=== PATIENT | female | born 1935 | race Caucasian/White ===

== ENCOUNTER → 2023-12-17 10:22 | Outpatient (REF) | payer OTHER, SELFPAY ==
[2023-12-17 13:41] LABS: Vitamin D, 25-OH*** 40.2 ng/mL (30-80)
== END ==
LOC: OLABSOL 10:22
PROVIDERS: ATTENDING PHYSICIAN Hospitalist
DX: D51.9 Vitamin B12 deficiency anemia, unspecified (principal)
CPT/HCPCS: 36415; 82306

== ENCOUNTER → 2023-12-31 13:03 | Outpatient (REF) | payer OTHER, SELFPAY | LOC: RAD 13:03 | PROVIDERS: ATTENDING PHYSICIAN Surgery Vascular Surgery; FAMILY PHYSICIAN Hospitalist; REFERRING PHYSICIAN Internal Medicine Cardiovascular Disease | DX: I73.9 Peripheral vascular disease, unspecified (principal); I47.0 Re-entry ventricular arrhythmia | CPT/HCPCS: 71046; 93922; 93925 ==

== ENCOUNTER 2024-01-30 08:21 | Emergency (ER) | payer OTHER, SELFPAY ==
[2024-01-30 08:27] VITALS: BP 183/65
--- NOTE | 2024-01-30 09:47 | ED.GENMED ---
History of Present Illness
General
Chief Complaint: Extremity Pain (non-traumatic)
Source: patient and family
Exam Limitations: none
Time Seen by Provider: 01/30/24 08:28
Travel History
Have you had any contact with someone who has COVID-19?: No
Do you have any symptoms of coronavirus? Fever > 100 degrees, chills, cough, shortness of breath, sore throat, loss of taste or smell, muscle aches, or headache?: No
History of Present Illness
History of Present Illness:
89-year-old female who presents with right hip pain. Patient is nonambulatory. The patient does transfer but has not walked in some time. The patient reports pain on the lateral aspect of the hip at the greater trochanter on the right. There has
been no fall. Patient states she has had bursitis in the past in her shoulder and it feels somewhat similar but is in her hip. She did try some Tylenol this morning. The patient admits that she does not really have any pain when she lays still.
Past History
Past History
ED Past Medical History: Cancer (Skin CA), HTN, Hypercholesterolemia, NIDDM and Psychiatric (Depression)
ED Past Surgical History: Cholecystectomy, Gynecological (, D&E), Orthopedic (Right hip surgery), Tonsilectomy and Urological (Bladder tumors remoced)
Social History
Tobacco: Non-smoker
Alcohol: Occasional
Personal:
Living: with family
Employment: Retired
Family History
Family History: Hypertension
Phy Exam
Physical Exam
Physical Exam:
CONSTITUTIONAL Vital signs reviewed, Patient alert and oriented to person, place and time. Well-appearing
HEAD atraumatic, normocephalic.
EYES eyelids normal to inspection, Extraocular muscles intact, Conjunctiva normal, Sclera normal.
NECK normal range of motion, Trachea midline, no jugular venous distention.
RESP no respiratory distress
BACK No obvious deformities
UPPER EXTREMITY Gross Range of motion normal, gross motor strength normal
LOWER EXTREMITY Gross motor strength normal. Is able to flex at but there is some pain. No pain with internal/external rotation. Normal distal perfusion
NEURO Speech normal, No focal motor deficits include, Grant coma scale 15, Memory normal, Cranial Nerves intact to screening exam.
SKIN Skin warm, dry, and normal in color.
Course
Orders/Labs/Results
Orders:
Orders
01/30/24 08:54
Hip, Right 2-3 Views [CR Hip - RT w/wo Pel 2-3 Vw*] Urgent
Comment:
Reason For Exam: nontraumatic pain
Include a pelvis x-ray?: Yes
Vital Signs
Initial and Last Documented VS:
Initial Vital Signs
Temp Pulse Resp BP Pulse Ox
97.5 F 55 20 183/65 97
01/30/24 08:27 01/30/24 08:27 01/30/24 08:27 01/30/24 08:27 01/30/24 08:27
Last Documented Vital Signs
Temp Pulse Resp BP Pulse Ox
97.5 F 55 20 183/65 97
01/30/24 08:27 01/30/24 08:27 01/30/24 08:27 01/30/24 08:27 01/30/24 08:27
MDM/Problems Addressed
MDM/Problems Addressed:
Trochanteric bursitis
*Radiology
Radiology exam reviewed: all reviewed NAD by ED Provider
*Pulse Oximetry
Patient hypoxic: no
*Critical Care Note
Total Time (30-74mins, 75-104mins- exclusive of procedures): Not Applicable
Data Reviewed
Source: patient
Prescriptions/Medications Considered But Not Given:
Considered narcotic pain medication but patient appears comfortable.
Patient Management
Escalation/DeEscalation of care consider admission/obs:
Patient appears well. Suspect trochanteric bursitis. I do feel that she is okay for very small doses of anti-inflammatories and will refer to orthopedics for possible injection if symptoms persist. Continue Tylenol. Patient is already
nonambulatory. No evidence for infection.
ED Attending Note
-
Portions of this chart may have been created with voice recognition software.� Occasional wrong word or��sound alike� substitutions may have occurred due to the inherent limitations of voice recognition software.
Discharge Plan
Departure
Patient Disposition: Home (Routine Discharge)
Date of Disposition: 01/30/24
Time of Disposition: 09:53
Patient with high blood pressure during this ER visit?: Yes
Discharge Problem:
Bursitis, trochanteric
Instructions: Bursitis (DC), BLOOD PRESSURE
Prescriptions:
No Action
cholecalciferol (vitamin D3) [Vitamin D3] 1,000 UNIT tablet
1,000 unit PO DAILY
ascorbic acid (vitamin C) [Vitamin C] 500 mg Tablet
500 mg PO DAILY PRN (Reason: supplement)
atorvastatin 10 mg Tablet
10 mg PO QPM 30 Days Qty: 0 0RF
Arthritis Hot Pain Relief 15-10 % Cream
1 applic topical QID Qty: 85 0RF
miconazole nitrate [Miconazorb AF] 2 % Powder
1 applic topical BIDPRN PRN (Reason: SKIN IRRITATION) Qty: 85 0RF
Eliquis 5 mg Tablet
5 mg PO BID Qty: 60 0RF
lidocaine 4 % Adhesive Patch,Medicated
1 patch topical DAILY Qty: 10 0RF
escitalopram oxalate 10 mg Tablet
10 mg PO DAILY Qty: 0 0RF
acetaminophen [Pain Relief ES (acetaminophen)] 500 mg Tablet
1,000 mg PO Q6HPRN PRN (Reason: pain or fever) Qty: 30 0RF
amiodarone 200 mg tablet
See Rx Instructions .ROUTE .COMPLEX Qty: 120 0RF
Rx Instructions:
2 tabs bid x 14 days, then 2 tabs daily x 14 days, then 1 tab daily
Referrals:
Christina,Marleny, [Family Provider] -
Activity Restrictions/Additional Instructions:
Please use Tylenol [id number] for pain. Please ice your injured part. Please see orthopedics in follow-up in the next 3 to 5 days. if Pain persists, injection may be necessary. Return immediately for fevers, worsening pain or any other
concerns.
Interventions
Interventions:
*Risk Screen - Suicide Last Done: 01/30/24 08:27
*General Assessment Last Done: 01/30/24 08:27
*Neglect/Abuse Screening Last Done: 01/30/24 08:27
[2024-01-30 10:35] VITALS: BP 142/70
[2024-01-30] MEDS: ULTRAM 50 MG PO (10:36)
== END 2024-01-30 11:24 | disposition home or self-care (01) ==
LOC: EMR 08:21
PROVIDERS: EMERGENCY PHYSICIAN Emergency Medicine; FAMILY PHYSICIAN Hospitalist
DX: M70.61 Trochanteric bursitis, right hip (principal); E11.9 Type 2 diabetes mellitus without complications; E78.00 Pure hypercholesterolemia, unspecified; I10 Essential (primary) hypertension; F32.A Depression, unspecified; Z82.49 Family history of ischemic heart disease and other diseases of the circulatory system; Z85.828 Personal history of other malignant neoplasm of skin; Z90.49 Acquired absence of other specified parts of digestive tract; Z96.641 Presence of right artificial hip joint
CPT/HCPCS: 99283; 73502

== ENCOUNTER 2024-02-03 18:25 | Observation (INO) | payer OTHER, SELFPAY ==
[2024-02-03] VITALS (12 sets, daily range): BP systolic 95–169; BP diastolic 49–76; PULSE 63; O2SAT 95; BMI 30.5
--- NOTE | 2024-02-03 10:22 | ED.GENMED ---
History of Present Illness
General
Chief Complaint: Musculo-Skeletal Complaint
Source: patient
Exam Limitations: none
Time Seen by Provider: 02/03/24 10:05
Nursing documentation reviewed up to this point in time: agreed with
Travel History
Have you had any contact with someone who has COVID-19?: No
Do you have any symptoms of coronavirus? Fever > 100 degrees, chills, cough, shortness of breath, sore throat, loss of taste or smell, muscle aches, or headache?: No
History of Present Illness
History of Present Illness:
81-year-old female with past medical history of A-fib currently on Eliquis hypertension hyperlipidemia, diabetes presenting to the emergency department today with concerns of right-sided hip discomfort. Was here 4 days ago for similar symptoms had
an x-ray showing significant arthritis but otherwise no fracture or emergent injuries. Was given steroids for possible bursitis. Was otherwise feeling somewhat better than Wednesday when she was transitioning from her wheelchair to her commode she
got tripped up and irritated her right hip she did not hit her head did not lose consciousness otherwise felt well but had worsening right-sided hip discomfort denies numbness weakness currently cannot stand up to her normal level she took tramadol
earlier today.
Past History
Past History
ED Past Medical History: Cancer (Skin CA), HTN, Hypercholesterolemia, NIDDM and Psychiatric (Depression)
ED Past Surgical History: Cholecystectomy, Gynecological (, D&E), Orthopedic (Right hip surgery), Tonsilectomy and Urological (Bladder tumors remoced)
Social History
Tobacco: Non-smoker
Alcohol: Occasional
Personal:
Living: with family
Employment: Retired
Family History
Family History: Hypertension
Review of Systems
Review of Systems
Allergies reviewed?: Yes
All Other Systems: ROS reviewed and negative except as documented in HPI and ROS
Phy Exam
Physical Exam
Physical Exam:
GENERAL: Alert , in no apparent distress
EYE: pupils equal and reactive
NECK: Supple, no significant adenopathy.
ENT: o/p clr, mmm.
CARDIAC: Regular rate and rhythm .
LUNGS: Clear breath sounds bilaterally, no acute respiratory distress, no wheezes/rales/rhonchi
ABDOMEN: Soft, without focal tenderness, no r/g, no cvat
NEUROLOGICAL: Alert and oriented, no focal neuro deficits
SKIN: Warm and dry, skin intact.
MUSCULOSKELETAL: No edema, well perfused. Significant increased pain to the right hip with hip flexion
PSYCH: Normal and appropriate interaction.
Course
Orders/Labs/Results
Orders:
Orders
02/03/24 10:21
CT Pelvis W/o Iv Contrast Urgent
Comment:
Reason For Exam: right hip pelvic pain, recent xray without fx
Acetaminophen [Tylenol] 1,000 mg PO NOW STA
02/03/24 11:59
Case Management Consult ONCE
Case Management Consult: Discharge Planning
Pt Eval And Treat Urgent
Activity Level: Ambulate
02/03/24 13:35
CBC/With Diff [Complete Blood Count/With Diff] Urgent
02/03/24 13:39
Oxycodone [Roxicodone] 5 mg PO NOW STA
02/03/24 13:56
Comprehensive Metabolic Panel Urgent
Comment: REDRAW -PREVIOUS SPECIMEN HEMOLYZED
Abnormal Lab Results
02/03/24
13:35
RBC 4.14 L 10^6/uL
(4.20-5.40)
Hct 36.9 L %
(37.0-47.0)
RDW 14.9 H %
(11.5-14.5)
Absolute Monos (auto) 0.7 H 10^3/uL
(0.1-0.6)
Monocytes % 11.7 H %
(1.7-9.3)
02/03/24 13:35
Vital Signs
Initial and Last Documented VS:
Initial Vital Signs
Temp Pulse Resp BP Pulse Ox
97.6 F 65 16 159/62 100
02/03/24 10:04 02/03/24 10:04 02/03/24 10:04 02/03/24 10:04 02/03/24 10:04
Last Documented Vital Signs
Temp Pulse Resp BP Pulse Ox
97.6 F 62 18 139/69 97
02/03/24 10:04 02/03/24 17:00 02/03/24 17:00 02/03/24 17:00 02/03/24 17:08
MDM/Problems Addressed
MDM/Problems Addressed:
89-year-old female presenting to the emergency department today with concerns of right-sided hip discomfort make it difficult to ambulate at this point. Typically at baseline will transfer does not walk on her own. Unable to transfer at this point
at her nursing facility. Currently in assisted care denies additional injuries. Here she has increased discomfort with hip flexion no overlying redness or swelling or warmth. Plan for CT scan for further assessment concerning recent x-ray did not
show any specific findings other than arthritis. CT scan without emergent findings patient unable to ambulate with PT case management unable to upgrade her care today plan to admit for further management.
*Critical Care Note
Total Time (30-74mins, 75-104mins- exclusive of procedures): Not Applicable
ED Attending Note
-
Portions of this chart may have been created with voice recognition software.� Occasional wrong word or��sound alike� substitutions may have occurred due to the inherent limitations of voice recognition software.
Discharge Plan
Departure
Patient Disposition: Admit
Date of Disposition: 02/03/24
Time of Disposition: 17:11
Admit to: Med/Surg
Admit to doctor: Wesly
Presentation/result/management discussed w/ accepting MD/DO: Hospitalist
Patient with high blood pressure during this ER visit?: No
Condition: Good
Covid-19: Not Applicable
Discharge Problem:
Hip pain, right, Ambulatory dysfunction
Prescriptions:
No Action
ascorbic acid (vitamin C) [Vitamin C] 500 mg Tablet
500 mg PO DAILY
atorvastatin 10 mg Tablet
10 mg PO QPM 30 Days Qty: 0 0RF
Eliquis 5 mg Tablet
5 mg PO BID Qty: 60 0RF
prednisone 10 mg Tablet
See Rx Instructions .ROUTE .COMPLEX Qty: 30 0RF
Patient Comments:
02/03/2024, per daughter, pt. started taking this med. on Wednesday (01/30/2024) and she takes it after dinner; pt. is on her second dose of 30 mg today but hasn't taken it yet.
Rx Instructions:
02/03/2024,
Take By Mouth:
40 mg daily x3 days, 30 mg daily x3 days,
20 mg daily x3 days, 10 mg daily x3 days.
sennosides [senna] 8.6 mg Tablet
17.2 mg PO DAILYPRN PRN (Reason: constipation)
lidocaine [Aspercreme (lidocaine)] 4 % Adhesive Patch,Medicated
1 patch TOPICAL DAILY PRN (Reason: apply to right hip)
amiodarone 200 mg Tablet
200 mg PO DAILY
acetaminophen [Tylenol Extra Strength] 500 mg Tablet
1,000 mg PO Q6H PRN (Reason: mild pain)
lisinopril 5 mg Tablet
5 mg PO DAILY
furosemide 20 mg Tablet
20 mg PO MOTH@0800
calcium citrate-vitamin D3 250 mg-5 mcg (200 unit) Tablet
2 tab PO BID
Muscle Rub 15-10 % Cream
1 applic TOPICAL QIDPRN PRN (Reason: apply to right hip)
Medi-Honey
1 applic topical TUTHSA
tramadol 50 mg tablet
50 mg PO TID
Patient Comments:
02/03/2024, prescribed TIDPRN but pt. has been taking TID.
Referrals:
Marleny Vasquez, [Family Provider] -
Interventions
Interventions:
*Risk Screen - Suicide Last Done: 02/03/24 10:09
*General Assessment Last Done: 02/03/24 10:09
*Neglect/Abuse Screening Last Done: 02/03/24 10:09
*ED COVID-19 Vaccine History Last Done: 02/03/24 10:09
ED-Musculoskeletal Assessment Last Done: 02/03/24 10:10
[2024-02-03] MEDS: TYLENOL 1000 MG PO (10:58)
[2024-02-03 13:45] LABS: % Immature Granulocytes 0.2 % (0-0.5); % Lymphocytes 21.1 % (20.5-51.1); % Monocytes 11.7 % (1.7-9.3); Absolute Lymphocytes 1.3 10^3/uL (1.2-3.4); Absolute Monocytes 0.7 10^3/uL (0.1-0.6); Absolute Neutrophils 4.1 10^3/uL (1.4-6.5); Hematocrit 36.9 % (37.0-47.0); Hemoglobin 12.6 g/dL (12.0-16.0); Mean Corp Hgb Conc. 34.1 g/dL (33.0-37.0); Mean Corpuscular Hgb 30.4 pg (27.0-31.0); Mean Corpuscular Volume 89.1 fL (81.0-99.0); Nucleated Red Blood Cells % 0 %; Platelet Count 226 10^3/uL (130-400); Red Blood Cell Count 4.14 10^6/uL (4.20-5.40); Red Cell Dist. Width 14.9 % (11.5-14.5); White Blood Cell Count 6.1 10^3/uL (4.8-10.8)
[2024-02-03] MEDS: ROXICODONE 5 MG PO (13:52)
--- NOTE | 2024-02-03 14:58 | CM ---
Patient seen in ED with daughter Martha.
Patient from [facility]..
TC to Jaspreet from [place] to see if patient would be accepted back with services.
Per Jaspreet, she discussed with the WIRE FRAME DIPPER and recommendation is for skilled prior to return.
PT recommending skilled rehab.
At baseline patient lives with spouse in a 1 story apartment at [place].
Patient is WC bound, independent with transfers and self care.
Now with hip pain.
Patient recently in [facility].
Discussed with patient and daughter, patient would prefer home, but agrees to rehab.
Referrals to [facility], [facility], [facility], [facility], and [facility].
Await bed availability and [employer] insurance auth.
Plan: skilled rehab when bed available and authorization received will also require ambulance authorization.
--- NOTE | 2024-02-03 17:10 | HPS.HSE ---
Addendum entered and electronically signed by Rob Cross MD 02/03/24 17:56:
I saw and examined the patient.
The METROLOGY ENGINEER or PA's note was reviewed and I agree with the note.
Comment: History as noted and discussed with patient's family at bedside (daughter on) patient has exquisite pain with any movement of the right leg although she was treated for a right greater trochanteric bursitis for point of tenderness seems to
be in the midshaft laterally of her right femur x-ray and CT results noted and reviewed and no signs of fracture as per the request of the patient's daughter regarding an injection I do not see where a steroid injection would be of help in this
setting as pain seems to be mostly referred to the area of the midshaft right femur and a more of the vastus lateralis area over her right thigh rating down to her leg with any movement apparently the patient is wheelchair-bound but point of
contention seems to be mainly pain management at this point and will try and optimize that by placing her on a combination of oxycodone and acetaminophen such as Percocet should that be unsuccessful may be a trial of hydrocodone such as Vicodin may
also offer some benefit doubt the steroid management she has had the last several days has done much to alleviate her pain will need to see if we can get her into a rehab facility in the next 24 hours and will treat his chronic ambulatory
dysfunction with and the need for higher level of care than when she came from for further management as her contralateral hip has severe degenerative joint disease and probably also needs to be replaced
Original Note:
Family Physician
-
Family Physician: Marleny Vasquez,
Chief Complaint
-
Weakness unable to stand
History of Present Illness
89-year-old female from [facility] assisted living who reportedly was pivoting 4 days ago and was seen in the ER for pain in her right hip and discharged with right hip bursitis. They are was no evidence of fracture. He started taking prednisone on
01/30/2024 she is on her second dose of 30 mg 1 day left then 20 x 3 then 10 x 3. Her daughter states she did fall 2 days ago at home. SHe normally stands and pivots to a wheelchair at her assisted living but has been unable to do so for the past 2
days and facility states she needs higher level of care. In the ER she had a CT of the pelvis showing history of right hip replacement no acute fractures.
She has past medical history of A-fib, NSTEMI, aortic stenosis ,HTN, HLD, chronic ambulatory dysfunction stands to pivot to wheelchair, arthritis, diet-controlled DM2, bladder and skin cancer, depression, chronic peripheral edema.
Medical History
Past Medical History
Past Medical History: Reports Other
Additional Past Medical History:
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
Cancer (various Skin Carmen, diffent types in different places)
Status post Mohs surgery�
basal cell carcinoma��
History of melanoma
SCC (squamous cell carcinoma) of skin
essential HTN,
Hypercholesterolemia,
NIDDM
Controlled type 2 diabetes mellitus with diabetic polyneuropathy, without long-term current use of insulin
Depression
Anxiety
Overactive bladder
Hx bladder cancerGeneralized osteoarthritis
Dependence on wheelchair
Past Surgical History: Reports Other
Additional Past Surgical History:
Cholecystectomy
, D&E
Status post right hip replacement
Tonsilectomy
History of bladder cancer
-Bladder tumors removed
Social History
Tobacco: Non-smoker
Alcohol: Occasional
Drug: None
Personal:
Living: With Family
Employment: Retired
Family History
Family History: Not pertinent
Allergies / Home Medications
Allergies reflects when Allergies were last updated in [employer].
Home Medications with original date entered in [facility]
Allergy/Medication List:
Allergies
Allergy/AdvReac Type Severity Reaction Status Date / Time
codeine [Codeine] Allergy Unknown Verified 01/30/24 08:30
Sulfa (Sulfonamide Allergy Unknown Verified 01/30/24 08:30
Antibiotics)
Home Medications
ascorbic acid (vitamin C) 500 mg tablet (Vitamin C) 500 mg PO DAILY supplement 07/24/23
apixaban 5 mg tablet (Eliquis) 5 mg PO BID #60 tabs 07/30/23
atorvastatin 10 mg tablet 10 mg PO QPM 30 days #0 tabs 07/30/23
prednisone 10 mg tablet See Rx Instructions .Route .COMPLEX #30 tabs 01/30/24
Medi-Honey 1 applic topical TUTHSA apply to inside foot/big toe 02/03/24
acetaminophen 500 mg tablet (Tylenol Extra Strength) 1,000 mg PO Q6H PRN mild pain 02/03/24
amiodarone 200 mg tablet 200 mg PO DAILY 02/03/24
calcium citrate 250 mg calcium-vitamin D3 5 mcg (200 unit) tablet 2 tab PO BID 02/03/24
furosemide 20 mg tablet 20 mg PO MOTH@0800 02/03/24
lidocaine 4 % topical patch (Aspercreme (lidocaine)) 1 patch topical DAILY PRN apply to right hip 02/03/24
lisinopril 5 mg tablet 5 mg PO DAILY 02/03/24
methyl salicylate 15 %-menthol 10 % topical cream (Muscle Rub) 1 applic topical QIDPRN PRN apply to right hip 02/03/24
sennosides 8.6 mg tablet (senna) 17.2 mg PO DAILYPRN PRN constipation 02/03/24
tramadol 50 mg tablet 50 mg PO TID Pain 02/03/24
Review of Systems
-
History Source: Patient and Family (Daughter at bedside)
A 12 point ROS was completed and negative except as noted: Yes
EENT: Denies Sore Throat or Runny Nose
Respiratory: Denies Cough or Trouble Breathing
Cardiac: Denies Chest Pain, Diaphoresis, Palpitations or Syncope
Abdomen/GI: Denies Abdominal Pain, Nausea, Vomiting, Diarrhea, Constipated or Bloody Stools
: Denies Dysuria, Frequency, Flank Pain, Incontinence or Difficulty Voiding
Musculoskeletal: Reports Joint Pain (Right hip) and Edema (Chronic bilateral +2); Denies Joint Swelling, Muscle Pain or Muscle Stiffness
Skin: Reports Other (Healed right great toe prior ulcer); Denies Itching or Rash
Neurological: Denies Dizzy, Headache or Weakness
Endocrine: Reports No Symptoms
Hematologic/Lymphatic: Reports No Symptoms
Psych: Reports Calm
Physical Exam
Vital Signs
Vital Signs
Temp Pulse Resp BP Pulse Ox
97.6 F 62 18 139/69 97
02/03/24 10:04 02/03/24 17:00 02/03/24 17:00 02/03/24 17:00 02/03/24 17:08
Physical Exam
General: Comfortable, Conversant and Pain; No Fever or Chills
HEENT: NormoCephalic, Anicteric, PERRLA, [place] Conjunctivae and No Ptosis
Respiratory: Clear; No Wheezes, Rales or Rhonchi
Cardiac: S1/S2 and Peripheral Edema (+2 bilateral lower extremity edema); No Murmur, Rub or Gallop
Breast: Deferred by me
GI: Soft, Non Tender, Non Distended, Normal Bowel Sounds and No Hepatosplenomegaly
Genito-urinary: Deferred by me
Musculoskeletal: Edema, Left Lower Extremity (+2 bilateral lower extremity edema) and Edema, Right Lower Extremity (+2 bilateral lower extremity edema); No Edema, Left Upper Extremity or Edema, Right Upper Extremity
Skin: Warm, Dry and Ulcers (Healed right great toe prior ulcer)
Neuro: AO x 3 (Gets confused over dates times and places daughter states has short-term memory impairment), Nonfocal/grossly intact and Cranial Nerves Intact; No Slurred Speech, Facial Droop or Tremors
Psych: Calm
Laboratory Results
-
02/03/24 13:35
Laboratory Results
Total Bilirubin Cancelled 02/03/24 13:35
AST Cancelled 02/03/24 13:35
ALT Cancelled 02/03/24 13:35
Alkaline Phosphatase Cancelled 02/03/24 13:35
Impression/Plan
-
Impression/plan:
Observation MedSurg
#Acute on chronic ambulatory dysfunction status post pivoting with acute right hip pain
-Typically stands to pivot to wheelchair unable to do so
-Patient with no relief on several days of tramadol
-Percocet 03/17/2025 every 6 hours scheduled
-PT/OT/case management consult family requesting for [facility] for SNF
CT pelvis: No acute abnormalities, right hip replacement, severe arthritic changes of the left hip, multilevel lumbar DDD
#Paroxysmal A-fib
#History of cardioversions 07/27/2023, 07/29/2023
-Continue Eliquis 5 mg twice daily, amiodarone 200 mg daily
#Chronic peripheral edema
Lasix 20 mg Wednesday
Add Tubigrip's
#HTN- benign
-Continue Lisinopril 5 mg daily
#HLD
-continue atorvastatin 10 mg every afternoon
#Hx NSTEMI
-Continue statin, BP control
#Aortic stenosis
#Diet-controlled DM2
1800 ADA diet
Other PMH
Bladder cancer with tumor removal
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
DVT prophylaxis
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
DNR per patient with daughter present at bedside
[2024-02-03 20:48] LABS: ALT (SGPT) 15 U/L (0-35); AST (SGOT) 23 U/L (14-36); Albumin 3.2 g/dl (3.5-5.0); Alkaline Phosphatase 68 U/L (38-126); Blood Urea Nitrogen 32 mg/dl (7-17); Calcium 8.9 mg/dl (8.4-10.2); Carbon Dioxide 30 mmol/L (22-30); Chloride 102 mmol/L (98-107); Estimated Creatinine Clearance 43 ml/min; Glucose 103 mg/dl (70-99); Potassium 3.5 mmol/L (3.5-5.1); Sodium 137 mmol/L (135-145); Total Bilirubin 1.1 mg/dl (0.2-1.3); Total Protein 5.7 g/dl (6.3-8.2); eGFR > 60.00
[2024-02-03 21:17] LABS: Glucose - Point of Care 98 mg/dl (70-99)
[2024-02-03] MEDS: ELIQUIS 5 MG PO (22:03)
[2024-02-03] MEDS: SENOKOT 17.1999999999999993 MG PO (22:04)
[2024-02-03] MEDS: OSCAL 500 + D 500 MG PO (22:04)
[2024-02-03] MEDS: LIPITOR 10 MG PO (22:04)
[2024-02-04] MEDS: PERCOCET 5/325 1 TABLET PO ×2 (00:39→06:09)
--- NOTE | 2024-02-04 03:36 | PTCARENOTE ---
Pt received from ED [email or web address] able to make her needs known. 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
[2024-02-04 07:30] VITALS: BP 140/67
[2024-02-04 08:11] LABS: Glucose - Point of Care 77 mg/dl (70-99)
[2024-02-04 09:00] LABS: % Basophils 0.2 % (0-2); % Eosinophils 1.1 % (0-6); % Immature Granulocytes 0.2 % (0-0.5); % Lymphocytes 31.1 % (20.5-51.1); % Monocytes 11.3 % (1.7-9.3); % Neutrophils 56.1 % (42.2-75.2); Absolute Eosinophils 0.1 10^3/uL (0-0.7); Absolute Lymphocytes 1.7 10^3/uL (1.2-3.4); Absolute Monocytes 0.6 10^3/uL (0.1-0.6); Hematocrit 37.4 % (37.0-47.0); Mean Corp Hgb Conc. 32.1 g/dL (33.0-37.0); Mean Corpuscular Hgb 29.7 pg (27.0-31.0); Mean Corpuscular Volume 92.6 fL (81.0-99.0); Mean Platelet Volume 10.9 fL (7.4-10.4); Nucleated Red Blood Cells % 0 %; Platelet Count 216 10^3/uL (130-400); Red Blood Cell Count 4.04 10^6/uL (4.20-5.40); Red Cell Dist. Width 15.5 % (11.5-14.5); White Blood Cell Count 5.3 10^3/uL (4.8-10.8)
--- NOTE | 2024-02-04 09:13 | W.PN.HOSP.TC ---
Today's Communication/Plan
-
Change Percocet to [place] to see if that helps her pain anymore
Apply Lidoderm patch to the mid thigh laterally where most of her pain is
I do not think an intertrochanteric joint and injection would be of help given location of pain
In need of rehab to improve transfers to wheelchair
Assessment / Plan
Assessment / Plan
89-year-old female from [facility] assisted living who reportedly was pivoting 4 days ago and was seen in the ER for pain in her right hip and discharged with right hip bursitis.� They are was no evidence of fracture.� He started taking prednisone on
01/30/2024 she is on her second dose of 30 mg 1 day left then 20 x 3 then 10 x 3.� Her daughter states she did fall 2 days ago at home.� SHe normally stands and pivots to a wheelchair at her assisted living but has been unable to do so for the past 2
days and facility states she needs higher level of care.� In the ER she had a CT of the pelvis showing history of right hip replacement no acute fractures.
She has past medical history of A-fib, NSTEMI, aortic stenosis ,HTN, HLD, chronic ambulatory dysfunction stands to pivot to wheelchair, arthritis, diet-controlled DM2, bladder and skin cancer, depression, chronic peripheral edema.
Musculoskeletal: Edema, Left Lower Extremity (+2 bilateral lower extremity edema) and Edema, Right Lower Extremity (+2 bilateral lower extremity edema); No Edema, Left Upper Extremity or Edema, Right Upper Extremity
Skin: Warm, Dry and Ulcers (Healed right great toe prior ulcer)
Neuro: AO x 3 (Gets confused over dates times and places daughter states has short-term memory impairment), Nonfocal/grossly intact and Cranial Nerves Intact; No Slurred Speech, Facial Droop or Tremors
Psych: Calm
Observation MedSurg
#Acute on chronic ambulatory dysfunction status post pivoting with acute right hip pain
-Typically stands to pivot to wheelchair unable to do so
-Patient with no relief on several days of tramadol
-Percocet 03/17/2025 every 6 hours scheduled not very successful hold transition to hydrocodone in form of Adams today
-Either way note further criteria for him patient hospital stay and needs rehab
-PT/OT/case management consult family requesting for [facility] for SNF
� � ���CT pelvis: No acute abnormalities, right hip replacement, severe arthritic changes of the left hip, multilevel lumbar DDD
#Paroxysmal A-fib
#History of cardioversions 07/27/2023, 07/29/2023
-Continue Eliquis 5 mg twice daily, amiodarone 200 mg daily
#Chronic peripheral edema
Lasix 20 mg Wednesday
Add Tubigrip's
#HTN- benign
-Continue Lisinopril� 5 mg daily
#HLD
-continue atorvastatin 10 mg every afternoon
#Hx NSTEMI
-Continue statin, BP control
#Aortic stenosis
#Diet-controlled DM2
1800 ADA diet
Other PMH
Bladder cancer with tumor removal
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
DVT prophylaxis
Continue STOCKHOLDER Eliquis
DNR per patient with daughter present at bedside
Anticipated Discharge: Today
Subjective/Interval History
-
Date of Service: February 04, 2024
Awoke from sleep with some confusion/still admits to severe pain to her right leg but noted that she is lying on her left side with the right leg flexed at the knee limited if any range of motion
Objective Data
-
Labs:
Laboratory Results
02/04/24
07:22
WBC 5.3
Hgb 12.0
Hct 37.4
Plt Count 216
Sodium Pending
Potassium Pending
Chloride Pending
Carbon Dioxide Pending
BUN Pending
Creatinine Pending
Glucose Pending
Calcium Pending
Vital Signs:
Vital Signs
Temp Pulse Resp BP Pulse Ox
97.9 F 55 18 140/67 95
02/04/24 07:30 02/04/24 07:30 02/04/24 07:30 02/04/24 07:30 02/04/24 07:30
I&O
02/03/24 02/04/24 02/05/24
06:59 06:59 06:59
Intake Total 0 / 0
Balance 0 / 0
Review of Systems
-
Unable to obtain full review of systems at this time due to: Dementia
History Source: Patient and Family
Constitutional: Reports Fatigue and Weakness
EENT: Reports No Symptoms Reported
Respiratory: Reports No Symptoms
Cardiac: Reports No Symptoms
Musculoskeletal: Reports Muscle Pain
Skin: Reports Other (No rash)
Physical Exam
-
General: No Apparent Distress (Elicits distress with any movement of right leg)
Respiratory: Clear to Auscultation
Cardiac: Regular Rhythm
GI: Soft
Neuro: Awake, Alert and Oriented
Psych: Calm
Data Reviewed
-
Total Time Spent with Patient (in minutes): 45
Labs: Labs Reviewed by me (Labs stable)
[2024-02-04 09:47] LABS: Blood Urea Nitrogen 27 mg/dl (7-17); Calcium 8.3 mg/dl (8.4-10.2); Carbon Dioxide 30 mmol/L (22-30); Chloride 104 mmol/L (98-107); Estimated Creatinine Clearance 43 ml/min; Glucose 76 mg/dl (70-99); Potassium 3.7 mmol/L (3.5-5.1); Sodium 136 mmol/L (135-145); eGFR > 60.00
[2024-02-04] MEDS: ELIQUIS 5 MG PO (09:57)
[2024-02-04] MEDS: VITAMIN C 500 MG PO (09:57)
[2024-02-04] MEDS: ZESTRIL 5 MG PO (09:57)
[2024-02-04] MEDS: OSCAL 500 + D 500 MG PO (09:58)
[2024-02-04] MEDS: PACERONE 200 MG PO (09:58)
[2024-02-04] MEDS: NORCO 7.5/325 1 TABLET PO (10:05)
[2024-02-04] MEDS: LIDOCAINE 4% PATCH 1 PATCH TOPICAL (10:05)
[2024-02-04 11:56] LABS: Glucose - Point of Care 82 mg/dl (70-99)
[2024-02-04 12:25] VITALS: BP 160/61; PULSE 54; O2SAT 95
--- NOTE | 2024-02-04 13:13 | W.DS.TRANS ---
DC Summary - Child Care Aide
-
Discharge Instructions:
Sleep Apnea Risk Low
Discharge Diagnosis/Procedures Ambulatory dysfunction
Degenerative joint disease of the hip
No signs of fracture via imaging
Musculoskeletal pain
Diet As tolerated
Additional Activity Goal toward pivot transfers into wheelchair
Instructions:
Stand-Alone Forms:
Changes to Home Medications: Yes
Discharge Medications:
DC Medications w/original date entered in [facility]
ascorbic acid (vitamin C) 500 mg tablet (Vitamin C) 500 mg PO DAILY supplement 07/24/23
apixaban 5 mg tablet (Eliquis) 5 mg PO BID #60 tabs 07/30/23
atorvastatin 10 mg tablet 10 mg PO QPM 30 days #0 tabs 07/30/23
Medi-Honey 1 applic topical TUTHSA apply to inside foot/big toe 02/03/24
acetaminophen 500 mg tablet (Tylenol Extra Strength) 1,000 mg PO Q6H PRN mild pain 02/03/24
amiodarone 200 mg tablet 200 mg PO DAILY Arrhythmia 02/03/24
calcium citrate 250 mg calcium-vitamin D3 5 mcg (200 unit) tablet 2 tab PO BID Supplement 02/03/24
furosemide 20 mg tablet 20 mg PO MOTH@0800 Fluid Retention/Swelling 02/03/24
lisinopril 5 mg tablet 5 mg PO DAILY Blood Pressure 02/03/24
methyl salicylate 15 %-menthol 10 % topical cream (Muscle Rub) 1 applic topical QIDPRN PRN apply to right hip 02/03/24
sennosides 8.6 mg tablet (senna) 17.2 mg PO DAILYPRN PRN constipation 02/03/24
hydrocodone 7.5 mg-acetaminophen 325 mg tablet 1 tab PO Q4HPRN PRN rt leg pain #30 tabs 02/04/24
lidocaine 4 % topical patch (Aspercreme (lidocaine)) 1 patch topical DAILY PRN apply to right hip/mid lateral thigh #0 ea 02/04/24
prednisone 10 mg tablet See Rx Instructions .ROUTE .COMPLEX Anti-Inflammatory 02/04/24
Home Medication Changes
hydrocodone 7.5 mg-acetaminophen 325 mg tablet 1 tab PO Q4HPRN PRN rt leg pain #30 tabs 02/04/24
lidocaine 4 % topical patch (Aspercreme (lidocaine)) 1 patch topical DAILY PRN apply to right hip/mid lateral thigh #0 ea 02/04/24
prednisone 10 mg tablet See Rx Instructions .ROUTE .COMPLEX Anti-Inflammatory 02/04/24
Pending Results: No
Total time spent discharging patient (in min): 45
--- NOTE | 2024-02-04 13:17 | W.DCSUMMARY ---
Discharge Summary
Discharge Data
Date of Admission: 02/03/24
Date of Discharge: 02/04/24
-
Pending Results: No
Hospital Course
89-year-old female from [facility] who reportedly was pivoting 4 days ago and was seen in the ER for pain in her right hip and discharged with right hip bursitis.� They are was no evidence of fracture.� He started taking prednisone on
01/30/2024 she is on her second dose of 30 mg 1 day left then 20 x 3 then 10 x 3.� Her daughter states she did fall 2 days ago at home.� SHe normally stands and pivots to a wheelchair at her assisted living but has been unable to do so for the past 2
days and facility states she needs higher level of care.� In the ER she had a CT of the pelvis showing history of right hip replacement no acute fractures.
She has past medical history of A-fib, NSTEMI, aortic stenosis ,HTN, HLD, chronic ambulatory dysfunction stands to pivot to wheelchair, arthritis, diet-controlled DM2, bladder and skin cancer, depression, chronic peripheral edema.
She is observed overnight initial management included continuation of a Lidoderm patch over the area of the right leg with little benefit is apparent on exam the patient's prominent pain is over the mid lateral thigh and not at the greater
trochanteric prominence and thusly intertrochanteric injection would not be contributory in relieving her symptoms. Initial attempts at addition of oxycodone in combination with acetaminophen was less than effective and so she was changed to
hydrocodone in the form of [place] 7.5 mg over 325 and the be continued going forward
�CT pelvis: No acute abnormalities, right hip replacement, severe arthritic changes of the left hip, multilevel lumbar DDD
Patient remains wheelchair-bound and goal is now for independent with transfers and pivoting to continue with wound care status she has been accepted at [facility] and her rehab course should continue at that facility under a skilled rehab
setting/should her pain be refractory may be prudent to obtain pain management consultation as she is already failed a course of steroid management and narcotic analgesia also should be kept in mind she has significant degenerative joint disease to
her left hip also impacting on her progress or lack of.
Discharge Plan
-
Patient Disposition: Intermediate/SNF
Discharge Diagnosis/Procedures: Ambulatory dysfunction
Degenerative joint disease of the hip
No signs of fracture via imaging
Musculoskeletal pain
Diet: As tolerated
Additional Activity: Goal toward pivot transfers into wheelchair
Referrals:
Marleny Vasquez, [Family Provider] -
Prescriptions:
New
hydrocodone-acetaminophen 7.5-325 mg Tablet
1 tab PO Q4HPRN PRN (Reason: rt leg pain) Qty: 30 0RF
Continued
ascorbic acid (vitamin C) [Vitamin C] 500 mg Tablet
500 mg PO DAILY
atorvastatin 10 mg Tablet
10 mg PO QPM 30 Days Qty: 0 0RF
Eliquis 5 mg Tablet
5 mg PO BID Qty: 60 0RF
sennosides [senna] 8.6 mg Tablet
17.2 mg PO DAILYPRN PRN (Reason: constipation)
amiodarone 200 mg Tablet
200 mg PO DAILY
acetaminophen [Tylenol Extra Strength] 500 mg Tablet
1,000 mg PO Q6H PRN (Reason: mild pain)
lisinopril 5 mg Tablet
5 mg PO DAILY
furosemide 20 mg Tablet
20 mg PO MOTH@0800
calcium citrate-vitamin D3 250 mg-5 mcg (200 unit) Tablet
2 tab PO BID
Muscle Rub 15-10 % Cream
1 applic TOPICAL QIDPRN PRN (Reason: apply to right hip)
Medi-Honey
1 applic topical TUTHSA
prednisone 10 mg tablet
See Rx Instructions .ROUTE .COMPLEX
Patient Comments:
02/03/2024, per daughter, pt. started taking this med. on Wednesday (01/30/2024) and she takes it after dinner; pt. is on her second dose of 30 mg today but hasn't taken it yet.
Rx Instructions:
02/03/2024,
Take By Mouth:
40 mg daily x3 days, 30 mg daily x3 days,
20 mg daily x3 days, 10 mg daily x3 days.
lidocaine [Aspercreme (lidocaine)] 4 % Adhesive Patch,Medicated
1 patch TOPICAL DAILY PRN (Reason: apply to right hip/mid lateral thigh) Qty: 0 0RF
Discontinued
tramadol 50 mg tablet
50 mg PO TID
Patient Comments:
02/03/2024, prescribed TIDPRN but pt. has been taking TID.
Discharge Orders:
Discharge Patient (As Directed); Ordered 02/04/24
Ordered By: Rob Cross
[2024-02-04 13:45] VITALS: BP 156/61
--- NOTE | 2024-02-04 14:29 | CM ---
CM following re: d/c planning
Chart reviewed
Pt is medically stable for d/c and will be transferred to [facility]
Auth obtained and patient is not a [employer] patient
CM spoke with the patient's daughter Martha who was in agreement for pt to be transferred to [facility]
LOMN & inhouse transport forms completed and provided to and transport confirmed for 2pm
No additional d/c needs noted
PLAN: d/c to [facility]
Report: [phone]

Authorization details provided by Maine Hernadez @ [facility]
Pt approved for 5 days skilled level 1
SOC 02/04/24 with NRD 02/07
Auth# [id number]
Concurrent reviews to be called into
Acute Care BLS auth# [id number]
== END 2024-02-04 14:11 ==
LOC: 4 EAST ACU 18:25
PROVIDERS: Clinical Nurse Specialist Family Health; Physician Assistant; ADMITTING PHYSICIAN Internal Medicine; EMERGENCY PHYSICIAN Emergency Medicine; FAMILY PHYSICIAN Hospitalist
DX: M25.551 Pain in right hip (principal); R26.2 Difficulty in walking, not elsewhere classified; I48.0 Paroxysmal atrial fibrillation; M16.11 Unilateral primary osteoarthritis, right hip; I10 Essential (primary) hypertension; E11.42 Type 2 diabetes mellitus with diabetic polyneuropathy; E78.00 Pure hypercholesterolemia, unspecified; I35.0 Nonrheumatic aortic (valve) stenosis; I25.2 Old myocardial infarction; N32.81 Overactive bladder; M51.36 Other intervertebral disc degeneration, lumbar region; F32.A Depression, unspecified; F41.9 Anxiety disorder, unspecified; R10.2 Pelvic and perineal pain; R60.0 Localized edema; Z85.828 Personal history of other malignant neoplasm of skin; Z79.01 Long term (current) use of anticoagulants; Z82.49 Family history of ischemic heart disease and other diseases of the circulatory system; Z90.49 Acquired absence of other specified parts of digestive tract; Z79.52 Long term (current) use of systemic steroids; Z99.3 Dependence on wheelchair; Z85.51 Personal history of malignant neoplasm of bladder; Z96.641 Presence of right artificial hip joint; Z88.5 Allergy status to narcotic agent; Z88.2 Allergy status to sulfonamides; Z85.820 Personal history of malignant melanoma of skin; Z66 Do not resuscitate
CPT/HCPCS: 72192; 80048; 80053; 82962; 85025; 97167; 99285; G0378

== ENCOUNTER → 2024-07-19 15:53 | Outpatient (REF) | payer OTHER, SELFPAY | LOC: HWRCS 15:53 | PROVIDERS: ATTENDING PHYSICIAN Internal Medicine Cardiovascular Disease; FAMILY PHYSICIAN Hospitalist | DX: I35.0 Nonrheumatic aortic (valve) stenosis (principal) | CPT/HCPCS: 93306 ==

== ENCOUNTER → 2024-09-06 09:58 | Day surgery (SDC) | payer OTHER, SELFPAY ==
[2024-09-06] VITALS (17 sets, daily range): BP systolic 136–180; BP diastolic 55–79
--- NOTE | 2024-09-06 09:27 | CONSULT.STRU ---
Consultation
-
Date/Time Consultation Requested: 09/06/2024
Date/Time Consultation Performed: 09/06/2024
Requesting Provider: Josh Lai DO
Performing Provider: MORALES Delgado
Reason for Consultation: /TAVR
Patient History
Physicians
Family Physician: Marleny Vasquez DO
Outpatient Straight Tooth Gear Generator Operator: Francisco Vega MD
Primary Straight Tooth Gear Generator Operator: Francisco Vega MD
History of Present Illness
Ms. [facility] is a very pleasant 89 yof that presents with severe symptomatic associated with Chest pain and HADLEY. Her echocardiogram is notable for EF 55-60%, AV P/M 92/52, DOE 0.84, pk lisa 4.81, MAC with mild MR, mild-moderate TR, PAP 46.
Discussed the pathophysiology and treatment options of including SAVR and TAVR. Explained the evaluation process comprising of CT scan, CT surgical consult, dental clearance, and a heart team discussion. TAVR booklet, contact information,
prescriptions, and appointments given to patient.
Past Medical History
Past Medical History: Arrhythmias (A-flutter), Cancer (bladder), HTN, Hypercholesterolemia, NIDDM, Psychiatric (depression, anxiety), Valvular Disease (Aortic stenosis) and Other (CKD 3a, hiatal hernia, arthritis)
Past Surgical History
Past Surgical History: Cholecystectomy, Orthopedic ((R) THR) and Other (D&C, (L) cataract extraction, [facility], [facility]
Dental History
Dr. Jarrell, pt states she is UTD-Dental clearance form faxed
Family History
Mother: N/A
Father: N/A
Social History
Alcohol: None
Drug: None
Tobacco: Non-Smoker
Personal:
Living: With Spouse
Allergies
Allergy/AdvReac Type Severity Reaction Status Date / Time
codeine [Codeine] Allergy Unknown Verified 01/30/24 08:30
Sulfa (Sulfonamide Allergy Unknown Verified 01/30/24 08:30
Antibiotics)
Home Medications
�Medication �Instructions �Recorded �Confirmed �Type
ascorbic acid (vitamin C) 500 mg 500 mg PO DAILY supplement 07/24/23 02/03/24 History
tablet (Vitamin C)
apixaban 5 mg tablet (Eliquis) 5 mg PO BID #60 tabs 07/30/23 02/03/24 Rx
atorvastatin 10 mg tablet 10 mg PO QPM 30 days #0 tabs 07/30/23 02/03/24 Rx
Medi-Honey 1 applic topical TUTHSA apply to 02/03/24 02/03/24 History
inside foot/big toe
acetaminophen 500 mg tablet 1,000 mg PO Q6H PRN mild pain 02/03/24 02/03/24 History
(Tylenol Extra Strength)
amiodarone 200 mg tablet 200 mg PO DAILY Arrhythmia 02/03/24 02/03/24 History
calcium 250 mg (as 2 tab PO BID Supplement 02/03/24 02/03/24 History
citrate)-vitamin D3 5 mcg (200
unit) tablet
furosemide 20 mg tablet 20 mg PO MOTH@0800 Fluid 02/03/24 02/03/24 History
Retention/Swelling
lisinopril 5 mg tablet 5 mg PO DAILY Blood Pressure 02/03/24 02/03/24 History
methyl salicylate 15 %-menthol 10 1 applic topical QIDPRN PRN apply 02/03/24 02/03/24 History
% topical cream (Muscle Rub) to right hip
sennosides 8.6 mg tablet (senna) 17.2 mg PO DAILYPRN PRN 02/03/24 02/03/24 History
constipation
hydrocodone 7.5 mg-acetaminophen 1 tab PO Q4HPRN PRN rt leg pain 02/04/24 Rx
325 mg tablet #30 tabs
lidocaine 4 % topical patch 1 patch topical DAILY PRN apply to 02/04/24 02/03/24 Rx
(Aspercreme (lidocaine)) right hip/mid lateral thigh #0 ea
prednisone 10 mg tablet See Rx Instructions .ROUTE 02/04/24 02/03/24 History
.COMPLEX Anti-Inflammatory
STS%
STS %: 8.53
Review of Systems
-
History Source: Patient
General: Reports No Symptoms
HEENT: Reports Other ([place])
Respiratory: Reports No Symptoms
Cardiac: Reports No Symptoms
Abdomen/GI: Reports No Symptoms
Musculoskeletal: Reports Joint Pain
Physical Exam
Labs
08/30/2024
HH: 13.7/42.3
Plt: 198
BUN/Creatinine: 1.0
GFR: 54
Diagnostic Studies
Echocardiogram 07/19/2024
CONCLUSIONS
Normal left ventricular size with severe concentric hypertrophy and normal
systolic function. No regional wall motion abnormalities are seen. LV ejection
fraction is 55-60% by Anderson's method of discs. Diastolic function
indeterminate.
Normal right ventricular size and function.
Severe left atrial dilation.
Moderate right atrial dilation.
Mild mitral annular calcification. Mild mitral regurgitation.
Calcified, trileaflet aortic valve with severe aortic valve stenosis.
Mild to moderate tricuspid regurgitation.
Mild pulmonary hypertension. PASP estimated at 46 mmHg.
Aortic Valve
Calcified, trileaflet aortic valve with severe aortic valve stenosis.
Peak/mean gradients across the aortic valve are 92/52mmHg. Using an LVOT
diameter of 2.0cm, the aortic valve by the continuity equation is calculated at
0.84 cm2.
Cardiac Catheterization 09/06/2024:
CONCLUSIONS:
1. Right dominant circulation with a diminutive circumflex and a posterolateral arcade of the RCA perfusing the circumflex territory with no coronary artery disease.
2. Severe arterial tortuosity throughout, prohibiting radial artery access and requiring a long sheath for femoral artery catheter placement.
3. High bifurcation of the right common femoral artery.
4. Severe systemic hypertension.
5. Severe aortic valve stenosis by echocardiography (mean gradient 52 mmHg).
6. Normal filling pressures (PCWP = 13 mmHg at 77.1 kg).
7. Preserved cardiac function (cardiac index equals 2.54 L/min/m�).
RECOMMENDATIONS:
1. Expectant management after cardiac catheterization via right common femoral and right antecubital approach.
2. Limited weight bearing for one week.
3. Continue TAVR evaluation.
4. We will start nicardipine drip to allow for manual compression of the right common femoral artery and discontinue once we are satisfied with femoral artery hemostasis
Procedure Type: Isolated AVR
PERIOPERATIVE OUTCOME ESTIMATE %
Operative Mortality 8.53%
Morbidity & Mortality 13.4%
Stroke 2.91%
Renal Failure 3.41%
Reoperation 3.03%
Prolonged Ventilation 8.44%
Deep Sternal Wound Infection 0.069%
Long Hospital Stay (>14 days) 10.3%
Short Hospital Stay (<6 days)* 17.6%
Exam
General: Well Developed and Well Nourished
HEENT: Moist Mucous Membranes
Neck: Trachea Midline
Respiratory: Clear
Cardiac: Murmur (III/ SID)
GI: Soft, Non Tender and Non Distended
Rectal: Deferred by Provider
Skin: Warm
Neuro: Awake, Alert and Oriented
Psych: Calm
Assessment / Plan
-
Severe Aortic Stenosis
Continue with TAVR evaluation
Trend creatinine after contrast (Rx given)
TAVR CT scan (09/20)
CT surgical consult ([facility] 09/26)
Frailty testing and KCCQ12 at consult
Will hold Eliquis 48 hours before TAVR. Will place on aspirin while Eliquis held. Resume Eliquis post TAVR
Dental clearance
heart team discussion.
Data Reviewed
-
Computer Hardware Engineer: Report Reviewed by me and Discussed with Physician
Echo: Report Reviewed by me and Discussed with Physician
Labs: Labs Reviewed by me
Old Records: Reviewed (Dr. Vega's office note)
Total Time Spent with Patient (in minutes): 45
--- NOTE | 2024-09-06 12:36 | ITS.CL.CATH ---
Site Safety Manager - Catheterization
Cardiac Catheterization
Procedure Report:
CARDIAC CATHETERIZATION REPORT
Date of Procedure: 09/06/2024
Referring: Francisco Vega M.D.
Indication: Severe aortic valve stenosis, syncope.
PROCEDURE:
1. Right heart catheterization.
2. Coronary angiography.
ACCESS:
Failed 6 Slovak access of the right radial artery due to severe tortuosity.
35 cm 6 Slovak right common femoral artery using a modified Seldinger technique with a micropuncture kit under ultrasound guidance.
5 Slovak right antecubital vein.
CATHETERS:
1. 5 Slovak balloon wedge.
2. 5 Slovak JR4.
3. 5 Slovak JL 3.5.
HEMODYNAMIC DATA
Weight (kg): 77.1
AO (s/d/x mmHg): 169/67/105
LV (s/x mmHg): Not obtained.
PCWP (a/v/x mmHg): /
PA (s/d/x mmHg): 42
RV (s/x mmHg): 43/6
RA (a/v/x mmHg):
SVC SvO2 (%): 74.3
PA SvO2 (%): 76.1
SaO2 (%): 95.2
Hbg (g/dL): 12.8
CO (L/min): 4.52
CI (L/min/m2): 2.54
TPG (mmHg): 10
PVR (Hand Units): 2.21
SVR (dynes*seconds*cm^-5): 1752
AVO2 Diff (Volume %): 3.32
AV gradient (x, mmHg): Not obtained.
AV area (cm2): Not obtained.
LEFT VENTRICULOGRAPHY: Not performed.
CORONARY ANGIOGRAPHY
Dominance: Right.
Left Main: Large size, trifurcating vessel. There is no coronary artery disease.
LAD: Large size vessel giving rise to 1 significant diagonal. There is no coronary artery disease.
Ramus: Medium to large size vessel supplying the majority of the lateral wall. There is no coronary artery disease.
Circumflex: Diminutive vessel tracing the AV groove. There is no coronary artery disease.
RCA: Large size, dominant vessel with a large posterolateral arcade serving as the circumflex artery. There is no coronary artery disease.
INTERVENTIONS
None.
Closure Device: Manual pressure for the right common femoral artery and the right antecubital vein.
Radiation dose (mGy): 252.11
DAP (cm2.Gy): 19.8616
Fluoroscopy time (minutes): 3.8
Sedation time (minutes): 16
CONCLUSIONS:
1. Right dominant circulation with a diminutive circumflex and a posterolateral arcade of the RCA perfusing the circumflex territory with no coronary artery disease.
2. Severe arterial tortuosity throughout, prohibiting radial artery access and requiring a long sheath for femoral artery catheter placement.
3. High bifurcation of the right common femoral artery.
4. Severe systemic hypertension.
5. Severe aortic valve stenosis by echocardiography (mean gradient 52 mmHg).
6. Normal filling pressures (PCWP = 13 mmHg at 77.1 kg).
7. Preserved cardiac function (cardiac index equals 2.54 L/min/m�).
RECOMMENDATIONS:
1. Expectant management after cardiac catheterization via right common femoral and right antecubital approach.
2. Limited weight bearing for one week.
3. Continue TAVR evaluation.
4. We will start nicardipine drip to allow for manual compression of the right common femoral artery and discontinue once we are satisfied with femoral artery hemostasis.
Copy to: Francisco Vega M.D., Marleny Vasquez DShira.
Josh Lai, DO, FACC, FACP
[2024-09-06] MEDS: CARDENE 12.5 IV (13:31)
[2024-09-06] MEDS: NSS 1000 IV (13:34)
== END | disposition home or self-care (01) ==
LOC: CATH 09:58
PROVIDERS: ATTENDING PHYSICIAN Internal Medicine Cardiovascular Disease; FAMILY PHYSICIAN Hospitalist; OTHER PHYSICIAN Internal Medicine Cardiovascular Disease
DX: I08.3 Combined rheumatic disorders of mitral, aortic and tricuspid valves (principal); I12.9 Hypertensive chronic kidney disease with stage 1 through stage 4 chronic kidney disease, or unspecified chronic kidney disease; N18.31 Chronic kidney disease, stage 3a; E11.22 Type 2 diabetes mellitus with diabetic chronic kidney disease; E78.00 Pure hypercholesterolemia, unspecified; I27.20 Pulmonary hypertension, unspecified; Z85.51 Personal history of malignant neoplasm of bladder; Z79.01 Long term (current) use of anticoagulants
CPT/HCPCS: 93456; C1894; Q9967

== ENCOUNTER → 2024-09-20 09:24 | Outpatient (REF) | payer OTHER, SELFPAY | LOC: RAD 09:24 | PROVIDERS: ATTENDING PHYSICIAN Nurse Practitioner Acute Care; FAMILY PHYSICIAN Hospitalist | DX: I35.0 Nonrheumatic aortic (valve) stenosis (principal) | CPT/HCPCS: 74174; 75572; Q9967 ==

== ENCOUNTER 2024-10-19 07:29 | Inpatient (IN) | payer OTHER, SELFPAY ==
[2024-10-11 08:40] VITALS: BMI 31.4
[2024-10-11 09:34] LABS: % Immature Granulocytes 0.2 % (0-0.5); % Lymphocytes 19.1 % (20.5-51.1); % Monocytes 10.4 % (1.7-9.3); % Neutrophils 67.3 % (42.2-75.2); Absolute Basophils 0.1 10^3/uL (0-0.2); Absolute Eosinophils 0.1 10^3/uL (0-0.7); Absolute Lymphocytes 0.9 10^3/uL (1.2-3.4); Absolute Monocytes 0.5 10^3/uL (0.1-0.6); Absolute Neutrophils 3.3 10^3/uL (1.4-6.5); Hematocrit 37.1 % (37.0-47.0); Hemoglobin 12.4 g/dL (12.0-16.0); Mean Corp Hgb Conc. 33.4 g/dL (33.0-37.0); Mean Corpuscular Hgb 31.3 pg (27.0-31.0); Mean Corpuscular Volume 93.7 fL (81.0-99.0); Mean Platelet Volume 10.7 fL (7.4-10.4); Nucleated Red Blood Cells % 0 %; Platelet Count 216 10^3/uL (130-400); Red Blood Cell Count 3.96 10^6/uL (4.20-5.40); Red Cell Dist. Width 15.1 % (11.5-14.5); White Blood Cell Count 4.9 10^3/uL (4.8-10.8)
[2024-10-11 09:34] LABS: Urine Albumin Negative (Neg - Trace); Urine Bilirubin Negative (Negative); Urine Character Clear (Clear); Urine Color Yellow; Urine Glucose Negative (Negative); Urine Ketone Negative (Negative); Urine Leukocyte Trace (Negative); Urine Nitrite Negative (Negative); Urine Occult Blood Trace (Negative); Urine Urobilinogen Negative (Neg - 1+)
[2024-10-11 09:54] LABS: INR 1.53; NT-proBNP 1330 pg/ml; PT 18.9 Sec (11.4-14.6)
[2024-10-11 10:02] LABS: Glycohemoglobin (HgbA1c) 5.3 % (4.0-5.6)
[2024-10-11 10:29] LABS: Urine Bacteria Few (Negative); Urine White Cell 0-2 /HPF (0-5)
--- NOTE | 2024-10-11 11:01 | CM ---
Met with Mrs. [facility] and her daughter in [facility]. She states prior to admission she resides with her spouse at [facility]. She states she has been there a year. She states prior to admission she uses a wheelchair for mobility. She
states she is able to transfer from the wheelchair to a chair independently. She states she shoemaker need assistance with bathing and putting on her compression stockings. She states she has a wheelcahir at the facility. She states she has a
prescription plan. The discharge plan is to go back to [facility] when medically stable.
We reviewed pre-op and post-op routines. We reviewed the shower instructions. She has the soap and the shower instructions. She already has the TAVR Educational Booklet. We reviewed restrictions including lifting and driving restrictions. Will
need to confir with the Transitional Care Nurse if they will go to [facility]. The plan is for TAVR on October.
[2024-10-11 11:19] LABS: ALT (SGPT) 15 U/L (0-35); AST (SGOT) 23 U/L (14-36); Albumin 4.1 g/dl (3.5-5.0); Alkaline Phosphatase 90 U/L (38-126); Blood Urea Nitrogen 18 mg/dl (7-17); Carbon Dioxide 29 mmol/L (22-30); Chloride 105 mmol/L (98-107); Direct Bilirubin 0.3 mg/dl (0.0-0.4); Estimated Creatinine Clearance 40 ml/min; Glucose 97 mg/dl (70-99); Sodium 143 mmol/L (135-145); Total Bilirubin 0.8 mg/dl (0.2-1.3); Total Protein 6.5 g/dl (6.3-8.2); eGFR > 60.00
[2024-10-19] VITALS (23 sets, daily range): BP systolic 117–201; BP diastolic 45–75; BMI 32.5
[2024-10-19 08:08] LABS: Glucose - Point of Care 124 mg/dl (70-99)
--- NOTE | 2024-10-19 08:19 | CM ---
Reviewed chart. Mrs. [facility] is in the operating room today. Prior to admission she resides with her spouse in an assisted Living- [facility]. She has been there a year. Prior to admission she was wheelchair level for mobility, She can
transfer self from wheelchair to chair. She needs some assistance with ADL's, bathing and putting on her compression stockings. She has a wheelchair at the facility. She also has a prescription plan. Medical work-up in progress. The discharge plan
is to return back to [facility] with her spouse when medically stable.
[2024-10-19] MEDS: ANCEF 10 IV (08:59)
[2024-10-19 10:07] LABS: ACT-LR - POC 276 Seconds (116-155)
[2024-10-19] MEDS: THERAGRAN PO (10:17)
--- NOTE | 2024-10-19 10:25 | W.CVOR.SURPR ---
CVOR Surgeon Immed Pre Op
-
I have examined this patient prior to performance of the scheduled procedure.
The patient's condition is unchanged from the time of the dictated/written History and
Physical and the patient is able to undergo the scheduled procedure.
--- NOTE | 2024-10-19 10:25 | W.IMMPOSTOP ---
Addendum entered and electronically signed by Griffin Maravilla MD 10/19/24 10:50:
[id number]
Original Note:
Surgical Immed Post Op Note
-
STRUCTURAL HEART PROCEDURE NOTE: TAVR
Preoperative Dx:
Severe aortic stenosis (P/M: 92/52, DOE 0.84)
Malignant melanoma
HTN
HCH
T2DM
Bladder CA
CKD Stage 3
Postoperative Dx:
Same
Procedures:
1) L SENIOR SOLUTIONS ENGINEER access w/ tactile, U/S, and fluoroscopic guidance, limited angiography, 8Fr dilator placement
2) Perclose placement x 2 into L SENIOR SOLUTIONS ENGINEER, 8Fr sheath placement
3) R SFA access w/ tactile, U/S, and fluoroscopic guidance, limited angiography, 6Fr sheath placement
4) R CFV access w/ U/S and fluoroscopic guidance, 6Fr sheath placement
5) Placement of temporary RV pacing wire, threshold testing
6) Placement of pigtail catheter in RCC w/ limited angiography and confirmation of co-planar valve deployment views
7) Serial dilation of L ileofemoral system w/ placement of Ojeda E-sheath
8) Wire purchase across stenotic AV (AL-1, soft-tip straight, LVEDP assessment, extra-stiff)
9) Inspection of TAVR valve
10) L TF TAVR w/ placement of 23mm JHONY 3 valve
11) Completion aortography
12) Completion TTE (mean gradient 5mmHg, trace PVL)
13) Removal of valve delivery system and Ojeda E-sheath w/ L SENIOR SOLUTIONS ENGINEER mgmt w/ perclose sutures x 2, manual pressure
14) Completion L ileofemoral angiography
15) Removal of temporary pacing wire
16) Removal of R SFA 6Fr sheath w/ mgmt w/ 6Fr angioseal; manual pressure
17) Removal of R CFV 6Fr sheath w/ mgmt w/ manual pressure
Frame Repairer:
Dr. Josh Lai
Cardiac Surgeon:
Dr. Griffin Maravilla
Anesthesia:
MAC & local to B/L groins
Complications:
None
Implants:
Ojeda [employer], 23mm JHONY 3; SN [id number]
Perclose x 2 into L SENIOR SOLUTIONS ENGINEER
6Fr angioseal x 1 into R SFA
Cath Data:
Start: 0937, Deploy: 1007hrs, End: 1020hrs
FT: 6.1min, mGy: 302.88, DAP 31.8752, Contrast: 92mL
Post-TTE: mean gradient 5mmHg, trace PVL
Condition:
Stable/guarded to recovery
--- NOTE | 2024-10-19 10:45 | ITS.CL.TAVR ---
Pathologist Assistant - TAVR Report
TAVR PRocedure
Procedure Report:
TRANSCATHETER AORTIC VALVE REPLACEMENT REPORT
Date: 10/19/2024
Referring physician: Francisco Vega M.D.
Preop diagnosis: Severe aortic valve stenosis.
Postop diagnosis: Severe aortic valve stenosis.
Procedure: Transcatheter aortic valve replacement (TAVR) using a # 23 Ojeda DANTE S3 Ultra.
Operators: Josh Lai DO, Matthew Thomas, M.D.
Findings: Severely calcified and stenotic aortic valve.
Anesthesia: Conscious sedation was provided by the anesthesia staff.
Estimated blood loss: Negligible.
Complications: None.
Condition: Stable
Procedure:
The patient was brought to the cardiac labor crew supervisor after consent and was prepped and draped in standard sterile fashion. Conscious sedation was provided by the anesthesia staff. After a 'Time Out,' bilateral common femoral arteries and the right
femoral common vein were access using a modified Seldinger technique with a micropuncture kit under ultrasound guidance. A 6 Ugandan sheath was placed in the right femoral vein. Angiography performed through the micropuncture sheath confirmed
satisfactory arterial placement in the right common femoral artery. The micropuncture sheath was replaced with a 6Fr sheath in the right MOLD FILLING OPERATOR. Angiography through the micropuncture kit confirmed satisfactory arterial placement in the left common
femoral artery. The left MOLD FILLING OPERATOR was dilated with an 8FR dilator and preclosed with two Perc-Close devices. An 8Fr sheath was placed in the LCFA. A temporary pacing wire was advanced through the right femoral vein and into the right ventricle. The
pacemaker demonstrated good capture and was set to back up. A 5Fr pigtail catheter was advanced through the right femoral sheath and seated in the right coronary cusp. Angiography confirmed co-planar angles.
An AL-1 catheter was advanced through the 8Fr sheath, the J wire was exchanged for an Amplatz Superstiff wire and the catheter and the 8 Fr sheath was removed. A 14 Fr dilator was advanced over the Superstiff wire to the descending aorta. The
dilator was removed and the 14 Fr Ojeda E-sheath was inserted over the wire and into the descending aorta. Heparin 6500 units was given. The DANTE S3 was prepared on the back table. Orientation was confirmed by both physicians. The AL-1
catheter was re-advanced through the E-sheath to the level of the ascending aorta. The Superstiff wire was removed and a soft tip straight wire was advaned through the AL-1. The straight tip wire was used to cross the aortic valve and the catheter
was advanced into the left ventricle. The straight wire was removed and an Amplatz Extrastiff wire with curved proximal end was advanced through the catheter and into the left ventricle. The wire was seated in the apex and the catheter was
removed. ACT was checked and confirmed to be > 250 seconds.
The valve was advanced over the Extrastiff wire and into the descending aorta. The balloon was withdrawn and the valve was mounted on the balloon. The valve was advanced over the aortic arch and into the aortic valve annulus. The pusher device
was withdrawn to allow for balloon expansion. Low volume aortography confirmed good position of the valve. The valve was deployed during rapid ventricular pacing. Echocardiography and aortography confirmed a good result with trace aortic valve
insufficiency and a 5 mm mean gradient. The valve deployment system was removed. The Ojeda E sheath was then removed and hemostasis obtained with the two perclose sutures. Final angiography demonstrated no evidence of ileofemoral
dissection/perforation and good runoff below the common femoral artery. The patient had notable sinus bradycardia but no immediate need for pacemaker when the pacing rate was decreased to 30 bpm. QRS complex was narrow. The decision was to
disconnect and remove the pacemaker with careful telemetry monitoring. The pacemaker and the pigtail catheter were removed. The right femoral artery sheath was removed using a 6Fr angioseal. The right femoral venous sheath was removed and manual
pressure was applied. with excellent hemostasis.
Radiation
Dose (mGy): 302.88
DAP (cm2.Gy): 31.8752
Fluoroscopy time (minutes): 6.1
TAVR Echo Gradient (mmHg): 5
LV (s/x, mmHg): 153/21
TAVR Cath Gradient (mmHg): Not obtained.
Conclusions:
1. Successful placement of # 23 Dante S3 Ultra aortic valve via right transfemoral approach with no acute complications.
2. 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
Josh Lai, DO, FACC, FACP
Copy to: Francisco Vega M.D., Marleny Vasquez D.O.
--- NOTE | 2024-10-19 10:57 | W.PN.UPDATE ---
Update Note
Progress Note Update
Reviewed Ms. Ivy with the heart team in the SDM meeting and confirmed a 23 mm S3 via (L) transfemoral access. She will resume Eliquis post TAVR. LVEDP 22 mmHg. #23 S3 (Serial# [id number]) successfully implanted via (L) TF access. Post implant MG
5mmHg.
[2024-10-19 11:30] LABS: Glucose - Point of Care 113 mg/dl (70-99)
[2024-10-19] MEDS: ANCEF IV (11:42)
--- NOTE | 2024-10-19 13:11 | PTCARENOTE ---
Rec'd pt from [facility]. AOX3. Drowsy but arousable to verbal stimuli. Neuro exam completed w/ [facility] RN [place]. R pupil 1mm and L pupil 3mm at baseline otherwise neuro WNL. Tele- SB 40s. Pt sating at 97% on 2L O2 NC. R groin is c/d/i. L groin w/
sm. amt blood noted on dsg. Activity restrictions reviewed w/ pt. Verbalizes understanding. Daughter at bedside. Call dayanara w/in reach.
[2024-10-19] MEDS: LIPITOR 10 MG PO (17:11)
[2024-10-19] MEDS: ANCEF 5 IV (17:12)
[2024-10-19] MEDS: OSCAL 500 + D 1000 MG PO (19:45)
--- NOTE | 2024-10-20 00:38 | PTCARENOTE ---
Patient alert to self, place, and time; Pupils remain unequal, left 4mm and right 2mm, both reactive to light; Per patient history of cataract surgery; Patient denies pain, nausea, and vomiting; Right groin gauze with tegaderm clean/dry/intact, soft
to palpation, no ecchymosis or hematoma noted; Left groin gauze with tegaderm with small amount of drainage that has been marked, site otherwise soft to palpation, no ecchymosis, no hematoma noted; Call nichole within reach; Plan of care ongoing
[2024-10-20 02:49] VITALS: BP 143/58
[2024-10-20 02:52] VITALS: BMI 32.2
--- NOTE | 2024-10-20 03:17 | PTCARENOTE ---
Patient oxygen saturation noted to be dropping to mid eighties then back up to low nineties; Patient found to be asleep, mouth breathing; 2L NC applied with oxygen saturation back up to mid to high nineties while patient is asleep
[2024-10-20 03:27] LABS: Hematocrit 30.5 % (37.0-47.0); Hemoglobin 10.4 g/dL (12.0-16.0); Mean Corp Hgb Conc. 34.1 g/dL (33.0-37.0); Mean Corpuscular Hgb 30.6 pg (27.0-31.0); Mean Corpuscular Volume 89.7 fL (81.0-99.0); Mean Platelet Volume 10.4 fL (7.4-10.4); Platelet Count 151 10^3/uL (130-400); Red Cell Dist. Width 14.6 % (11.5-14.5); White Blood Cell Count 6.5 10^3/uL (4.8-10.8)
[2024-10-20 03:38] LABS: Blood Urea Nitrogen 20 mg/dl (7-17); Calcium 8.3 mg/dl (8.4-10.2); Carbon Dioxide 30 mmol/L (22-30); Chloride 106 mmol/L (98-107); Estimated Creatinine Clearance 46 ml/min; Glucose 104 mg/dl (70-99); Potassium 3.7 mmol/L (3.5-5.1); Sodium 141 mmol/L (135-145); eGFR > 60.00
--- NOTE | 2024-10-20 05:59 | W.PN.CT ---
Addendum entered and electronically signed by Eun Montaño PA-C 10/23/24 12:21:
additional diagnosis:
postop atelectasis
Original Note:
Today's Communication / Plan
-
-pod #1
-no issues overnight
-sinus cortez high 40s-50s (similar to preop 50s). No significant pauses overnight. Not on BB or Ca blockers preop
-pre-existing LAFB, new transient postop 1st degree AVB (resolved)
-Echo
-current meds (Amio and Eliquis for paf, Lipitor, Lasix 20 MWF, Zestril bid, Zoloft)
-encourage IS, ambulate
Assessment / Plan
-
- Severe symptomatic - s/p L TF TAVR w/ placement of 23mm JHONY 3 valve on 10/19/24, pod #1
- Post-TTE: mean gradient 5mmHg, trace PVL
- Malignant melanoma
- HTN
- HLD
- T2DM
- Bladder CA
- Hx CKD Stage 3
- Paroxysmal a-fib - on Eliquis and Amio at home
- Pre-existing sinus bradycardia low 50s/ LAFB
Discussed patient care with: Nursing and Care Team
Subjective
Procedure
- s/p L TF TAVR w/ placement of 23mm JHONY 3 valve on 10/19/24
-
Date of Service: October 19, 2024
Objective Data
-
Lab Results
10/11/24 08:57
10/11/24 08:57
PT 18.9 Sec (11.4-14.6) H 10/11/24 08:57
INR 1.53 10/11/24 08:57
APTT 34.0 Sec (23.4-35.0) 10/11/24 08:57
Vital Signs
Vital Signs
Temp Pulse Resp BP Pulse Ox
98.9 F 53 14 143/51 96
10/19/24 22:16 10/19/24 22:16 10/19/24 22:16 10/19/24 22:16 10/19/24 22:20
CT Intake/Output/Weight
10/19/24 10/19/24 10/20/24
06:59 18:59 06:59
Intake Total 1700 / 1700
Output Total 600 / 600
Balance 1100 / 1100
SaO2: 96
Physical Exam
-
General: Awake (hard of hearing) and AOx3
Cardiovascular: Regular rate & rhythm and Murmur (1/6 hsm @ L mid-clav)
Respiratory: Clear and Decreased Breath Sounds
Incision: Other (groins are cdi, soft, nontender, no hematoma b/l)
Extremities: Edema +1 (DPs by Doppler)
Abdomen: soft, nontender, nondistended, + bowel sounds
Data Reviewed
-
Lab Results: Results Reviewed
Medications: Active Meds Reviewed
Chest X-Ray: Report Reviewed and Image Reviewed
ECG: Report Reviewed and Image Reviewed
--- NOTE | 2024-10-20 07:50 | W.PN.ANS.POP ---
Anesthesia Post Operative
- Anesthesia Post Op Note
Vital Signs Stable-See Nursing Note: Yes
Airway Patent: Yes
Adequate Pain Control: Yes
Change in Mental Status: No
Current Postoperative Nausea & Vomiting: No
Anesthesia Complications: No
General Anesthetic Recall: No
Unplanned Admission: No
Post Op Hydration Adequate: Yes
[2024-10-20] MEDS: OSCAL 500 + D 1000 MG PO (07:53)
[2024-10-20] MEDS: VITAMIN C 500 MG PO (07:53)
[2024-10-20 07:55] VITALS: BP 174/48
[2024-10-20 07:57] VITALS: BP 160/58
[2024-10-20] MEDS: ZOLOFT 25 MG PO (07:57)
[2024-10-20] MEDS: ELIQUIS 5 MG PO (07:57)
[2024-10-20] MEDS: LASIX 20 MG IV (07:57)
[2024-10-20] MEDS: THERAGRAN 1 TABLET PO (07:57)
[2024-10-20] MEDS: ZESTRIL 5 MG PO (07:58)
--- NOTE | 2024-10-20 08:12 | W.PN.CD ---
Addendum entered and electronically signed by Josh Lai DO 10/20/24 09:41:
Preliminary evaluation of echocardiogram by the space technologist reveals mild to moderate paravalvular leak with a mean gradient of 19 mmHg across the TAVR valve. Formal read is pending.
The patient is asymptomatic.
Differential diagnosis includes underexpansion with valve constraint versus hyperacute leaflet thrombosis.
Leaflet thrombosis will be empirically treated with home apixaban 5 mg twice daily for atrial flutter.
We will repeat her echocardiogram in 30 days and obtain repeat TAVR CT to evaluate for HALT.
If PVL remains > mild and there is no HALT, we will consider balloon valvuloplasty to improve expansion.
Remains stable for discharge.
Original Note:
Today's Communication / Plan
-
Echocardiogram pending.
Hold amiodarone. Decrease to 100 mg daily on discharge.
Repeat CBC around 12 PM.
If H/H drops, check CT abdomen/pelvis with contrast.
Discharge planning.
Impression / Plan
-
Impression/Plan: 89 y/o female with paroxysmal atrial flutter, HTN, HLD, NIDDM and severe aortic valve stenosis admitted for elective TAVR.
#Severe aortic valve stenosis
-Chronic.
-S/P #23 Ojeda DANTE S3 Ultra TAVR via left common femoral approach.
-Access site is C/D/I.
-Telemetry shows sinus bradycardia (previously seen - 09/2024). Prior EKGs from 2022 shows AF with RVR, NSR (not bradycardia).
-Hbg 10.4 this morning. Repeat around noon. If continuing to drop, would check CT abdomen/pelvis with contrast to r/o RPB - no clinical evidence at this time.
-Echocardiogram this morning.
-Discharge planning.
#Paroxysmal atrial flutter
-Chronic, currently in sinus bradycardia.
-Hold amiodarone over this hospitalization (long half life) and restart at 100 mg daily on discharge.
-CHADS2-Vasc = 5 (HTN, Age x2, DM, Female).
-Restart apixaban 5 mg BID.
#HTN
-Chronic, stable.
-Resume home medications.
#HLD
-Chronic, stable.
-Continue atorvastatin 10 mg daily.
#Dispo
-IVU status.
-Full code.
-Discharge planning.
Subjective/Interval History:
TAVR yesterday.
Nursing documented hypoxia overnight while sleeping. She may have undiagnosed RANULFO.
DATA:
TAVR, 10/19/2024:
Conclusions:
1. Successful placement of # 23 Dante S3 Ultra aortic valve via left transfemoral approach with no acute complications.
2. 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
Physical Exam
Vital Signs/Labs
Vital Signs
Temp Pulse Resp BP Pulse Ox
37.1 C 57 14 160/58 95
10/20/24 02:50 10/20/24 07:58 10/20/24 02:50 10/20/24 07:58 10/20/24 02:50
10/18/24 10/19/24 10/20/24
11:59 11:59 11:59
Actual Weight 78.1 kg 77.3 kg
10/20/24 03:11
10/20/24 03:11
PT 18.9 Sec (11.4-14.6) H 10/11/24 08:57
INR 1.53 10/11/24 08:57
APTT 34.0 Sec (23.4-35.0) 10/11/24 08:57
10/11/24
08:57
Etd-Q-Qqronazphve Pept 1330
Physical Exam
Constitutional: No acute distress and Comfortable
EENT: Anicteric and Moist mucous membranes
Cardiovascular: Rhythm & rate is regular, Pedal edema is absent, JVD pressure is normal, S1S2 is normal and Murmur/rub/gallop absent
Respiratory: Respiratory effort normal, Lungs clear to auscul., Wheeze Absent, Crackles Absent and Rhonchi Absent
GI: Soft, Distention absent, Flat, Non tender and Normal bowel sounds
Neuro/Psych: AO x 3
Other: Cath Site (Bilateral femoral access sites are C/D/I.)
Data Reviewed
-
Date of Service: October 20, 2024
Medical Decision Making: Reviewed Test Results, Independent Historian Assessment and Test Interpretation
EKG: Tracing Personally Visualized and interpreted and Report Reviewed by me
Echo: Tracing Personally Visualized and interpreted and Report Reviewed by me
X-Ray/CT/US/MRI/NUC/PET: Image Personally Visualized and interpreted and Report Reviewed by me
Medical Tests (PFT, Pathology etc): Image Personally Visualized and interpreted and Report Reviewed by me
Labs: Labs Reviewed by me
Old Records: Reviewed
--- NOTE | 2024-10-20 08:22 | W.DCSUMMARY ---
Discharge Summary
Discharge Data
Date of Admission: 10/19/24
Date of Discharge: 10/20/24
-
Pending Results: No
Hospital Course
Primary care physician: Marleny Vasquez
Outpatient yard spotter: Gary
Inpatient consultants: DANIEL
Procedures:
1. Left transfemoral TAVR #23mm Ojeda S3
Primary Diagnosis:
1. severe aortic stenosis
Secondary Diagnoses:
1. Hypertension
2. Hyperlipidemia
3. Non insulin dependent diabetes mellitus
4. hx bladder cancer
5. chronic kidney disease stage 3a
6. hx melanoma
7. hx afib/flutter, on eliquis
8. hx tonsillectomy
HPI: Pt is an 89y/oF with PMH as above who presented as an outpatient with complaints of fatigue who was noted to have severe aortic stenosis with preserved EF. After all preoperative workup was completed she was deemed a suitable candidate to
undergo TAVR.
Hospital course: Pt was brought in electively on 10/19/24 where she underwent an uncomplicated transfemoral TAVR by Drs. Griffin Maravilla & Lorenzo Lai. She was transferred to recovery in stable condition. Post procedure EKG demonstrated sinus
bradycardia with new first degree AV block. She remained hemodynamically stable overnight. On postop day #1 first degree AVB has resovled, her heartrate remains bradycardic but now at baseline mid 50s. Amiodarone to be resumed at lower dose of 100mg
daily. groins are soft without hematoma. Hgb dropped to 10.4 from 12.4 in preadmission testing-->repeat midday 11.0. Follow up echo completed which demonstrates mean gradient of 19mmHg with mild to moderate perivalvular leak. Discharged to home with
close follow up with the transitional care nurse from . She will have an echo scheduled for 30 days to reassess MG & perivalvular leak as well as a repeat CT TAVR at that time to assess for HALT.
Home medication changes: pt instructed to stop aspirin bridge. amiodarone decreased from 200mg daily to 100mg daily for bradycardia.
Discharge Plan
-
Patient Disposition: Home (Routine Discharge)
Discharge Diagnosis/Procedures: TF TAVR
Condition: Good
Diet: Low Fat, Low Cholesterol and 2 Gram Sodium
Activity: As tolerated
Driving Restrictions: No driving for 1 week
Bathing Restrictions: OK to Shower
Others Tests: 30 Day Follow Up Echocardiogram 11/21/2024 @ 3:00 at [facility]
Other Services: Cardiac Rehab
Wound Care: Please do not apply lotions, creams or powders to groin areas. Please monitor for increased redness, pain, swelling or drainage. Notify your doctor if any occur.
Specialty Instructions: Weigh Daily- Call MD for wt gain/loss 3 lbs overnight/5 lbs in 1 week
Referrals:
[facility], [facility] [Other]
CT Transitional Care Nurse [Outside]
(
The Cardiothoracic Transitional Care Nurse will call you to set up a visit in 1-2 days.)
Marleny Vasquez, [Primary Care Provider] - in four to six weeks (Please make an appointment in four to six weeks. )
Aimee Sandy CRNP [Specified Professional Personl] - 11/29/24 1:40 pm
Prescriptions:
New
acetaminophen 325 mg Tablet
650 mg PO Q6HPRN PRN (Reason: HIRSCH, mild pain, or fever >101F) Qty: 0 0RF
amiodarone 100 mg tablet
100 mg PO DAILY Qty: 30 1RF
Continued
ascorbic acid (vitamin C) [Vitamin C] 500 mg Tablet
500 mg PO DAILY
atorvastatin 10 mg Tablet
10 mg PO QPM 30 Days Qty: 0 0RF
Eliquis 5 mg Tablet
5 mg PO BID Qty: 60 0RF
lisinopril 5 mg Tablet
5 mg PO BID
furosemide 20 mg Tablet
20 mg PO .3 DAYS/WEEK
cyanocobalamin (vitamin B-12) [Vitamin B-12] 1,000 mcg Tablet
1,000 mcg PO MO
sertraline 25 mg Tablet
25 mg PO DAILY
calcium citrate-vitamin D3 [Citracal-D3 Petites] 200 mg-6.25 mcg (250 unit) Tablet
2 tab PO BID
senna 8.6 mg Capsule
8.6 mg PO DAILY PRN (Reason: constipation)
Discontinued
amiodarone 200 mg Tablet
200 mg PO DAILY
aspirin [Aspir-Low] 81 mg Tablet,Delayed Release (Dr/Ec)
81 mg PO DAILY
aspirin 81 mg Tablet,Chewable
324 mg PO ONCE
Discharge Orders:
Discharge Patient (As Directed); Ordered 10/20/24
Ordered By: Kristin Nazario
Care Plan Goals
Care Plan Goals:
Problem: Readiness for enhanced knowledge related to diagnosis and treatment plan
Goal: Understand your diagnosis and treatment plan needs, including medications if applicable.
Instructions: Know your diagnosis, underlying causes and treatment plan options, including medications if applicable. Consult with your health care team to learn about your diagnosis and treatment plan, including medications if applicable.
Discharge Date and Time
Print Language: KISWAHILI
[2024-10-20] MEDS: PACERONE 200 MG PO (08:25)
[2024-10-20 11:36] VITALS: BP 127/49
--- NOTE | 2024-10-20 12:01 | CM ---
Addendum entered by JAKOB Guzman 10/20/24 14:25:
Spoke w/ Jaspreet @ [facility], .
Informed that patient is medically stable to return. She notes that RN should call above # and ask for Jaspreet.
DC instructions to be sent to: [phone].
PLAN: [facility] return w/ visit from CT Transitional Care RN (I confirmed w/ Jaspreet that CT RN can visit there next wk).
Pt. shares that her dtr. will be transporting back.
Original Note:
CM following for DC planning needs.
Attempted to meet w/ patient at bedside but patient was sleeping soundly. Will re-attempt.
Pt. comes from [facility].
Call to [place] to inquire about how to coordinate return admission, await call back.
[2024-10-20 12:21] LABS: Hematocrit 33.8 % (37.0-47.0); Mean Corp Hgb Conc. 32.5 g/dL (33.0-37.0); Mean Corpuscular Hgb 29.7 pg (27.0-31.0); Mean Corpuscular Volume 91.4 fL (81.0-99.0); Platelet Count 189 10^3/uL (130-400); Red Cell Dist. Width 14.7 % (11.5-14.5); White Blood Cell Count 7.4 10^3/uL (4.8-10.8)
[2024-10-20 15:20] VITALS: BP 128/47
--- NOTE | 2024-10-20 15:25 | PTCARENOTE ---
pt has been sb all day today. pt offers no complaints at this time. bilateral groins cdi. pt educated on plan of care and pt verbalized understanding. call nichole within reach.
--- NOTE | 2024-10-20 15:40 | PTCARENOTE ---
report called to [facility]. pt updated. daughter updated. call nichole within reach.
--- NOTE | 2024-10-20 16:59 | PTCARENOTE ---
d/c instructions read to pt and pts . pt verbalized understanding of care plan. iv and tele removed. pt left via wheelchair with staff member. daughter will take pt to [facility], report called.
--- NOTE | 2024-10-23 11:55 | PN.CDI ---
CDI
- -
CDI:
Physician Documentation Request
Admit Date: 10/19/24 07:29
Dear Doctor Taiwo/ YURY,
Please review the following and provide your response in the progress notes.
Clinical Indicators:
The diagnosis of Atelectasis was included in the signed CXR 10/20
Additional clinical indicators in the chart include:
Pt admitted with Aortic Stenosis s/p TAVR on 10/19
CT surgery note 10/20 , ' encourage IS, ambulate....'
Please indicate in your progress notes if you are in agreement that the above diagnosis is valid for this patient:
____ - Atelectasis is a valid diagnosis (Please include it in your progress notes)
____ - Atelectasis is not a valid diagnosis for this patient
____ - Other
Use of terms such as suspected, likely, concern for, or probable are acceptable for a diagnosis that is being evaluated, monitored or treated as if it exists and can be coded in the inpatient setting, when documented at the time of discharge.
Thank you,
[place] RN
CDI Specialist
Randolph Text
Please use your independent medical judgment in providing your response.
== END 2024-10-20 17:02 | disposition home or self-care (01) | DRG 267 ==
LOC: IVU 07:29
PROVIDERS: Nurse Practitioner; Physician Assistant Medical; ADMITTING PHYSICIAN Thoracic Surgery (Cardiothoracic Vascular Surgery); CONSULT PHYSICIAN Internal Medicine Cardiovascular Disease; PRIMARYCARE PHYSICIAN Hospitalist; REFERRING PHYSICIAN Internal Medicine Cardiovascular Disease
PROC: 02RF38Z Replacement of Aortic Valve with Zooplastic Tissue, Percutaneous Approach (ICD-10-PCS; 2024-10-19)
DX: I35.0 Nonrheumatic aortic (valve) stenosis (principal); I48.92 Unspecified atrial flutter; N18.31 Chronic kidney disease, stage 3a; I12.9 Hypertensive chronic kidney disease with stage 1 through stage 4 chronic kidney disease, or unspecified chronic kidney disease; E78.00 Pure hypercholesterolemia, unspecified; E11.22 Type 2 diabetes mellitus with diabetic chronic kidney disease; I44.0 Atrioventricular block, first degree; R00.1 Bradycardia, unspecified; I48.0 Paroxysmal atrial fibrillation; I44.4 Left anterior fascicular block; Z79.01 Long term (current) use of anticoagulants; Z79.84 Long term (current) use of oral hypoglycemic drugs; Z79.899 Other long term (current) drug therapy; Z85.51 Personal history of malignant neoplasm of bladder; Z85.820 Personal history of malignant melanoma of skin
CPT/HCPCS: 93308; 33361; 36415; 71045; 71046; 80048; 80053; 81003; 81015; 82248; 82962; 83036; 83880; 85025; 85027; 85347; 85610; 85730; 86850; 86900; 86901; 86920; 87070; 93005; 93306; 93321; 93325; C1760; C1769; C1894; Q9967

== ENCOUNTER → 2024-11-21 14:49 | Outpatient (REF) | payer OTHER, SELFPAY | LOC: RCS 14:49 | PROVIDERS: ATTENDING PHYSICIAN Internal Medicine Cardiovascular Disease; FAMILY PHYSICIAN Hospitalist | DX: I10 Essential (primary) hypertension (principal); I48.3 Typical atrial flutter; Z95.2 Presence of prosthetic heart valve; I35.0 Nonrheumatic aortic (valve) stenosis; I21.4 Non-ST elevation (NSTEMI) myocardial infarction | CPT/HCPCS: 93306 ==

== ENCOUNTER 2024-11-22 13:53 | Emergency (ER) | payer OTHER, SELFPAY ==
[2024-11-22 14:02] VITALS: BP 158/55
--- NOTE | 2024-11-22 16:05 | ED.GENMED ---
History of Present Illness
General
Chief Complaint: Nose Bleed
Source: patient
Exam Limitations: none
Time Seen by Provider: 11/22/24 15:34
History of Present Illness
History of Present Illness:
See MDM
Past History
Past History
ED Past Medical History: Cancer (Skin CA), HTN, Hypercholesterolemia, NIDDM and Psychiatric (Depression)
ED Past Surgical History: Cardiac, Cholecystectomy, Gynecological (, D&E), Orthopedic (Right hip surgery), Tonsilectomy and Urological (Bladder tumors remoced)
Social History
Tobacco: Non-smoker
Alcohol: Occasional
Personal:
Living: with family
Employment: Retired
Family History
Family History: Hypertension
Phy Exam
Physical Exam
Physical Exam:
See MDM
Course
Vital Signs
Initial and Last Documented VS:
Initial Vital Signs
Temp Pulse Resp BP Pulse Ox
98.1 F 62 20 158/55 96
11/22/24 14:02 11/22/24 14:02 11/22/24 14:02 11/22/24 14:02 11/22/24 14:02
Last Documented Vital Signs
Temp Pulse Resp BP Pulse Ox
98.1 F 62 20 158/55 96
11/22/24 14:02 11/22/24 14:02 11/22/24 14:02 11/22/24 14:02 11/22/24 14:02
Procedures
Nosebleed
Drug treatment: none
Treatment: Silver nitrate cautery
Post treatment bleeding: none- good control
MDM/Problems Addressed
Differential Diagnosis Includes:
HPI and MDM Narrative:
89-year-old female presenting with right sided nosebleeding. She is on Eliquis. She did have recent TAVR. Because of this, I discussed not skipping her Eliquis. The bleeding does appear to be anterior. I had her blow her nose and a large clot
was removed. This revealed mild excoriated right nasal septum. No active bleeding. I did cauterize the area and placed a nasal clamp. After prolonged observation, no bleeding noted and patient felt comfortable going home
Physical exam
General: Well appearing and non-toxic
HEENT: protecting airway. Excoriation to right nasal septum without active bleeding. Large blood clot removed
Neck: appears supple
CV: No evidence of cyanosis
Resp: No accessory muscle use
Abd: Non-distended
Extremities: No deformities
Neuro: alert
Psych: Normal affect
Skin: Intact
Problems Addressed including Acute and Chronic Conditions affecting care:
1. Anterior epistaxis
Acuity: acute
Prognosis: stable
Details: Symptoms mostly resolved on their own. The clot was removed and the area was cauterized. All symptoms resolved
Differential Diagnosis (but not limited to): Epistaxis, nasal trauma
Testing considered: Hemoglobin testing
Drug therapy (if applicable): OTC meds, please see d/c instruction regarding Rx drugs
Amount and/or Complexity of Data Reviewed
Clinical info obtained from: Patient
External data reviewed: N/A
Labs I independently reviewed (but not limited to): N/A
Radiology: N/A
Pulse Ox: not hypoxic
EKG independently reviewed: N/A
Deck Builder: N/A
Critical Care: N/A
Risk of Complication:
Social Determinants of health: Good social support
Discussed with other providers: N/A
Escalation of Care includes Admit/Obs: After being observed in the Emergency Department, pt stable for discharge.
Occasional wrong word or 'sound a like' substitutions may have occurred due to the inherent limitations of voice recognition software. Read the chart carefully and recognize, using context, where substitutions have occurred.
*Critical Care Note
Total Time (30-74mins, 75-104mins- exclusive of procedures): Not Applicable
ED Attending Note
-
Portions of this chart may have been created with voice recognition software.� Occasional wrong word or��sound alike� substitutions may have occurred due to the inherent limitations of voice recognition software.
Discharge Plan
Departure
Patient Disposition: Home (Routine Discharge)
Date of Disposition: 11/22/24
Time of Disposition: 16:06
Patient with high blood pressure during this ER visit?: Yes
Discharge Problem:
Acute anterior epistaxis
Instructions: Nosebleeds (DC), BLOOD PRESSURE
Prescriptions:
No Action
ascorbic acid (vitamin C) [Vitamin C] 500 mg Tablet
500 mg PO DAILY
atorvastatin 10 mg Tablet
10 mg PO QPM 30 Days Qty: 0 0RF
Eliquis 5 mg Tablet
5 mg PO BID Qty: 60 0RF
lisinopril 5 mg Tablet
5 mg PO BID
furosemide 20 mg Tablet
20 mg PO .3 DAYS/WEEK
cyanocobalamin (vitamin B-12) [Vitamin B-12] 1,000 mcg Tablet
1,000 mcg PO MO
sertraline 25 mg Tablet
25 mg PO DAILY
calcium citrate-vitamin D3 [Citracal-D3 Petites] 200 mg-6.25 mcg (250 unit) Tablet
2 tab PO BID
senna 8.6 mg Capsule
8.6 mg PO DAILY PRN (Reason: constipation)
acetaminophen 325 mg Tablet
650 mg PO Q6HPRN PRN (Reason: HIRSCH, mild pain, or fever >101F) Qty: 0 0RF
amiodarone 100 mg tablet
100 mg PO DAILY Qty: 30 1RF
Referrals:
Marleny Vasquez DO [Family Provider] -
Activity Restrictions/Additional Instructions:
Please return for any worsening symptoms.
You may return at any time if you have further concerns.
Please follow up with your doctor at the first available appointment, preferably this week.
If the bleeding continues, please place the nasal clamp for 10 minutes. If it is persistent, please return.
Thank you for choosing [facility].
Interventions
Interventions:
*Risk Screen - Suicide Last Done: 11/22/24 14:02
*General Assessment Last Done: 11/22/24 14:02
*Neglect/Abuse Screening Last Done: 11/22/24 14:02
*ED COVID-19 Vaccine History Last Done: 11/22/24 14:44
ED-EENT Assessment Last Done: 11/22/24 14:44
Discharge Date and Time
Print Language: TURKISH
== END 2024-11-22 16:10 | disposition home or self-care (01) ==
LOC: EMR 13:53
PROVIDERS: EMERGENCY PHYSICIAN Student in an Organized Health Care Education/Training Program; FAMILY PHYSICIAN Hospitalist
DX: R04.0 Epistaxis (principal); I10 Essential (primary) hypertension; E11.9 Type 2 diabetes mellitus without complications; E78.00 Pure hypercholesterolemia, unspecified; F32.A Depression, unspecified; Z82.49 Family history of ischemic heart disease and other diseases of the circulatory system; Z85.828 Personal history of other malignant neoplasm of skin; Z90.49 Acquired absence of other specified parts of digestive tract
CPT/HCPCS: 99282; 30901

== ENCOUNTER → 2024-12-11 14:45 | Outpatient (REF) | payer OTHER, SELFPAY | LOC: RCS 14:45 | PROVIDERS: ATTENDING PHYSICIAN Nurse Practitioner Gerontology; FAMILY PHYSICIAN Hospitalist | DX: Z95.2 Presence of prosthetic heart valve (principal) | CPT/HCPCS: 93308; 93321; 93325 ==

== ENCOUNTER → 2024-12-18 09:26 | Outpatient (REF) | payer OTHER, SELFPAY | LOC: RAD 09:26 | PROVIDERS: ATTENDING PHYSICIAN Nurse Practitioner Acute Care | DX: I35.0 Nonrheumatic aortic (valve) stenosis (principal) | CPT/HCPCS: 75572; Q9967 ==

== ENCOUNTER → 2025-02-09 09:51 | Outpatient (REF) | payer OTHER, SELFPAY ==
[2025-02-09 11:43] LABS: ALT (SGPT) < 10 U/L (0-35); AST (SGOT) 19 U/L (14-36); Albumin 3.6 g/dl (3.5-5.0); Alkaline Phosphatase 87 U/L (38-126); Blood Urea Nitrogen 20 mg/dl (7-17); Calcium 8.9 mg/dl (8.4-10.2); Carbon Dioxide 26 mmol/L (22-30); Chloride 108 mmol/L (98-107); Glucose 102 mg/dl (70-99); HDL Cholesterol 61 mg/dl; LDL Cholesterol, Calculated 34 mg/dl; Magnesium 2.1 mg/dl (1.6-2.3); Potassium 4.2 mmol/L (3.5-5.1); Sodium 142 mmol/L (135-145); Total Bilirubin 0.8 mg/dl (0.2-1.3); Total Cholesterol 104 mg/dl (50-199); Total Protein 5.9 g/dl (6.3-8.2); Triglyceride 47 mg/dl (10-149); Very Low Density Lipoprotein 9 mg/dl (0-30); eGFR > 60.00
[2025-02-09 11:47] LABS: NT-proBNP 4970 pg/ml
[2025-02-09 12:51] LABS: Glycohemoglobin (HgbA1c) 5.4 % (4.0-5.6)
[2025-02-09 14:29] LABS: Vitamin D, 25-OH*** 51.6 ng/mL (30-80)
[2025-02-09 14:43] LABS: TSH 1.97 uIU/ml (0.47-4.68)
[2025-02-09 15:02] LABS: Vitamin B12 415 pg/ml (239-931)
== END ==
LOC: OLABSOL 09:51
PROVIDERS: ATTENDING PHYSICIAN Hospitalist
DX: D64.9 Anemia, unspecified (principal); D11.9 Benign neoplasm of major salivary gland, unspecified; E55.9 Vitamin D deficiency, unspecified; D51.9 Vitamin B12 deficiency anemia, unspecified; E78.5 Hyperlipidemia, unspecified; E03.9 Hypothyroidism, unspecified
CPT/HCPCS: 80053; 80061; 82306; 82607; 83036; 83735; 83880; 84443

== ENCOUNTER 2025-03-29 19:02 | Inpatient (IN) | payer OTHER, SELFPAY ==
[2025-03-29] VITALS (11 sets, daily range): BP systolic 115–153; BP diastolic 32–57; BMI 31.5
[2025-03-29 15:45] LABS: Hematocrit 15.5 % (37.0-47.0); Mean Corp Hgb Conc. 25.8 g/dL (33.0-37.0); Mean Corpuscular Hgb 16.4 pg (27.0-31.0); Mean Corpuscular Volume 63.5 fL (81.0-99.0); Mean Platelet Volume 10.5 fL (7.4-10.4); Platelet Count 199 10^3/uL (130-400); Red Blood Cell Count 2.44 10^6/uL (4.20-5.40); Red Cell Dist. Width 21.2 % (11.5-14.5); White Blood Cell Count 4.1 10^3/uL (4.8-10.8)
[2025-03-29 15:54] LABS: INR 1.78; PT 20.9 Sec (11.4-14.6)
[2025-03-29 15:55] LABS: ALT (SGPT) 11 U/L (0-35); APTT 33.7 Sec (23.4-35.0); AST (SGOT) 18 U/L (14-36); Albumin 3.7 g/dl (3.5-5.0); Alkaline Phosphatase 75 U/L (38-126); Blood Urea Nitrogen 27 mg/dl (7-17); Calcium 8.7 mg/dl (8.4-10.2); Carbon Dioxide 25 mmol/L (22-30); Chloride 109 mmol/L (98-107); Glucose 150 mg/dl (70-99); Potassium 4.2 mmol/L (3.5-5.1); Sodium 141 mmol/L (135-145); Total Bilirubin 0.7 mg/dl (0.2-1.3); eGFR 48.03
[2025-03-29 16:04] LABS: Troponin I 0.066 ng/ml
[2025-03-29 16:57] LABS: % Basophils 0.2 % (0-2); % Eosinophils 5.3 % (0-6); % Immature Granulocytes 0.2 % (0-0.5); % Lymphocytes 17.4 % (20.5-51.1); % Monocytes 13.8 % (1.7-9.3); % Neutrophils 63.1 % (42.2-75.2); Absolute Eosinophils 0.2 10^3/uL (0-0.7); Absolute Lymphocytes 0.7 10^3/uL (1.2-3.4); Absolute Monocytes 0.6 10^3/uL (0.1-0.6); Absolute Neutrophils 2.6 10^3/uL (1.4-6.5); Anisocytosis 1+; Hypochromasia 3+; Macrocytosis 2+; Normal RBC Morphology No; Nucleated Red Blood Cells % 0.7 %
--- NOTE | 2025-03-29 17:47 | ED.GENMED ---
History of Present Illness
General
Chief Complaint: Abnormal Lab Value
Source: patient
Exam Limitations: none
Time Seen by Provider: 03/29/25 16:45
History of Present Illness
History of Present Illness:
89-year-old female presents complaining of fatigue lightheadedness shortness of breath without chest pain. She denies dark or tarry stools. She denies abdominal pain. She is on Eliquis for history of A-fib. No other complaints at this time
Past History
Past History
ED Past Medical History: Cancer (Skin CA), HTN, Hypercholesterolemia, NIDDM and Psychiatric (Depression)
ED Past Surgical History: Cardiac, Cholecystectomy, Gynecological (, D&E), Orthopedic (Right hip surgery), Tonsilectomy and Urological (Bladder tumors remoced)
Social History
Tobacco: Non-smoker
Alcohol: Occasional
Personal:
Living: with family
Employment: Retired
Family History
Family History: Hypertension
Phy Exam
Physical Exam
Physical Exam:
General: Pale appearing female no acute respiratory distress
HEENT normocephalic atraumatic
Heart: Regular rate and rhythm
Lungs: Clear no wheeze
Abdomen is soft nontender
Rectal exam: Stool is brown heme-negative
Extremities: Pitting edema bilateral lower extremities
Course
Orders/Labs/Results
Orders:
Orders
03/29/25 15:17
EKG [Electrocardiogram (*1)] Urgent
Reason for Study: Other
Other Reason for Exam: hgb 3
EKG- Treatment ONCE
03/29/25 15:30
Type+Screen Urgent
Complete Blood Count/With Diff Urgent
Comprehensive Metabolic Panel Urgent
PTT Urgent
Prothrombin Time Urgent
03/29/25 15:31
Troponin I Urgent
03/29/25 17:25
Blood Bank Products [* Blood Bank Products] Urgent
Blood Bank Products: *Packed RBC Leuko(PRBC's)
Quantity: 2
Transfuse Today: Yes
Reason: Anemia
Abnormal Lab Results
03/29/25 03/29/25
15:30 15:31
WBC 4.1 L 10^3/uL
(4.8-10.8)
RBC 2.44 L 10^6/uL
(4.20-5.40)
Hgb 4.0 L* g/dL
(12.0-16.0)
Hct 15.5 L* %
(37.0-47.0)
MCV 63.5 L fL
(81.0-99.0)
MCH 16.4 L pg
(27.0-31.0)
MCHC 25.8 L g/dL
(33.0-37.0)
RDW 21.2 H %
(11.5-14.5)
MPV 10.5 H fL
(7.4-10.4)
Absolute Lymphs (auto) 0.7 L 10^3/uL
(1.2-3.4)
Lymphocytes % 17.4 L %
(20.5-51.1)
Monocytes % 13.8 H %
(1.7-9.3)
PT 20.9 H Sec
(11.4-14.6)
Chloride 109 H mmol/L
(98-107)
BUN 27 H mg/dl
(7-17)
Creatinine 1.1 H mg/dL
(0.6-1.0)
Glucose 150 H mg/dl
(70-99)
Troponin I 0.066 H* ng/ml
Total Protein 6.0 L g/dl
(6.3-8.2)
03/29/25 15:30
03/29/25 15:30
Vital Signs
Initial and Last Documented VS:
Initial Vital Signs
Temp Pulse Resp BP Pulse Ox
98.1 F 63 16 130/57 95
03/29/25 15:13 03/29/25 15:13 03/29/25 15:13 03/29/25 15:13 03/29/25 15:13
Last Documented Vital Signs
Temp Pulse Resp BP Pulse Ox
98.1 F 63 20 150/39 96
03/29/25 15:13 03/29/25 17:05 03/29/25 17:05 03/29/25 17:05 03/29/25 17:05
MDM/Problems Addressed
Differential Diagnosis Includes:
Patient with stable vital signs but presents from family doctor reference for low outpatient hemoglobin. Stool is heme-negative. Her hemoglobin today is 4.0. White count low also. Platelets are normal. No evidence of active bleeding on exam.
2 units of packed red blood cells ordered blood consent signed. Will admit to hospital for symptomatic anemia
*Critical Care Note
Total Time (30-74mins, 75-104mins- exclusive of procedures): Not Applicable
ED Attending Note
-
Portions of this chart may have been created with voice recognition software.� Occasional wrong word or��sound alike� substitutions may have occurred due to the inherent limitations of voice recognition software.
Discharge Plan
Departure
Patient Disposition: Admit
Date of Disposition: 03/29/25
Time of Disposition: 17:49
Presentation/result/management discussed w/ accepting MD/DO: Hospitalist
Discharge Problem:
Symptomatic anemia
Prescriptions:
No Action
ascorbic acid (vitamin C) [Vitamin C] 500 mg Tablet
500 mg PO DAILY
atorvastatin 10 mg Tablet
10 mg PO QPM 30 Days Qty: 0 0RF
Eliquis 5 mg Tablet
5 mg PO BID Qty: 60 0RF
lisinopril 5 mg Tablet
5 mg PO BID
furosemide 20 mg Tablet
20 mg PO MOWEFR
cyanocobalamin (vitamin B-12) [Vitamin B-12] 1,000 mcg Tablet
1,000 mcg PO MO
sertraline 25 mg Tablet
25 mg PO DAILY
calcium citrate-vitamin D3 [Citracal-D3 Petites] 200 mg-6.25 mcg (250 unit) Tablet
2 tab PO BID
senna 8.6 mg Capsule
17.2 mg PO HS
amiodarone 100 mg tablet
100 mg PO DAILY Qty: 30 1RF
acetaminophen 325 mg tablet
650 mg PO Q6HPRN PRN (Reason: MILD PAIN)
Interventions
Interventions:
*Risk Screen - Suicide Last Done: 03/29/25 15:13
*General Assessment Last Done: 03/29/25 16:14
*Neglect/Abuse Screening Last Done: 03/29/25 15:13
*ED- Fall Risk Assessment Last Done: 03/29/25 15:13
*ED COVID-19 Vaccine History Last Done: 03/29/25 16:14
Discharge Date and Time
Print Language: CITIZEN [place]
--- NOTE | 2025-03-29 18:17 | HPS.HSE ---
Family Physician
-
Family Physician:
Chief Complaint
-
anemia
History of Present Illness
This is an addendum to H&P written by Annie Dwyer on 03/29/2025. Patient seen and examined independently with COMPUTER REPAIR INSTRUCTOR.
89-year-old female past medical history of atrial fibrillation/flutter on Eliquis, hypertension, hyperlipidemia, diabetes, bladder cancer, CKD 3, melanoma, presenting with low hemoglobin on outpatient labs. Recently has been having fatigue,
shortness of breath ongoing for several weeks. No blood in the stool or black stool. No changes in bowel movements. No abdominal pain. No nausea or vomiting. She has lost 3 pounds recently. No chest pain. No dizziness. No blood in the urine.
No vaginal bleeding.
She denies any history of GI bleeding. She has had a colonoscopy of long time ago.
No family history of GI problems.
She does not smoke or drink alcohol.
Medical History
Past Medical History
Past Medical History: Reports Other (atrial fibrillation/flutter on Eliquis, hypertension, hyperlipidemia, diabetes, bladder cancer, CKD 3, melanoma)
Past Surgical History: Reports Other (Cardiac, Cholecystectomy, Gynecological (, D&E), Orthopedic (Right hip surgery), Tonsilectomy and Urological (Bladder tumors removed))
Social History
Tobacco: Non-smoker
Alcohol: None
Drug: None
Family History
Family History: Not pertinent
Allergies / Home Medications
Allergies reflects when Allergies were last updated in [employer].
Home Medications with original date entered in [employer]
Allergy/Medication List:
Allergies
Allergy/AdvReac Type Severity Reaction Status Date / Time
codeine [Codeine] Allergy Unknown Verified 03/29/25 15:15
Sulfa (Sulfonamide Allergy Unknown Verified 03/29/25 15:15
Antibiotics)
Home Medications
ascorbic acid (vitamin C) 500 mg tablet (Vitamin C) 500 mg PO DAILY supplement 07/24/23
apixaban 5 mg tablet (Eliquis) 5 mg PO BID #60 tabs 07/30/23
atorvastatin 10 mg tablet 10 mg PO QPM 30 days #0 tabs 07/30/23
furosemide 20 mg tablet 20 mg PO MOWEFR Fluid Retention/Swelling 02/03/24
lisinopril 5 mg tablet 5 mg PO BID Blood Pressure 02/03/24
cyanocobalamin (vitamin B-12) 1,000 mcg tablet (Vitamin B-12) 1,000 mcg PO MO Supplement 09/06/24
sertraline 25 mg tablet 25 mg PO DAILY Mental Health/Anxiety 09/06/24
calcium 200 mg (as citrate)-vitamin D3 6.25 mcg (250 unit) tablet (Citracal-D3 Petites) 2 tab PO BID Supplement 10/09/24
sennosides 8.6 mg capsule (senna) 17.2 mg PO HS 10/19/24
amiodarone 100 mg tablet 100 mg PO DAILY #30 tabs 10/20/24
acetaminophen 325 mg tablet 650 mg PO Q6HPRN PRN MILD PAIN 03/29/25
Review of Systems
-
History Source: Patient
A 12 point ROS was completed and negative except as noted: Yes
Constitutional: Reports No Symptoms
EENT: Reports No Symptoms
Respiratory: Reports See HPI
Cardiac: Reports No Symptoms
Abdomen/GI: Reports See HPI
: Reports No Symptoms
Musculoskeletal: Reports No Symptoms
Skin: Reports No Symptoms
Neurological: Reports No Symptoms
Endocrine: Reports No Symptoms
Hematologic/Lymphatic: Reports No Symptoms
Psych: Reports No Symptoms
Physical Exam
Vital Signs
Vital Signs
Temp Pulse Resp BP Pulse Ox
98.1 F 63 20 150/39 96
03/29/25 15:13 03/29/25 17:05 03/29/25 17:05 03/29/25 17:05 03/29/25 17:05
Physical Exam
General: Well Developed, Well Nourished and No Apparent Distress
HEENT: NormoCephalic, Moist mucous membranes and Atraumatic
Respiratory: Clear
Cardiac: S1/S2 and Regular Rhythm; No Murmur or Rub
GI: Soft, Non Tender, Non Distended and Normal Bowel Sounds; No Organomegaly
Rectal: Deferred by Provider
Musculoskeletal: No Clubbing, No Cyanosis and No Edema
Skin: No Rash
Neuro: Nonfocal/grossly intact
Laboratory Results
-
03/29/25 15:30
03/29/25 15:30
Laboratory Results
PT 20.9 Sec (11.4-14.6) H 03/29/25 15:30
INR 1.78 03/29/25 15:30
APTT 33.7 Sec (23.4-35.0) 03/29/25 15:30
Total Bilirubin 0.7 mg/dl (0.2-1.3) 03/29/25 15:30
AST 18 U/L (14-36) 03/29/25 15:30
ALT 11 U/L (0-35) 03/29/25 15:30
Alkaline Phosphatase 75 U/L (38-126) 03/29/25 15:30
Troponin I 0.066 ng/ml H* 03/29/25 15:31
Data Reviewed
-
Lab Data: Labs Reviewed by me
Old Records: Reviewed
Impression/Plan
-
IMPRESSION:
PLAN:
# Severe microcytic acute blood loss anemia suspect GI source
-no rectal bleeding history
-Hemoccult is brown, heme-negative
- Hemoglobin of 4 from 11 previously
-Type and screen
- 3 units of blood
- Protonix 40 IV twice daily
- Clears, n.p.o. past midnight
- Hold Eliquis
- iron studies, B12 and folate
- GI consulted
Atrial fibrillation/flutter
- Hold Eliquis
- Continue amiodarone
Essential hypertension
- Continue lisinopril
Hyperlipidemia
- Continue statin
Type 2 diabetes
- Insulin sliding scale
Bladder cancer
CKD 3
- Renal function close to baseline
Melanoma
Anxiety/depression
- Continue sertraline
Lower extremity edema
- hold Lasix
DNR/DNI
DVT prophylaxis SCDs
N.p.o.
[2025-03-29] MEDS: NSS (PRESERVATIVE FREE) 20 ML IV (18:36)
[2025-03-29] MEDS: PROTONIX IV 80 MG IV (18:36)
--- NOTE | 2025-03-29 20:00 | PTCARENOTE ---
Receive pt from ER. Pt alert oriented X3, in no distress, but reports weak and fatigued. 1st unit of blood transfusing. No signs of reaction reported. Pt pulled over to her bed. Pt oriented to the room, call nichole within reach. Pt's daughter at the
bedside helping with pt's hx. Pt on NSR on telemonitor. VSS (T=97.8, HR=66, RR=18, XX=073/53, SpO2=93-95% on RA).
[2025-03-29 20:23] LABS: Total Iron Binding Capacity 461 ug/dl (265-497)
[2025-03-29 20:33] LABS: Iron 20 ug/dl (37-170); Percent Saturation 4 % (20-50)
[2025-03-29] MEDS: ZESTRIL 5 MG PO (20:55)
[2025-03-29] MEDS: SENOKOT 17.2 MG PO (20:56)
[2025-03-29] MEDS: OSCAL 500 + D 500 MG PO (20:56)
[2025-03-29 21:02] LABS: Ferritin 6.2 ng/ml (11.1-264.0)
[2025-03-29 21:34] LABS: Folate 12.1 ng/ml (2.76-20); Vitamin B12 431 pg/ml (239-931)
[2025-03-29 21:46] LABS: Glucose - Point of Care 130 mg/dl (70-99)
[2025-03-30] VITALS (9 sets, daily range): BP systolic 133–163; BP diastolic 41–60
[2025-03-30] MEDS: TYLENOL 650 MG PO ×2 (00:33→20:51)
--- NOTE | 2025-03-30 00:38 | PTCARENOTE ---
2nd unit of blood started at 2344. VS in. System keep asking to for VS. Reinter VS. System still asking for VS. Check with blood blank and nursing supervisor assembly department. Plan is to use the pink sheet. Verification and VS filled in the sheet.
[2025-03-30 05:51] LABS: Glucose - Point of Care 115 mg/dl (70-99)
[2025-03-30 08:33] LABS: % Basophils 0.8 % (0-2); % Immature Granulocytes 0.5 % (0-0.5); % Lymphocytes 10.6 % (20.5-51.1); % Monocytes 10.4 % (1.7-9.3); % Neutrophils 74.6 % (42.2-75.2); Absolute Basophils 0.1 10^3/uL (0-0.2); Absolute Eosinophils 0.2 10^3/uL (0-0.7); Absolute Lymphocytes 0.6 10^3/uL (1.2-3.4); Absolute Monocytes 0.6 10^3/uL (0.1-0.6); Absolute Neutrophils 4.6 10^3/uL (1.4-6.5); Hematocrit 24.4 % (37.0-47.0); Hemoglobin 7.2 g/dL (12.0-16.0); Mean Corp Hgb Conc. 29.4 g/dL (33.0-37.0); Mean Corpuscular Hgb 20.7 pg (27.0-31.0); Mean Corpuscular Volume 70.6 fL (81.0-99.0); Nucleated Red Blood Cells % 0.7 %; Platelet Count 168 10^3/uL (130-400); Red Blood Cell Count 3.47 10^6/uL (4.20-5.40); Red Cell Dist. Width 24.9 % (11.5-14.5); White Blood Cell Count 6.2 10^3/uL (4.8-10.8)
[2025-03-30 08:47] LABS: Glycohemoglobin (HgbA1c) 5.7 % (4.0-5.6)
[2025-03-30 08:49] LABS: ALT (SGPT) < 10 U/L (0-35); AST (SGOT) 18 U/L (14-36); Albumin 3.3 g/dl (3.5-5.0); Alkaline Phosphatase 75 U/L (38-126); Blood Urea Nitrogen 21 mg/dl (7-17); Calcium 8.3 mg/dl (8.4-10.2); Carbon Dioxide 27 mmol/L (22-30); Chloride 110 mmol/L (98-107); Estimated Creatinine Clearance 37 ml/min; Glucose 98 mg/dl (70-99); Potassium 3.8 mmol/L (3.5-5.1); Sodium 142 mmol/L (135-145); Total Bilirubin 1.5 mg/dl (0.2-1.3); Total Protein 5.6 g/dl (6.3-8.2); eGFR 53.85
[2025-03-30] MEDS: NSS (PRESERVATIVE FREE) 10 ML IV ×2 (09:56→20:37)
[2025-03-30] MEDS: FLUSH (NSS) 2 FLUSH IV (09:56)
[2025-03-30] MEDS: PROTONIX IV 40 MG IV ×2 (09:56→20:37)
[2025-03-30] MEDS: OSCAL 500 + D 500 MG PO ×2 (09:57→20:38)
[2025-03-30] MEDS: FLUSH (NSS) 1 FLUSH IV (09:57)
[2025-03-30] MEDS: VITAMIN C 500 MG PO (09:57)
[2025-03-30] MEDS: ZESTRIL 5 MG PO ×2 (09:58→20:38)
[2025-03-30] MEDS: ZOLOFT 25 MG PO (09:58)
[2025-03-30] MEDS: PACERONE 100 MG PO (09:58)
[2025-03-30 11:46] LABS: Glucose - Point of Care 122 mg/dl (70-99)
--- NOTE | 2025-03-30 13:40 | CON.GI ---
Addendum entered and electronically signed by Julain Brito MD 03/30/25 19:30:
I saw and examined the patient.
The PA's note was reviewed and I agree with the note.
Comment:
89 year-old female with h/o bladder cancer, CKD 3, melanoma, s/p TAVR (10/2024), HTN, DM, and afib/flutter on Eliquis who p/w symptomatic anemia.
Impression / Rec:
1. Symptomatic anemia - she presents with symptomatic microcytic anemia with Hgb of 4. She denies symptoms or signs of GI bleed such as coffee-ground emesis, melena, rectal bleeding, abdominal pain, or NSAID use. Her stools have been brown and
FOBT -ve. Colonoscopy remotely and never had EGD. Given this parameters, it is unlikely that her microcytic anemia stems from chronic GI blood loss. Had extensive discussion with patient and her daughter regarding the low pretest probability of
finding cause of her anemia from endoscopic evaluation. Shared decision was made to defer endo eval for now and pursue electively if needed. Recommend hematology evaluation. GI s/o. Pls call with questions.
Original Note:
Consultation
-
Date/Time Consultation Requested: 03/29/251942
Date/Time Consultation Performed: 03/30/25 1340
Requesting Provider: Dr. Farr
Performing Provider: Dr. Brito/MORALES Doll
Reason for Consultation: microcytic anemia
Medical History
Chief Complaint / HPI
Chief Complaint: low hgb as outpatient
History of Present Illness:
89-year-old female with past medical history of bladder cancer, CKD 3, melanoma, aortic stenosis status post TAVR (10/2024) hypertension, hyperlipidemia, diabetes, depression, A-fib/a flutter on Eliquis, epistaxis, diverticulosis who presents to the
emergency room with outpatient lab work showing a profoundly low hemoglobin. Patient was instructed to present to the emergency room for further evaluation. We are asked to evaluate for microcytic anemia. The patient's has been complaining of
fatigue lightheadedness and shortness of breath without any chest pain. She had outpatient labs performed that showed a hemoglobin of 4. She presented to the emergency room where this was confirmed. She had her stool checked and it was brown and
OB negative. She is on Eliquis 5 mg p.o. twice daily.She was transfused 3 units of packed red blood cells with improvement of hemoglobin is currently 7.2. She did have a microcytosis with MCV of 63.5, MCH is 16.4. Her last colonoscopy was in 2010
that showed diverticulosis only. It was recommended to repeat follow-up in 10 years. She has no prior history of GI bleeding. She does have a history of epistaxis and was in the emergency room in November where she required silver nitrate for
cessation of bleeding. The patient states she has not had a nosebleed since. She just had a bowel movement which was madden and formed. She denies any fevers, chills, nausea, vomiting, melena, hematochezia, dysphagia or dyne aphasia. No early
satiety or unintentional weight loss. She does have an area on the back of her left calf that she states bleeds and uses on a daily basis. Otherwise she has no areas of bleeding.
Past Medical History
Past Medical History: Other (Bladder cancer, CKD 3, melanoma, aortic stenosis status post TAVR, hypertension, hyperlipidemia, diabetes, depression, A-fib/flutter, epistaxis, diverticulosis)
Past Surgical History: Other (Cholecystectomy, , D&E, right hip surgery, tonsillectomy, bladder tumor removal, TAVR)
Social History
Tobacco: Non-Smoker
Alcohol: None
Drug: None
Family History
Family History: Other (No family history of gastrointestinal malignancy or IBD)
Allergies / Home Medications
Allergy/AdvReac Type Severity Reaction Status Date / Time
codeine [Codeine] Allergy Unknown Verified 03/29/25 15:15
Sulfa (Sulfonamide Allergy Unknown Verified 03/29/25 15:15
Antibiotics)
�Medication �Instructions �Recorded
ascorbic acid (vitamin C) 500 mg 500 mg PO DAILY supplement 07/24/23
tablet (Vitamin C)
atorvastatin 10 mg tablet 10 mg PO QPM 30 days #0 tabs 07/30/23
furosemide 20 mg tablet 20 mg PO MOWEFR Fluid 02/03/24
Retention/Swelling
lisinopril 5 mg tablet 5 mg PO BID Blood Pressure 02/03/24
cyanocobalamin (vitamin B-12) 1,000 mcg PO MO Supplement 09/06/24
1,000 mcg tablet (Vitamin B-12)
sertraline 25 mg tablet 25 mg PO DAILY Mental 09/06/24
Health/Anxiety
calcium 200 mg (as 2 tab PO BID Supplement 10/09/24
citrate)-vitamin D3 6.25 mcg (250
unit) tablet (Citracal-D3 Petites)
sennosides 8.6 mg capsule (senna) 17.2 mg PO HS Gastrointestinal 10/19/24
Issue
amiodarone 100 mg tablet 100 mg PO DAILY #30 tabs 10/20/24
acetaminophen 325 mg tablet 650 mg PO Q6HPRN PRN MILD PAIN 03/29/25
apixaban 5 mg tablet (Eliquis) 5 mg PO BID Blood Clot 03/30/25
Prevention/Tx
Review of Systems
-
All other systems: A 12 pt ROS was Negative except as stated above in HPI
Vital Signs
Temp Pulse Resp BP Pulse Ox
98.4 F 62 20 133/44 97
03/30/25 11:23 03/30/25 11:23 03/30/25 11:23 03/30/25 11:23 03/30/25 11:23
Physical Exam
Exam
General: No Apparent Distress
HEENT: Anicteric
Respiratory: Clear (Anterior)
Cardiac: Regular Rhythm
GI: Soft, Non Tender, Non Distended and Normal Bowel Sounds
Rectal: Hem Negative (Madden stool, OB negative)
Musculoskeletal: Edema (Bilateral lower extremity edema +1)
Skin: Warm and Dry
Neuro: AO x 3
Psych: Calm
Results
WBC 6.2 10^3/uL (4.8-10.8) 03/30/25 07:44
Hgb 7.2 g/dL (12.0-16.0) L D 03/30/25 07:44
Hct 24.4 % (37.0-47.0) L 03/30/25 07:44
MCV 70.6 fL (81.0-99.0) L 03/30/25 07:44
Plt Count 168 10^3/uL (130-400) 03/30/25 07:44
Absolute Neuts (auto) 4.6 10^3/uL (1.4-6.5) 03/30/25 07:44
PT 20.9 Sec (11.4-14.6) H 03/29/25 15:30
INR 1.78 03/29/25 15:30
APTT 33.7 Sec (23.4-35.0) 03/29/25 15:30
Sodium 142 mmol/L (135-145) 03/30/25 07:44
Potassium 3.8 mmol/L (3.5-5.1) 03/30/25 07:44
Chloride 110 mmol/L (98-107) H 03/30/25 07:44
Carbon Dioxide 27 mmol/L (22-30) 03/30/25 07:44
BUN 21 mg/dl (7-17) H 03/30/25 07:44
Creatinine 1.0 mg/dL (0.6-1.0) 03/30/25 07:44
Calcium 8.3 mg/dl (8.4-10.2) L 03/30/25 07:44
Total Bilirubin 1.5 mg/dl (0.2-1.3) H 03/30/25 07:44
AST 18 U/L (14-36) 03/30/25 07:44
ALT < 10 U/L (0-35) 03/30/25 07:44
Alkaline Phosphatase 75 U/L (38-126) 03/30/25 07:44
Diagnostic Image Results:
Prior GI Procedures:
EGD: Never had
Colonoscopy: 04/09/2011 (Dr. Landon): - Diverticulosis sigmoid colon and descending colon.
- The examination was otherwise normal
Assessment / Plan
-
89-year-old female with past medical history of bladder cancer, CKD 3, melanoma, aortic stenosis status post TAVR (10/2024) hypertension, hyperlipidemia, diabetes, depression, A-fib/a flutter on Eliquis, epistaxis, diverticulosis who presents to the
emergency room with outpatient lab work showing a profoundly low hemoglobin. Patient was instructed to present to the emergency room for further evaluation. We are asked to evaluate for microcytic anemia. On presentation her hemoglobin was 4.
She received 3 units of packed red blood cells and currently her hemoglobin is 7.3. The patient has light brown OB negative stool. She does have microcytic anemia and is iron deficient. Her previous hemoglobin 10/20/2024 was 11.0. She currently
is on Eliquis. She denies any GI complaints. Her last colonoscopy was in 2010 and had diverticulosis. She has no family history of gastrointestinal malignancy or IBD.
Impression:
Symptomatic anemia
Iron deficiency anemia
OB negative stool
Chronic anticoagulation Eliquis for A-fib/a flutter
History of TAVR
CKD 3
Plan:
- Eliquis currently on hold
-Trend hemoglobin, transfuse as needed to keep hemoglobin greater than 7
-Watch for signs of bleeding
-To consider endoscopy and colonoscopy. Timing to be determined.
- Consider hematology evaluation
- Further recommendations to be forthcoming
-
-
Thank you for consultation and allowing me to participate in the patient's care. Please call the rn telephonic GI physician during the after hours with any questions or concerns.
--- NOTE | 2025-03-30 14:18 | W.PN.HOSP.TC ---
Today's Communication/Plan
-
Monitor H&H
Assessment / Plan
Assessment / Plan
Impression:
Assessment/plan:
Severe iron deficiency anemia/acute blood loss anemia
-no rectal bleeding history
-Hemoccult is brown, heme-negative
- Hemoglobin of 4 from 11 previously
-Type and screen
- 3 units of blood
- Protonix 40 IV twice daily
- Clears, n.p.o. past midnight
- Hold Eliquis
-Iron study shows evidence of iron deficiency, will give IV iron.
Appreciate GI consult, recommendation to trend hemoglobin and consider scope.
Paroxysmal atrial fibrillation/flutter
-Currently sinus rhythm.
Hold Eliquis
- Continue amiodarone
Essential hypertension
- Continue lisinopril
Hyperlipidemia
- Continue statin
Type 2 diabetes
- Insulin sliding scale
Anxiety/depression
- Continue sertraline
Lower extremity edema
-Lasix on hold
CODE STATUS: DNR/DNI
DVT prophylaxis: SCDs
Diet: cardiac diet
Disposition: Monitor H&H
Total time spent on today's encounter was 65 minutes which included time spent in counseling the patient/family regarding diagnosis and treatment plan as listed above, goals of care, and symptom management. Case was discussed with nursing staff,
specialists, and care coordinators/case management. All labs and imaging personally reviewed by me. Remainder the time spent in detailed review of previous records, lab data, imaging, and other medical provider documentation.
Anticipated Discharge: > 48 hours
Subjective/Interval History
-
Date of Service: March 30, 2025
Patient seen and examined at bedside, denies chest pain or shortness of breath, still feeling, hemoglobin improved after 3 units of blood transfusion.
Seen by GI, no intervention as of now.
Objective Data
-
Labs:
Laboratory Results
05/16/25
07:44
WBC 6.2
Hgb 7.2 L D
Hct 24.4 L
Plt Count 168
Sodium 142
Potassium 3.8
Chloride 110 H
Carbon Dioxide 27
BUN 21 H
Creatinine 1.0
Glucose 98
Calcium 8.3 L
Total Bilirubin 1.5 H
AST 18
ALT < 10
Alkaline Phosphatase 75
Vital Signs:
Vital Signs
Temp Pulse Resp BP Pulse Ox
98.4 F 62 20 133/44 97
03/30/25 11:23 03/30/25 11:23 03/30/25 11:23 03/30/25 11:23 03/30/25 11:23
I&O
03/29/25 03/30/25 03/31/25
06:59 06:59 06:59
Intake Total 1250 / 1250
Output Total 150 / 150
Balance 1100 / 1100
Physical Exam
-
General: Well Developed, Well Nourished, No Apparent Distress and Comfortable
HEENT: Normocephalic, Atraumatic, Moist Mucous Membranes, No Ptosis, PERRLA and Nose Appears Normal
Respiratory: Clear to Auscultation and Non Labored Respirations
Cardiac: Regular Rhythm and S1/S2
Breast: Deferred by me
GI: Soft, Nontender, Nondistended and Normal Bowel Sounds
Genito-urinary: No Costovertebral Tender
Musculoskeletal: No Clubbing, No Cyanosis and No Edema
Skin: Warm
Neuro: Awake, Alert, Oriented, AO x 3 and No Motor Deficits
Psych: Calm
Data Reviewed
-
Diagnostic Radiology: Image personally visualized and interpreted and Report Reviewed by me
CT Scan: Image personally visualized and interpreted and Report Reviewed by me
Ultrasound: Image personally visualized and interpreted and Report Reviewed by me
MRI: Image personally visualized and interpreted and Report Reviewed by me
Medical Tests (Nuc Med, Echo etc): Image personally visualized and interpreted and Report Reviewed by me
Labs: Labs Reviewed by me
Old Records: Reviewed
[2025-03-30 16:37] LABS: Glucose - Point of Care 117 mg/dl (70-99)
--- NOTE | 2025-03-30 17:06 | CM ---
Chart reviewed and caseworker met with patient and her daughter Martha at bedside, patient lives with her spouse at [facility] in [place], patient requires assist with showering, patient is w/c level but able to transfer to bed and dress herself.
Patient is able to self propel in w/c, plan is to return to [facility] in [place] when stable.
Plan; To return to [facility] in [place] when stable.
[2025-03-30] MEDS: LIPITOR 10 MG PO (17:48)
[2025-03-30 19:46] LABS: Hematocrit 25.3 % (37.0-47.0); Hemoglobin 7.6 g/dL (12.0-16.0)
[2025-03-30] MEDS: SENOKOT 17.2 MG PO (20:39)
[2025-03-30 21:27] LABS: Glucose - Point of Care 156 mg/dl (70-99)
[2025-03-31 03:58] VITALS: BP 145/57
[2025-03-31] MEDS: TYLENOL 650 MG PO ×2 (04:00→20:54)
[2025-03-31 06:06] VITALS: BMI 31.0
[2025-03-31 08:06] LABS: Glucose - Point of Care 126 mg/dl (70-99)
[2025-03-31 08:09] VITALS: BP 155/63
[2025-03-31 09:06] LABS: Hematocrit 25.2 % (37.0-47.0); Hemoglobin 7.4 g/dL (12.0-16.0); Mean Corp Hgb Conc. 29.4 g/dL (33.0-37.0); Mean Corpuscular Hgb 21.1 pg (27.0-31.0); Platelet Count 170 10^3/uL (130-400); Red Cell Dist. Width 25.2 % (11.5-14.5)
[2025-03-31 09:40] LABS: Blood Urea Nitrogen 17 mg/dl (7-17); Calcium 8.5 mg/dl (8.4-10.2); Carbon Dioxide 26 mmol/L (22-30); Chloride 111 mmol/L (98-107); Estimated Creatinine Clearance 41 ml/min; Glucose 124 mg/dl (70-99); Potassium 3.6 mmol/L (3.5-5.1); Sodium 142 mmol/L (135-145); eGFR > 60.00
[2025-03-31] MEDS: FLUSH (NSS) 2 FLUSH IV ×2 (10:03→14:13)
[2025-03-31] MEDS: PROTONIX IV 40 MG IV ×2 (10:03→20:31)
[2025-03-31] MEDS: NSS (PRESERVATIVE FREE) 10 ML IV ×2 (10:03→20:30)
[2025-03-31] MEDS: ZESTRIL 5 MG PO ×2 (10:04→20:31)
[2025-03-31] MEDS: PACERONE 100 MG PO (10:04)
[2025-03-31] MEDS: VITAMIN C 500 MG PO (10:04)
[2025-03-31] MEDS: OSCAL 500 + D 500 MG PO ×2 (10:04→20:31)
[2025-03-31] MEDS: ZOLOFT 25 MG PO (10:04)
[2025-03-31] MEDS: FLUSH (NSS) 1 FLUSH IV (10:05)
[2025-03-31 11:35] VITALS: BP 138/64
--- NOTE | 2025-03-31 12:00 | W.PN.HOSP.TC ---
Today's Communication/Plan
-
Hematology consult.
PT/OT consult.
Monitor Hb
Assessment / Plan
Assessment / Plan
Impression:
Assessment/plan:
Severe iron deficiency anemia/acute blood loss anemia
-no rectal bleeding history
-Hemoccult is brown, heme-negative
- Hemoglobin of 4 from 11 previously
-Type and screen
- 3 units of blood
- Protonix 40 IV twice daily
- Hold Eliquis
-Iron study shows evidence of iron deficiency, will give IV iron.
Appreciate GI consult,
03/31
GI signed off since no evidence of GI bleeding currently.
Recommendation to consult hematology for severe iron deficiency anemia.
Continue IV iron.
Paroxysmal atrial fibrillation/flutter
-Currently sinus rhythm.
Hold Eliquis
- Continue amiodarone
Essential hypertension
- Continue lisinopril
Hyperlipidemia
- Continue statin
Type 2 diabetes
- Insulin sliding scale
Anxiety/depression
- Continue sertraline
Lower extremity edema
-Lasix on hold
CODE STATUS: DNR/DNI
DVT prophylaxis: SCDs
Diet: cardiac diet
Disposition: Monitor H&H
Hematology consult
Total time spent on today's encounter was 65 minutes which included time spent in counseling the patient/family regarding diagnosis and treatment plan as listed above, goals of care, and symptom management. Case was discussed with nursing staff,
specialists, and care coordinators/case management. All labs and imaging personally reviewed by me. Remainder the time spent in detailed review of previous records, lab data, imaging, and other medical provider documentation.
Anticipated Discharge: 24 - 48 hours
Subjective/Interval History
-
Date of Service: March 31, 2025
Patient seen and examined at bedside, denies any chest pain or shortness of breath, no abdominal pain, no nausea, no vomiting, no diarrhea or constipation.
Hemoglobin 7.4.
GI signed off and recommending hematology consult.
Objective Data
-
Labs:
Laboratory Results
03/31/25
08:42
WBC 7.0
Hgb 7.4 L
Hct 25.2 L
Plt Count 170
Sodium 142
Potassium 3.6
Chloride 111 H
Carbon Dioxide 26
BUN 17
Creatinine 0.9
Glucose 124 H
Calcium 8.5
Vital Signs:
Vital Signs
Temp Pulse Resp BP Pulse Ox
98.1 F 67 18 138/64 94
03/31/25 11:35 03/31/25 11:35 03/31/25 11:35 03/31/25 11:35 03/31/25 11:35
I&O
03/30/25 03/31/25 04/01/25
06:59 06:59 06:59
Intake Total 1250 / 1250 240 / 240
Output Total 150 / 150 303 / 303
Balance 1100 / 1100 -63 / -63
Physical Exam
-
General: Well Developed, Well Nourished, No Apparent Distress and Comfortable
HEENT: Normocephalic, Atraumatic, Moist Mucous Membranes, No Ptosis, PERRLA and Nose Appears Normal
Respiratory: Clear to Auscultation and Non Labored Respirations
Cardiac: Regular Rhythm and S1/S2
Breast: Deferred by me
GI: Soft, Nontender, Nondistended and Normal Bowel Sounds
Genito-urinary: No Costovertebral Tender
Musculoskeletal: No Clubbing, No Cyanosis and No Edema
Skin: Warm
Neuro: Awake, Alert, Oriented, AO x 3 and No Motor Deficits
Psych: Calm
Data Reviewed
-
Diagnostic Radiology: Image personally visualized and interpreted and Report Reviewed by me
CT Scan: Image personally visualized and interpreted and Report Reviewed by me
Ultrasound: Image personally visualized and interpreted and Report Reviewed by me
MRI: Image personally visualized and interpreted and Report Reviewed by me
Medical Tests (Nuc Med, Echo etc): Image personally visualized and interpreted and Report Reviewed by me
Labs: Labs Reviewed by me
Old Records: Reviewed
[2025-03-31 12:13] LABS: Glucose - Point of Care 139 mg/dl (70-99)
--- NOTE | 2025-03-31 12:54 | CON.ONC ---
Consultation
-
Date Consultation Requested: 03/31/25
Date Consultation Performed: 03/31/25
Requesting Provider: Dr Portillo
Performing Provider: Christel kaur
Reason for Consultation: iron deficiency anemia
Impression
Impression
- Severe iron deficiency anemia
- atrial fibrillation on eliquis
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
Plan
Plan
- pt presenting with severe anemia which is new compared to labs in October post-TAVR which, at that time showed possibly a mild anemia developing on pre-op labs with hgb 10-11 g/dl from 12-13 g/dl in july.
- severe MATHIEU with IS 4%, ferritin 6.2 ng/ml. B12, folate normal. pt denies obvious bleeding symptoms. FOBT by GI negative now.
- timing after TAVR with perivalvular leak on post-echo makes intravascular hemolysis potential contributor however T bili normal on admission (slight rise after transfusions). will check LDH, hapto, retic but low suspicion for active hemolysis.
- reviewed that even if stool negative now some bleeding event likely occurred to lead to such a severe anemia over 4-5 months with such severe MATHIEU. Pt and family deferred endoscopic evaluation which I feel is reasonable at her age but may need to
be reconsidered depending on hgb trend/need for repeat transfusions.
- s/p 3 units prbcs and receiving IV iron.
- recommend continuing to hold eliquis for now until know hgb stable. will need to weigh risks and benefits of resuming depending on hgb trend.
- will arrange for hematology follow up for ongoing monitoring and management of anemia.
Patient History
Past-Medical/Surgical History
89-year-old female past medical history of atrial fibrillation/flutter on Eliquis, hypertension, hyperlipidemia, diabetes, bladder cancer, CKD 3, melanoma, who presented to ER with low hemoglobin on outpatient labs. CBC on admission with hgb 4.0
g/dl with MCV 63.5 fl. Anemia work-up with severe MATHIEU with IS 4%, ferritin 6.2 ng/ml. Prior CBCs show normal hgb 12.4 g/dl in September with mild drop to 10-11 in October. B12 borderline at 431, normal folate. She received 3 units pRBCs with rise in
hgb to 7.4 g/dl today. IV iron ordered. GI was consulted who performed FOBT that was negative. After discussion regarding endoscopic exam pt deferred. She last had colonoscopy several years ago, no EGD. Denies melena, BRBPR, heartburn, indigestion,
hematuria, vaginal bleeding. She has been on Eliquis since admission July 2023 for a-fib. She underwent TAVR 10/19/24. Discharge summary after this notes 'Hgb dropped to 10.4 from 12.4 in preadmission testing-->repeat midday 11.0. Follow up
echo completed which demonstrates mean gradient of 19mmHg with mild to moderate perivalvular leak.' No repeat CBCs available from that d/c to this admission. Denies unexplained weight loss, decreased appetite, abdominal pain or bloating.
Patient Medication
�Medication �Instructions �Recorded �Confirmed �Last Taken �Type
ascorbic acid (vitamin C) 500 mg 500 mg PO DAILY supplement 07/24/23 03/29/25 03/29/25 History
tablet (Vitamin C)
atorvastatin 10 mg tablet 10 mg PO QPM 30 days #0 tabs 07/30/23 03/29/25 03/28/25 Rx
furosemide 20 mg tablet 20 mg PO MOWEFR Fluid 02/03/24 03/29/25 03/28/25 History
Retention/Swelling
lisinopril 5 mg tablet 5 mg PO BID Blood Pressure 02/03/24 03/29/25 03/29/25 History
cyanocobalamin (vitamin B-12) 1,000 mcg PO MO Supplement 09/06/24 03/29/25 03/26/25 History
1,000 mcg tablet (Vitamin B-12)
sertraline 25 mg tablet 25 mg PO DAILY Mental 09/06/24 03/29/25 03/29/25 History
Health/Anxiety
calcium 200 mg (as 2 tab PO BID Supplement 10/09/24 03/29/25 03/29/25 History
citrate)-vitamin D3 6.25 mcg (250
unit) tablet (Citracal-D3 Petites)
sennosides 8.6 mg capsule (senna) 17.2 mg PO HS Gastrointestinal 10/19/24 03/29/25 03/28/25 History
Issue
amiodarone 100 mg tablet 100 mg PO DAILY #30 tabs 10/20/24 03/29/25 03/29/25 Rx
acetaminophen 325 mg tablet 650 mg PO Q6HPRN PRN MILD PAIN 03/29/25 03/29/25 03/29/25 History
apixaban 5 mg tablet (Eliquis) 5 mg PO BID Blood Clot 03/30/25 03/29/25 03/29/25 History
Prevention/Tx
Active Medications
Generic Name Dose Route Start Last Admin
Trade Name Freq PRN Reason Stop Dose Admin
Acetaminophen 650 mg 03/29/25 19:43 03/31/25 04:00
Acetaminophen 325 Mg Tablet PO 04/26/25 19:42 650 mg
Q6HPRN PRN Administration
MILD PAIN
Amiodarone HCl 100 mg 03/30/25 08:00 03/31/25 10:04
Amiodarone 100 Mg Tablet PO 04/27/25 07:59 100 mg
DAILY SILVANA Administration
Ascorbic Acid 500 mg 03/30/25 08:00 03/31/25 10:04
Ascorbic Acid 500 Mg Tablet PO 04/27/25 07:59 500 mg
DAILY SILVANA Administration
Atorvastatin Calcium 10 mg 03/30/25 18:00 03/30/25 17:48
Atorvastatin (Lipitor) 10 Mg Tablet PO 04/27/25 17:59 10 mg
QPM SILVANA Administration
Calcium/Vitamin D 500 mg 03/29/25 20:00 03/31/25 10:04
Calcium Carbonate 500 Mg/Vitamin D 5 Mcg (200 Units) Tablet PO 04/26/25 19:59 500 mg
BID SILVANA Administration
Cyanocobalamin 1,000 mcg 04/02/25 08:00
Cyanocobalamin 1,000 Mcg Tablet PO 04/30/25 07:59
MO SILVANA
Dextrose 12.5 grams 03/29/25 19:43
Dextrose 50% (0.5 Grams/Ml) 50 Ml Syringe IV 04/26/25 19:42
[id number] PRN
hypoglycemia
Protocol
Glucagon 1 mg 03/29/25 19:43
Glucagon 1 Mg Vial IM 04/26/25 19:42
PRN PRN
hypoglycemia
Protocol
Ferric Sodium Gluconate 110 mls @ 110 mls/hr 03/31/25 14:00
Complex 125 mg/ Sodium IV 04/04/25 14:59
Chloride DAILY@1400 SILVANA
Insulin Aspart 0 units 03/30/25 07:30 03/31/25 12:15
Insulin Aspart Low Resistance 300 Units/3 Ml Pen.Injctr SC 04/27/25 07:29 Not Given
AC SILVANA
Protocol
Lisinopril 5 mg 03/29/25 20:00 03/31/25 10:04
Lisinopril 5 Mg Tablet PO 04/26/25 19:59 5 mg
BID SILVANA Administration
Pantoprazole Sodium 40 mg 03/30/25 08:00 03/31/25 10:03
Pantoprazole Sodium 40 Mg/10 Ml Vial IV 04/27/25 07:59 40 mg
BID SILVANA Administration
Sennosides 17.2 mg 03/29/25 22:00 03/30/25 20:39
Sennosides (Senokot) 8.6 Mg Tablet PO 04/26/25 21:59 17.2 mg
HS SILVANA Administration
Sertraline HCl 25 mg 03/30/25 08:00 03/31/25 10:04
Sertraline 25 Mg Tablet PO 04/27/25 07:59 25 mg
DAILY SILVANA Administration
Sodium Chloride 0 flush 03/29/25 20:00 03/31/25 10:05
Sodium Chloride 0.9% (Flush) Syringe IV 04/26/25 19:59 1 flush
PER PROTOCOL SILVANA Administration
Sodium Chloride 10 ml 03/30/25 08:00 03/31/25 10:03
Sodium Chloride 0.9% (Preservative Free) 10 Ml Vial IV 04/27/25 07:59 10 ml
BID SILVANA Administration
Review of Systems
-
History Source: Patient
Constitutional: Reports Fatigue; Denies Weight Loss
Respiratory: Denies Hemoptysis
Cardiac: Denies Chest Pain
GI: Denies Abdominal Pain, Nausea, Diarrhea, Constipated, Bloody Stools, Black Stools, Hemetemesis or GERD
: Denies Bleeding or Vaginal Bleeding
Neuro: Reports Weakness and Lightheadedness
Physical Exam
-
General: Well Nourished, No Apparent Distress and Appears Chronically Ill
HEENT: Negative Jaundice
Cardiology: Irregular Rate/Rhythm and Murmur (soft systolic )
Pulmonary: Clear
GI: Soft; Negative Distended
Extremities: Negative Edema
Neurology: Non Focal and No Lateralizing Symptoms
Hematologic / Lymphatic: No Petechiae
Labs
Lab Results
WBC 7.0 10^3/uL (4.8-10.8) 03/31/25 08:42
RBC 3.50 10^6/uL (4.20-5.40) L 03/31/25 08:42
Hgb 7.4 g/dL (12.0-16.0) L 03/31/25 08:42
Hct 25.2 % (37.0-47.0) L 03/31/25 08:42
MCV 72.0 fL (81.0-99.0) L 03/31/25 08:42
MCH 21.1 pg (27.0-31.0) L 03/31/25 08:42
MCHC 29.4 g/dL (33.0-37.0) L 03/31/25 08:42
RDW 25.2 % (11.5-14.5) H 03/31/25 08:42
Plt Count 170 10^3/uL (130-400) 03/31/25 08:42
MPV Not Reportable 03/31/25 08:42
Abs Immat Gran (auto) 0.0 10^3/uL (0-0.05) 03/30/25 07:44
Absolute Neuts (auto) 4.6 10^3/uL (1.4-6.5) 03/30/25 07:44
Absolute Lymphs (auto) 0.6 10^3/uL (1.2-3.4) L 03/30/25 07:44
Absolute Monos (auto) 0.6 10^3/uL (0.1-0.6) 03/30/25 07:44
Absolute Eos (auto) 0.2 10^3/uL (0-0.7) 03/30/25 07:44
Absolute Basos (auto) 0.1 10^3/uL (0-0.2) 03/30/25 07:44
Immature Gran % 0.5 % (0-0.5) 03/30/25 07:44
Neutrophils % 74.6 % (42.2-75.2) 03/30/25 07:44
Lymphocytes % 10.6 % (20.5-51.1) L 03/30/25 07:44
Monocytes % 10.4 % (1.7-9.3) H 03/30/25 07:44
Eosinophils % 3.0 % (0-6) 03/30/25 07:44
Basophils % 0.8 % (0-2) 03/30/25 07:44
Creatinine 0.9 mg/dL (0.6-1.0) 03/31/25 08:42
Vital Signs
Vital Signs
Temp Pulse Resp BP Pulse Ox
98.1 F 67 18 138/64 94
03/31/25 11:35 03/31/25 11:35 03/31/25 11:35 03/31/25 11:35 03/31/25 11:35
[2025-03-31] MEDS: FERRLECIT 110 MG IV (14:12)
[2025-03-31 16:15] VITALS: BP 141/65
[2025-03-31 16:45] LABS: Glucose - Point of Care 139 mg/dl (70-99)
[2025-03-31] MEDS: LIPITOR 10 MG PO (17:38)
[2025-03-31 18:51] LABS: Reticulocyte Count 2.7 % (0.4-2.8)
[2025-03-31 19:55] VITALS: BP 148/52
[2025-03-31] MEDS: SENOKOT 17.2 MG PO (20:31)
[2025-03-31 21:17] LABS: Glucose - Point of Care 131 mg/dl (70-99)
[2025-03-31 23:21] VITALS: BP 151/52
[2025-04-01] VITALS (9 sets, daily range): BP systolic 122–154; BP diastolic 48–82; PULSE 60–65; O2SAT 91; BMI 31.3
[2025-04-01 07:36] LABS: Glucose - Point of Care 106 mg/dl (70-99)
[2025-04-01 08:05] LABS: Hematocrit 24.5 % (37.0-47.0); Hemoglobin 7.2 g/dL (12.0-16.0); Mean Corp Hgb Conc. 29.4 g/dL (33.0-37.0); Mean Corpuscular Hgb 21.2 pg (27.0-31.0); Mean Corpuscular Volume 72.1 fL (81.0-99.0); Platelet Count 163 10^3/uL (130-400); Red Cell Dist. Width 26.1 % (11.5-14.5); White Blood Cell Count 6.5 10^3/uL (4.8-10.8)
[2025-04-01] MEDS: ZOLOFT 25 MG PO (08:14)
[2025-04-01] MEDS: OSCAL 500 + D 500 MG PO ×2 (08:14→21:29)
[2025-04-01] MEDS: VITAMIN C 500 MG PO (08:14)
[2025-04-01] MEDS: PROTONIX IV 40 MG IV ×2 (08:14→21:29)
[2025-04-01] MEDS: NSS (PRESERVATIVE FREE) 10 ML IV ×2 (08:14→21:29)
[2025-04-01] MEDS: ZESTRIL 5 MG PO ×2 (08:15→21:29)
[2025-04-01] MEDS: PACERONE 100 MG PO (08:16)
[2025-04-01 08:17] LABS: Blood Urea Nitrogen 13 mg/dl (7-17); Calcium 8.3 mg/dl (8.4-10.2); Carbon Dioxide 27 mmol/L (22-30); Chloride 112 mmol/L (98-107); Estimated Creatinine Clearance 46 ml/min; Glucose 93 mg/dl (70-99); LDH 318 U/L (120-246); Potassium 3.4 mmol/L (3.5-5.1); Sodium 142 mmol/L (135-145); eGFR > 60.00
[2025-04-01] MEDS: KCL 20 MEQ PO (08:29)
[2025-04-01 11:48] LABS: Glucose - Point of Care 141 mg/dl (70-99)
--- NOTE | 2025-04-01 12:37 | W.PN.ONC2 ---
Today's Communication / Plan
-
- CBC with slight downtrend however overall stable hgb at 7.2 g/dl.
- continue IV iron.
- if hgb stable tomorrow ok for d/c from hematology standpoint after receiving additional dose of IV iron.
- CBC in 1 week with PCP
- hematology follow up will be arranged.
Impression
Impression
- Severe iron deficiency anemia
- atrial fibrillation on eliquis
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
Plan
Plan
- pt presenting with severe anemia which is new compared to labs in October post-TAVR which, at that time showed possibly a mild anemia developing on pre-op labs with hgb 10-11 g/dl from 12-13 g/dl in july.
- severe MATHIEU with IS 4%, ferritin 6.2 ng/ml. B12, folate normal. pt denies obvious bleeding symptoms. FOBT by GI negative now.
- timing after TAVR with perivalvular leak on post-echo makes intravascular hemolysis potential contributor however T bili normal on admission (slight rise after transfusions). LDH only mildly high at 318, hapto pending, retic normal at 2.7%. low
suspicion for active hemolysis.
- even if stool negative now some bleeding event likely occurred to lead to such a severe anemia over 4-5 months with such severe MATHIEU. Pt and family deferred endoscopic evaluation which I feel is reasonable at her age but may need to be
reconsidered depending on hgb trend/need for repeat transfusions.
- s/p 3 units prbcs and receiving IV iron.
- recommend continuing to hold eliquis for now until know hgb stable. will need to weigh risks and benefits of resuming depending on hgb trend.
- will arrange for hematology follow up for ongoing monitoring and management of anemia.
Subjective/Objective
Chief Complaint
severe MATHIEU
Subjective
pt still very fatigued. Hgb 7.2 g/dl this am. Denies again melena, BRBPR.
Vital Signs:
Vital Signs
Temp Pulse Resp BP Pulse Ox
97.8 F 59 18 128/48 97
04/01/25 11:34 04/01/25 11:34 04/01/25 11:34 04/01/25 11:34 04/01/25 11:34
Lab Results:
Laboratory Data
WBC 6.5 10^3/uL (4.8-10.8) 04/01/25 06:58
Hgb 7.2 g/dL (12.0-16.0) L 04/01/25 06:58
Plt Count 163 10^3/uL (130-400) 04/01/25 06:58
PT 20.9 Sec (11.4-14.6) H 03/29/25 15:30
INR 1.78 03/29/25 15:30
APTT 33.7 Sec (23.4-35.0) 03/29/25 15:30
eGFR > 60.00 04/01/25 06:58
Physical Exam
HEENT: No Jaundice
Cardiology: Irregular rate/rhythm
Pulmonary: Clear
GI: Soft; No Distended
Extremities: No Edema
Neuro: Non Focal
Review of Systems
Review of Systems
Constitutional: Reports Fatigue; Denies Fever
Respiratory: Reports Dyspnea; Denies Cough
Cardiovascular: Denies Chest Pain
Orders
Orders
Orders From Last 24 Hours
03/31/25 22:40
Haptoglobin [S] Routine
[2025-04-01 13:14] LABS: Hematocrit 27.2 % (37.0-47.0); Hemoglobin 7.9 g/dL (12.0-16.0)
[2025-04-01] MEDS: FERRLECIT 110 MG IV (13:35)
--- NOTE | 2025-04-01 14:44 | W.PN.HOSP.TC ---
Today's Communication/Plan
-
possible dc on Wednesday after receiving additional dose of IV iron.
hold Eliquis on discharge.
Assessment / Plan
Assessment / Plan
Impression:
89-year-old female history of A-fib on Eliquis here for symptomatic anemia with hemoglobin of 4 from 11.� No bleeding history, Hemoccult brown and negative.� Seen by GI, recommending hematology evaluation.
Hematology consulted and patient receiving IV iron.
Hemoglobin improved, will be discharged Wednesday after third dose of IV iron.
Assessment/plan:
Severe iron deficiency anemia/acute blood loss anemia
-no rectal bleeding history
-Hemoccult is brown, heme-negative
- Hemoglobin of 4 from 11 previously
-Type and screen
- 3 units of blood
- Protonix 40 IV twice daily
- Hold Eliquis
-Iron study shows evidence of iron deficiency, will give IV iron.
Appreciate GI consult,
03/31
GI signed off since no evidence of GI bleeding currently.
Recommendation to consult hematology for severe iron deficiency anemia.
Continue IV iron.
04/01
Hemoglobin continue to improve, hematology recommending if hgb stable tomorrow ok for d/c after receiving additional dose of IV iron.
hold Eliquis on discharge.
Paroxysmal atrial fibrillation/flutter
-Currently sinus rhythm.
Hold Eliquis
- Continue amiodarone
Hypokalemia.
Replace and keep monitor
Essential hypertension
- Continue lisinopril
Hyperlipidemia
- Continue statin
Type 2 diabetes
- Insulin sliding scale
Anxiety/depression
- Continue sertraline
Lower extremity edema
-Lasix on hold
CODE STATUS: DNR/DNI
DVT prophylaxis: SCDs
Diet: cardiac diet
Disposition: if hgb stable tomorrow ok for d/c after receiving additional dose of IV iron.
hold Eliquis on discharge.
Total time spent on today's encounter was 65 minutes which included time spent in counseling the patient/family regarding diagnosis and treatment plan as listed above, goals of care, and symptom management. Case was discussed with nursing staff,
specialists, and care coordinators/case management. All labs and imaging personally reviewed by me. Remainder the time spent in detailed review of previous records, lab data, imaging, and other medical provider documentation.
Anticipated Discharge: Within 24 hours
Subjective/Interval History
-
Date of Service: April 01, 2025
Patient seen and examined at bedside, denies any chest pain or shortness of breath, no abdominal pain, no nausea, no vomiting, no diarrhea or constipation.
Objective Data
-
Labs:
Laboratory Results
04/01/25 04/01/25
06:58 13:01
WBC 6.5
Hgb 7.2 L 7.9 L
Hct 24.5 L 27.2 L
Plt Count 163
Sodium 142
Potassium 3.4 L
Chloride 112 H
Carbon Dioxide 27
BUN 13
Creatinine 0.8
Glucose 93
Calcium 8.3 L
Vital Signs:
Vital Signs
Temp Pulse Resp BP Pulse Ox
97.8 F 59 18 128/48 97
04/01/25 11:34 04/01/25 11:34 04/01/25 11:34 04/01/25 11:34 04/01/25 11:34
I&O
03/31/25 04/01/25 04/02/25
06:59 06:59 06:59
Intake Total 240 / 240 1060 / 1060
Output Total 303 / 303 400 / 400
Balance -63 / -63 660 / 660
Physical Exam
-
General: Well Developed, Well Nourished, No Apparent Distress and Comfortable
HEENT: Normocephalic, Atraumatic, Moist Mucous Membranes, No Ptosis, PERRLA and Nose Appears Normal
Respiratory: Clear to Auscultation and Non Labored Respirations
Cardiac: Regular Rhythm and S1/S2
Breast: Deferred by me
GI: Soft, Nontender, Nondistended and Normal Bowel Sounds
Genito-urinary: No Costovertebral Tender
Musculoskeletal: No Clubbing, No Cyanosis and No Edema
Skin: Warm
Neuro: Awake, Alert, Oriented, AO x 3 and No Motor Deficits
Psych: Calm
Data Reviewed
-
Diagnostic Radiology: Image personally visualized and interpreted and Report Reviewed by me
CT Scan: Image personally visualized and interpreted and Report Reviewed by me
Ultrasound: Image personally visualized and interpreted and Report Reviewed by me
MRI: Image personally visualized and interpreted and Report Reviewed by me
Medical Tests (Nuc Med, Echo etc): Image personally visualized and interpreted and Report Reviewed by me
Labs: Labs Reviewed by me
Old Records: Reviewed
[2025-04-01 16:54] LABS: Glucose - Point of Care 135 mg/dl (70-99)
[2025-04-01] MEDS: LIPITOR 10 MG PO (18:00)
[2025-04-01] MEDS: SENOKOT PO ×2 (21:30)
[2025-04-01 21:47] LABS: Glucose - Point of Care 113 mg/dl (70-99)
[2025-04-02] VITALS (9 sets, daily range): BP systolic 123–163; BP diastolic 38–66; BMI 31.3
[2025-04-02 07:22] LABS: Glucose - Point of Care 108 mg/dl (70-99)
[2025-04-02 08:02] LABS: Hematocrit 24.1 % (37.0-47.0); Hemoglobin 6.9 g/dL (12.0-16.0); Mean Corp Hgb Conc. 28.6 g/dL (33.0-37.0); Mean Corpuscular Volume 73.5 fL (81.0-99.0); Platelet Count 160 10^3/uL (130-400); Red Blood Cell Count 3.28 10^6/uL (4.20-5.40); Red Cell Dist. Width 27.2 % (11.5-14.5); White Blood Cell Count 6.3 10^3/uL (4.8-10.8)
--- NOTE | 2025-04-02 08:07 | CON.CAR ---
Addendum entered and electronically signed by Jared Sheldon MD 04/02/25 10:18:
89 yo female with PMH of atrial flutter, elevated TAVR gradients admitted with severe symptomatic anemia. Etiology being investigated. SOB and fatigue are better. Exam with RRR, II/ systolic murmur at RUSB, trace LE edema. Tele: SR/SB 50s-60s.
Stop eliquis.
Continue amiodarone.
Echo for TAVR gradients.
Original Note:
Consultation
Consultation Request
Date/Time Consultation Requested: 04/01/25 1544
Date/Time Consultation Performed: 04/02/25 0807
Requesting Provider: Dr. Mathews
Performing Provider: Becky NIELSEN for Dr. Sheldon
Reason for Consultation: severe anemia in patient with AFIB on Eliquis
Medical History
-
Chief Complaint: fatigue, SOB, anemia
History of Present Illness:
89 y/o female (patient of Dr. 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 She has been feeling
fatigued, SOB, and light-headed - she felt 'jet lagged', and OP labs revealed anemia. HGB 4.0 on arrival. Eliquis, of course, is held in this setting. She is s/p 3 units PRBC's. She is feeling improved. There has been no blood in urine or stool. GI
feels not likely GI source and invasive w/u deferred for now. Hematology notes severe MATHIEU and she is getting iron infusions. Of note, she has TAVR with elevated gradients; Heme note reviewed and feels low probability of active hemolysis.
Past Medical History
Past Medical History: Arrhythmias, CHF (likely HFpEF per OP chart), HTN, Hypercholesterolemia, NIDDM and Valvular Disease
Social History
Personal:
Living: Other (Lives at [facility] )
Family History
Family History: Reviewed & Not Pertinent
Allergies / Home Medications
Allergy/AdvReac Type Severity Reaction Status Date / Time
codeine [Codeine] Allergy Unknown Verified 03/29/25 15:15
Sulfa (Sulfonamide Allergy Unknown Verified 03/29/25 15:15
Antibiotics)
�Medication �Instructions �Recorded �Confirmed �Type
ascorbic acid (vitamin C) 500 mg 500 mg PO DAILY supplement 07/24/23 03/29/25 History
tablet (Vitamin C)
atorvastatin 10 mg tablet 10 mg PO QPM 30 days #0 tabs 07/30/23 03/29/25 Rx
furosemide 20 mg tablet 20 mg PO MOWEFR Fluid 02/03/24 03/29/25 History
Retention/Swelling
lisinopril 5 mg tablet 5 mg PO BID Blood Pressure 02/03/24 03/29/25 History
cyanocobalamin (vitamin B-12) 1,000 mcg PO MO Supplement 09/06/24 03/29/25 History
1,000 mcg tablet (Vitamin B-12)
sertraline 25 mg tablet 25 mg PO DAILY Mental 09/06/24 03/29/25 History
Health/Anxiety
calcium 200 mg (as 2 tab PO BID Supplement 10/09/24 03/29/25 History
citrate)-vitamin D3 6.25 mcg (250
unit) tablet (Citracal-D3 Petites)
sennosides 8.6 mg capsule (senna) 17.2 mg PO HS Gastrointestinal 10/19/24 03/29/25 History
Issue
amiodarone 100 mg tablet 100 mg PO DAILY #30 tabs 10/20/24 03/29/25 Rx
acetaminophen 325 mg tablet 650 mg PO Q6HPRN PRN MILD PAIN 03/29/25 03/29/25 History
apixaban 5 mg tablet (Eliquis) 5 mg PO BID Blood Clot 03/30/25 03/29/25 History
Prevention/Tx
Review of Systems
-
History Source: Patient
All other systems: Negative unless noted
Constitutional: Fatigue and Other (light-headed, jet lagged feeling)
Respiratory: Trouble Breathing
Physical Exam
Vital Signs
Temp Pulse Resp BP Pulse Ox
97.6 F 64 18 132/47 95
04/02/25 03:36 04/02/25 03:36 04/02/25 03:36 04/02/25 03:41 04/02/25 03:36
Lab Results
04/02/25 07:08
Troponin I 0.066 ng/ml H* 03/29/25 15:31
Physical Exam
General: Well Developed, Well Nourished and No Apparent Distress
HEENT: Normocephalic and Anicteric
Respiratory: Clear and Non Labored Respirations
Cardiac: Regular Rhythm and Murmur (II/ systolic)
Musculoskeletal: Edema (mild BLE edema)
Skin: Warm and Dry
Neuro: AO x 3
Psych: Calm
Impression / Plan
-
Severe Anemia:
-s/p 3 units PRBC's
-GI and heme following and notes reviewed: GI feels not likely GI source and invasive w/u deferred for now. Hematology notes severe MATHIEU and she is getting iron infusions. Of note, she has TAVR with elevated gradients; Heme note reviewed and feels
low probability of active hemolysis.
-hgb down again today- management per primary- getting another unit today
Atrial flutter:
-stable in SR
-continue amiodarone
-on Eliquis as OP, but now held with severe anemia hgb 4.0 on arrival. [id number] score is 6 for age, female, HTN, HFpEF (likely per OP chart), and DM (diet controlled per OP chart). She is on Eliquis for OAC, but now with severe anemia it needs to
be held.
s/p TAVR:
-elevated gradients post TAVR: Echo 12/11/24: EF 60-65%. Moderate mitral regurgitation. 23 mm Ojeda Dante TAVR. The peak/mean gradients across the valve are elevated: 60/33 mmHg. Mild/moderate paravalvular regurgitation. Mild/moderate tricuspid
regurgitation. Severely elevated PASP. Estimated pulmonary artery pressure of 66 mmHg assuming a right atrial pressure of 15 mmHg. Compared to 11/21/24: prior TAVR gradients were 51/25 mmHg, with mild/moderate paravalvular regurgitation. Moderate MR
is stable. Mild/moderate TR is stable. PASP is similar (prior 68 mmHg).
-CT scan 12/18/24: Examination was performed after transcatheter aortic valve replacement, with concern for HALT. Degree of contrast opacification is slightly suboptimal. There is no scan evidence for valve leaflet thickening, with no findings to
suggest HALT.
-update echo
HTN:
-follow
LE edema, likely HFpEF per chart: chronic
-on lasix- continue
Data Reviewed
-
EKG: Tracing Personally Visualized and interpreted (NSR, no acute change to my review)
CT Scan: Report Reviewed by me (as noted)
Medical Tests (Nuc Med, Echo etc): Report Reviewed by me (echo as noted)
Labs: Labs Reviewed by me
[2025-04-02 08:17] LABS: Blood Urea Nitrogen 12 mg/dl (7-17); Calcium 8.2 mg/dl (8.4-10.2); Carbon Dioxide 24 mmol/L (22-30); Chloride 113 mmol/L (98-107); Estimated Creatinine Clearance 46 ml/min; Glucose 88 mg/dl (70-99); Sodium 141 mmol/L (135-145); eGFR > 60.00
[2025-04-02] MEDS: PACERONE 100 MG PO (09:05)
[2025-04-02] MEDS: LASIX 20 MG PO (09:06)
[2025-04-02] MEDS: OSCAL 500 + D 500 MG PO ×2 (09:06→20:48)
[2025-04-02] MEDS: VITAMIN C 500 MG PO (09:06)
[2025-04-02] MEDS: ZOLOFT 25 MG PO (09:06)
[2025-04-02] MEDS: ZESTRIL 5 MG PO ×2 (09:07→20:47)
[2025-04-02] MEDS: PROTONIX IV 40 MG IV ×2 (09:07→20:47)
[2025-04-02] MEDS: NSS (PRESERVATIVE FREE) 10 ML IV ×2 (09:08→20:47)
[2025-04-02] MEDS: DESENEX/MITRAZOL/ZEASORB 1 APPLIC TOPICAL ×2 (09:17→20:48)
[2025-04-02] MEDS: VITAMIN B-12 1000 MCG PO (11:10)
[2025-04-02 11:11] LABS: Glucose - Point of Care 122 mg/dl (70-99)
--- NOTE | 2025-04-02 12:56 | W.PN.HOSP.TC ---
Today's Communication/Plan
-
1 unit PRBC
IV iron
Follow-up TTE
Trend CBC
Assessment / Plan
Assessment / Plan
#Severe iron deficiency anemia
#Acute blood loss anemia (?)
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
-S/p 3 units of PRBC prior to 04/02; initial hemoglobin 4.0 which was a significant drop from previous baseline near 11.0
-Patient was previously on Eliquis which has since been discontinued; Hemoccult negative, LFTs WNL, mildly elevated LDH
-Did have significant iron deficiency on previous iron studies, started on IV iron day 12/20
-CBC morning of 04/02 showed hemoglobin drop from 7.7-6.9
-Ordered 1 unit PRBC, will make 4U total on this hospital stay
-Follow-up TTE for signs of critical of TAVR which may indicate Heyde syndrome
-Continue to trend CBC and transfuse for Hgb <7 or present symptoms
-Continue with IV iron while hospitalized, plan for p.o. at discharge
-Discontinued Eliquis
#Paroxysmal atrial fibrillation/flutter
-Currently sinus rhythm
-Continue amiodarone
-DC eliquis due to severe MATHIEU
#CKD stage IIIa
-Baseline creatinine near 0.8-1.0, GFR mid 40s to 50s
-Creatinine has been stable here
#Hypokalemia.
-Replace and monitor
#Essential hypertension
-Continue lisinopril
#Hyperlipidemia
-Continue statin
#Type 2 diabetes
-Insulin sliding scale
#Anxiety/depression
-Continue sertraline
#Lower extremity edema
-Lasix on hold due to severe anemia
CODE STATUS: DNR/DNI
DVT prophylaxis: SCDs
Diet: cardiac diet
Anticipated Discharge: 24 - 48 hours
Subjective/Interval History
-
Date of Service: April 02, 2025
Seen and examined at the bedside. No acute events reported overnight. AFVSS this morning. Subsequently did have brief episode of heart rate 160 per telemetry though appears artifactual
Hemoglobin dropped from 7.7-6.9 overnight. Additional unit of PRBC ordered. Cardiology planning for echo
Patient denies any complaints today
Objective Data
-
Labs:
Laboratory Results
04/02/25 04/02/25
07:08 20:00
WBC 6.3
Hgb 6.9 L* Pending
Hct 24.1 L Pending
Plt Count 160
Sodium 141
Potassium 4.0
Chloride 113 H
Carbon Dioxide 24
BUN 12
Creatinine 0.8
Glucose 88
Calcium 8.2 L
Vital Signs:
Vital Signs
Temp Pulse Resp BP Pulse Ox
98.2 F 60 18 147/50 97
04/02/25 12:40 04/02/25 12:40 04/02/25 12:40 04/02/25 12:40 04/02/25 12:40
I&O
04/01/25 04/02/25 04/03/25
06:59 06:59 06:59
Intake Total 1060 / 1060 480 / 480 0 / 0
Output Total 400 / 400
Balance 660 / 660 480 / 480 0 / 0
Review of Systems
-
History Source: Patient
All other systems: Reviewed and negative
Physical Exam
-
General: Well Developed, Well Nourished, No Apparent Distress and Other (Frail-appearing)
HEENT: Normocephalic, Atraumatic, Moist Mucous Membranes and Anicteric
Respiratory: Clear to Auscultation and Non Labored Respirations; Negative Accessory Resp Muscle Use
Cardiac: Regular Rhythm, S1/S2, Murmur and Carotid Pulses (WNL); Negative Rub, JVD or Gallop
GI: Soft, Nontender, Nondistended and Normal Bowel Sounds
Musculoskeletal: No Clubbing, No Cyanosis and No Edema
Skin: Warm, Dry and Normal Turgor; Negative Rash or Jaundice
Neuro: AO x 3 and Nonfocal/Grossly Intact; Negative Tremors
Psych: Calm
Data Reviewed
-
Labs: Labs Reviewed by me, Discussed with Nurse and Discussed with Patient
--- NOTE | 2025-04-02 13:41 | CM ---
Chart reviewed. Care ongoing at this time. Lives at [facility] w/ spouse
Cont IV iron, will transition to po at d/c
Plan: return to [facility] when stable
[2025-04-02 15:32] LABS: Haptoglobin 142 mg/dL (30-200)
[2025-04-02] MEDS: FERRLECIT 110 MG IV (16:45)
[2025-04-02 16:49] LABS: Glucose - Point of Care 130 mg/dl (70-99)
[2025-04-02] MEDS: LIPITOR 10 MG PO (18:18)
[2025-04-02 20:34] LABS: Hematocrit 29.9 % (37.0-47.0); Hemoglobin 8.9 g/dL (12.0-16.0)
[2025-04-02] MEDS: SENOKOT 17.2 MG PO (20:48)
[2025-04-02 21:40] LABS: Glucose - Point of Care 125 mg/dl (70-99)
[2025-04-03] VITALS (7 sets, daily range): BP systolic 132–160; BP diastolic 51–64; BMI 31.0
[2025-04-03 08:05] LABS: Glucose - Point of Care 110 mg/dl (70-99)
[2025-04-03] MEDS: PROTONIX IV 40 MG IV (08:07)
[2025-04-03] MEDS: NSS (PRESERVATIVE FREE) 10 ML IV (08:07)
[2025-04-03] MEDS: VITAMIN C 500 MG PO (08:08)
[2025-04-03] MEDS: ZESTRIL 5 MG PO ×2 (08:08→20:16)
[2025-04-03] MEDS: PACERONE 100 MG PO (08:08)
[2025-04-03] MEDS: OSCAL 500 + D 500 MG PO ×2 (08:08→20:16)
[2025-04-03] MEDS: ZOLOFT 25 MG PO (08:08)
[2025-04-03] MEDS: DESENEX/MITRAZOL/ZEASORB 1 APPLIC TOPICAL ×2 (08:10→20:15)
--- NOTE | 2025-04-03 09:16 | W.PN.CD ---
Today's Communication / Plan
-
Hold AC indefinitely
Will discuss Watchman outpatient
Continue PO Lasix MWF. Monitor for volume overload with ongoing transfusion requirements
Impression / Plan
-
Severe Anemia:
-s/p 4 units PRBC's
-GI and heme following and notes reviewed: GI feels not likely GI source and invasive w/u deferred for now. Hematology notes severe MATHIEU and she is getting iron infusions. Of note, she has TAVR with elevated gradients; Heme note reviewed and feels
low probability of active hemolysis.
-hgb this AM pending
Atrial flutter:
-stable in SR
-continue amiodarone
-on Eliquis as OP, but now held with severe anemia hgb 4.0 on arrival.
-[id number] score is 6 for age, female, HTN, HFpEF (likely per OP chart), and DM (diet controlled per OP chart)
-Hold AC indefinitely. Will discuss Watchman as outpatient
LE edema, likely HFpEF per chart: chronic
-Lungs are clear with stable weight. Chronic LE edema
-Continue home PO Lasix 20mg MWF
-Monitor closely for volume overload given ongoing transfusion requirements
Severe mitral regurgitation
-TTE 04/02/25: LVEF 55-60%, severe MR, TAVR 39/19 mmHg, mild/mod paravalvular AR, mod TR, PASP 62 mmHg
-Unclear if symptomatic given confounding anemia
-Continue diuresis with PO Lasix MWF
-Will reassess as outpatient
s/p TAVR:
-TTE 04/02/25: LVEF 55-60%, severe MR, TAVR 39/19 mmHg, mild/mod paravalvular AR, mod TR, PASP 62 mmHg
-CT scan 12/18/24: Examination was performed after transcatheter aortic valve replacement, with concern for HALT. Degree of contrast opacification is slightly suboptimal. There is no scan evidence for valve leaflet thickening, with no findings to
suggest HALT.
HTN:
-follow
-continue ACEi
Subjective: Feels improved compared to admission. No SOB at rest.
Physical Exam
Vital Signs/Labs
Vital Signs
Temp Pulse Resp BP Pulse Ox
97.9 F 67 17 132/56 91
04/03/25 07:15 04/03/25 08:08 04/03/25 07:15 04/03/25 08:08 04/03/25 07:15
04/02/25 04/03/25 04/04/25
06:59 06:59 06:59
Actual Weight 171 lb 1 oz 169 lb 3 oz
04/02/25 20:10
04/02/25 07:08
PT 20.9 Sec (11.4-14.6) H 03/29/25 15:30
INR 1.78 03/29/25 15:30
APTT 33.7 Sec (23.4-35.0) 03/29/25 15:30
Physical Exam
Constitutional: No acute distress and Comfortable
Cardiovascular: Rhythm/rate is irregular, Pedal edema present and Systolic murmur present
Respiratory: Respiratory effort normal and Lungs clear to auscul.
Data Reviewed
-
Date of Service: April 03, 2025
Medical Decision Making: Reviewed Test Results, Independent Historian Assessment, Test Interpretation and Review of Case with other Provider
EKG: Tracing Personally Visualized and interpreted
Echo: Report Reviewed by me
X-Ray/CT/US/MRI/NUC/PET: Report Reviewed by me
Labs: Labs Reviewed by me
[2025-04-03 10:16] LABS: Hemoglobin 8.7 g/dL (12.0-16.0)
[2025-04-03 11:57] LABS: Glucose - Point of Care 112 mg/dl (70-99)
[2025-04-03] MEDS: FERRLECIT 110 MG IV (15:02)
--- NOTE | 2025-04-03 15:47 | W.PN.HOSP.TC ---
Today's Communication/Plan
-
monitor hgb additional day
lasix
iv iron
Assessment / Plan
Assessment / Plan
#Severe iron deficiency anemia
#Acute blood loss anemia (?)
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
-S/p 3 units of PRBC prior to 04/02; initial hemoglobin 4.0 which was a significant drop from previous baseline near 11.0
-Patient was previously on Eliquis which has since been discontinued; Hemoccult negative, LFTs WNL, mildly elevated LDH
-Did have significant iron deficiency on previous iron studies, started on IV iron day 12/20
-CBC morning of 04/02 showed hemoglobin drop from 7.7-6.9
-Ordered 1 unit PRBC on 04/02, will make 4U total on this hospital stay; i suspect 6.9 was spurious
-ECHO - severe MR;
-Continue to trend CBC and transfuse for Hgb <7 or present symptoms
-Continue with IV iron while hospitalized, plan for p.o. at discharge
-Discontinued Eliquis
#Paroxysmal atrial fibrillation/flutter
-Currently sinus rhythm
-Continue amiodarone
-DC eliquis due to severe MATHIEU
#CKD stage IIIa
-Baseline creatinine near 0.8-1.0, GFR mid 40s to 50s
-Creatinine has been stable here
#Hypokalemia.
-Replace and monitor
#Essential hypertension
-Continue lisinopril
#Hyperlipidemia
-Continue statin
#Type 2 diabetes
-Insulin sliding scale
#Anxiety/depression
-Continue sertraline
#Lower extremity edema
-Continue PO Lasix MWF. Monitor for volume overload with ongoing transfusion requirements
CODE STATUS: DNR/DNI
DVT prophylaxis: SCDs
Diet: cardiac diet
Anticipated Discharge: Within 24 hours
Subjective/Interval History
-
Date of Service: April 03, 2025
No acute events
Objective Data
-
Labs:
Laboratory Results
04/03/25
09:51
Hgb 8.7 L
Vital Signs:
Vital Signs
Temp Pulse Resp BP Pulse Ox
97.9 F 61 16 149/64 94
04/03/25 15:00 04/03/25 15:00 04/03/25 15:00 04/03/25 15:00 04/03/25 15:00
I&O
04/02/25 04/03/25 04/04/25
06:59 06:59 06:59
Intake Total 480 / 480 1690 / 1690
Balance 480 / 480 1690 / 1690
Review of Systems
-
History Source: Patient
All other systems: Not reviewed unless documented
Data Reviewed
-
Labs: Labs Reviewed by me, Discussed with Nurse and Discussed with Patient
[2025-04-03] MEDS: TYLENOL 650 MG PO (16:07)
[2025-04-03 16:14] LABS: Glucose - Point of Care 148 mg/dl (70-99)
[2025-04-03] MEDS: LIPITOR 10 MG PO (18:21)
[2025-04-03] MEDS: SENOKOT PO (20:15)
[2025-04-03] MEDS: PROTONIX 40 MG PO (20:16)
--- NOTE | 2025-04-03 20:47 | W.PN.UPDATE ---
Update Note
Progress Note Update
Patient is complaining of sob, Spo2 95% RA, bp 140/55,hr 68. afebrile. Rita chest pain.
chest x-ray, cbc, covid, flu and neb treatment ordered.
Diminished lung sounds on exam.
-Covid & Flu (Neg)
-chest X-ray shows Interval increase in diffuse interstitial markings, suggestive of diffuse interstitial edema pattern. Small bilateral pleural effusions.
-Recheck on the patient, she feels better after neb treatment.
[2025-04-03 21:27] LABS: Hematocrit 30.3 % (37.0-47.0); Hemoglobin 8.9 g/dL (12.0-16.0); Mean Corp Hgb Conc. 29.4 g/dL (33.0-37.0); Mean Corpuscular Hgb 22.7 pg (27.0-31.0); Mean Corpuscular Volume 77.3 fL (81.0-99.0); Mean Platelet Volume 10.6 fL (7.4-10.4); Platelet Count 164 10^3/uL (130-400); Red Blood Cell Count 3.92 10^6/uL (4.20-5.40); Red Cell Dist. Width 29.2 % (11.5-14.5); White Blood Cell Count 7.6 10^3/uL (4.8-10.8)
--- NOTE | 2025-04-03 21:30 | PTCARENOTE ---
pt with audible wheezing on exam, HADLEY and dyspnea at rest. crackles auscultated in bilateral lung bases. BP 160/51, HR 61, afebrile, RR 18, pulse ox 95% on RA. [facility] PRESSER made aware. new orders for PRN duoneb q4, stat covid/flu swabs, portable CXR, and
CBC ordered. duoneb administered per RT, covid/flu negative, CBC unremarkable (hgb resulted 8.9). pt states 'since my TAVR i have been short of breath'. will continue to monitor closely.
[2025-04-03 21:35] LABS: COVID-19 Antigen Negative (Negative)
[2025-04-03 21:46] LABS: Glucose - Point of Care 136 mg/dl (70-99)
[2025-04-03] MEDS: DUONEB 3 ML INH (22:17)
[2025-04-04 03:16] VITALS: BP 150/48
[2025-04-04 06:00] VITALS: BMI 31.2
[2025-04-04 07:30] VITALS: BP 163/63
[2025-04-04 07:42] LABS: Glucose - Point of Care 114 mg/dl (70-99)
[2025-04-04 07:47] LABS: Hematocrit 28.9 % (37.0-47.0); Hemoglobin 8.3 g/dL (12.0-16.0); Mean Corp Hgb Conc. 28.7 g/dL (33.0-37.0); Mean Corpuscular Hgb 22.4 pg (27.0-31.0); Mean Corpuscular Volume 78.1 fL (81.0-99.0); Platelet Count 154 10^3/uL (130-400); Red Cell Dist. Width 29.5 % (11.5-14.5); White Blood Cell Count 6.4 10^3/uL (4.8-10.8)
[2025-04-04 08:12] LABS: Blood Urea Nitrogen 11 mg/dl (7-17); Calcium 8.5 mg/dl (8.4-10.2); Carbon Dioxide 25 mmol/L (22-30); Chloride 112 mmol/L (98-107); Estimated Creatinine Clearance 46 ml/min; Glucose 89 mg/dl (70-99); Potassium 3.9 mmol/L (3.5-5.1); Sodium 144 mmol/L (135-145); eGFR > 60.00
--- NOTE | 2025-04-04 08:19 | W.PN.CD ---
Today's Communication / Plan
-
Start 20 mg IV Lasix twice daily now
Monitor response
Follow creatinine and electrolytes closely
Discharge planning hopefully for tomorrow
Impression / Plan
-
Severe Anemia:
-s/p 4 units PRBC's
-GI and heme following and notes reviewed: GI feels not likely GI source and invasive w/u deferred for now. Hematology notes severe MATHIEU and she is getting iron infusions. Of note, she has TAVR with elevated gradients; Heme note reviewed and feels
low probability of active hemolysis.
Atrial flutter:
-stable in SR
-continue amiodarone
-on Eliquis as OP, but now held with severe anemia hgb 4.0 on arrival.
-[id number] score is 6 for age, female, HTN, HFpEF (likely per OP chart), and DM (diet controlled per OP chart)
-Hold AC indefinitely. Will discuss Watchman as outpatient
HFpEF: Acute on chronic, likely secondary to severe anemia and iatrogenic volume overload.
-Chest x-ray consistent with pulmonary edema
-Lungs are clear with stable weight. Chronic LE edema
- will increase to IV Lasix 20 mg wice daily. Will require intensive monitoring of lytes, cr and bp
Severe mitral regurgitation
-TTE 04/02/25: LVEF 55-60%, severe MR, TAVR 39/19 mmHg, mild/mod paravalvular AR, mod TR, PASP 62 mmHg
-Unclear if symptomatic given confounding anemia
-Continue diuresis with PO Lasix MWF
-Will reassess as outpatient
s/p TAVR:
-TTE 04/02/25: LVEF 55-60%, severe MR, TAVR 39/19 mmHg, mild/mod paravalvular AR, mod TR, PASP 62 mmHg
-CT scan 12/18/24: Examination was performed after transcatheter aortic valve replacement, with concern for HALT. Degree of contrast opacification is slightly suboptimal. There is no scan evidence for valve leaflet thickening, with no findings to
suggest HALT.
HTN:
-follow
-continue ACEi
Subjective: Last night, daughter was visiting concerned about increased shortness of breath. Chest x-ray was done showed pulmonary edema. She was ruled out for she denies any orthopnea but has been sleeping in a chair at home. Flu and COVID.
Feeling a bit better since admission but still with dyspnea.
Physical Exam
Vital Signs/Labs
Vital Signs
Temp Pulse Resp BP Pulse Ox
98.0 F 67 18 150/48 95
04/04/25 03:16 04/04/25 03:16 04/04/25 03:16 04/04/25 03:16 04/04/25 03:16
04/03/25 04/04/25 04/05/25
06:59 06:59 06:59
Actual Weight 169 lb 3 oz 170 lb 4 oz
04/04/25 07:01
04/04/25 07:01
PT 20.9 Sec (11.4-14.6) H 03/29/25 15:30
INR 1.78 03/29/25 15:30
APTT 33.7 Sec (23.4-35.0) 03/29/25 15:30
Physical Exam
Constitutional: No acute distress and Comfortable
Cardiovascular: Rhythm & rate is regular, Pedal edema present (tubigrips in place, 1+ pitting some element on nonpitting), JVD present (vwave present) and Systolic murmur present
Respiratory: Crackles Present (to mid field worse in the right mid lung field)
Neuro/Psych: AO x 3
Data Reviewed
-
Date of Service: April 04, 2025
Medical Decision Making: Review of Case with other Provider (Dr Lange, needs some IV diuresis)
X-Ray/CT/US/MRI/NUC/PET: Image Personally Visualized and interpreted (diffuse interstitial edema and pleural effusion)
[2025-04-04] MEDS: PACERONE 100 MG PO (08:32)
[2025-04-04] MEDS: VITAMIN C 500 MG PO (08:32)
[2025-04-04] MEDS: LASIX 20 MG PO (08:32)
[2025-04-04] MEDS: OSCAL 500 + D 500 MG PO ×2 (08:32→20:21)
[2025-04-04] MEDS: PROTONIX 40 MG PO ×2 (08:32→20:21)
[2025-04-04] MEDS: ZOLOFT 25 MG PO (08:32)
[2025-04-04] MEDS: ZESTRIL 5 MG PO ×2 (08:32→20:21)
[2025-04-04] MEDS: DESENEX/MITRAZOL/ZEASORB 1 APPLIC TOPICAL ×2 (09:29→20:19)
[2025-04-04] MEDS: LASIX 20 MG IV ×2 (09:30→16:57)
--- NOTE | 2025-04-04 10:34 | CM ---
Chart reviewed. Patient care ongoing.
Cardio following, cont IV Lasix, hopeful d/c tomorrow
Therapy rec home PT at d/c
Plan: Return home at [facility] w/ home PT
[2025-04-04 11:35] VITALS: BP 162/75
[2025-04-04 11:44] LABS: Glucose - Point of Care 123 mg/dl (70-99)
--- NOTE | 2025-04-04 13:26 | W.PN.HOSP.TC ---
Today's Communication/Plan
-
iv lasix today
monitor cbc
Assessment / Plan
Assessment / Plan
#Severe iron deficiency anemia
#Acute blood loss anemia (?)
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
-S/p 3 units of PRBC prior to 04/02; initial hemoglobin 4.0 which was a significant drop from previous baseline near 11.0
-Patient was previously on Eliquis which has since been discontinued; Hemoccult negative, LFTs WNL, mildly elevated LDH
-Did have significant iron deficiency on previous iron studies, started on IV iron day 12/20
-CBC morning of 04/02 showed hemoglobin drop from 7.7-6.9
-Ordered 1 unit PRBC on 04/02, will make 4U total on this hospital stay; i suspect 6.9 was spurious
-ECHO - severe MR;
-Continue to trend CBC and transfuse for Hgb <7 or present symptoms
-Continue with IV iron while hospitalized, plan for p.o. at discharge
-Discontinued Eliquis
#Paroxysmal atrial fibrillation/flutter
-Currently sinus rhythm
-Continue amiodarone
-DC eliquis due to severe MATHIEU
#CKD stage IIIa
-Baseline creatinine near 0.8-1.0, GFR mid 40s to 50s
-Creatinine has been stable here
#Hypokalemia.
-Replace and monitor
#Essential hypertension
-Continue lisinopril
#Hyperlipidemia
-Continue statin
#Type 2 diabetes
-Insulin sliding scale
#Anxiety/depression
-Continue sertraline
#Acute HFpEF
#Lower extremity edema
-IV lasix today - worsened with transfusions
-On Continue PO Lasix MWF. Monitor for volume overload with ongoing transfusion requirements
CODE STATUS: DNR/DNI
DVT prophylaxis: SCDs
Diet: cardiac diet
Anticipated Discharge: Within 24 hours
Subjective/Interval History
-
Date of Service: April 04, 2025
sob overnight, appeared to be in volume overload
Objective Data
-
Labs:
Laboratory Results
04/04/25
07:01
WBC 6.4
Hgb 8.3 L
Hct 28.9 L
Plt Count 154
Sodium 144
Potassium 3.9
Chloride 112 H
Carbon Dioxide 25
BUN 11
Creatinine 0.8
Glucose 89
Calcium 8.5
Vital Signs:
Vital Signs
Temp Pulse Resp BP Pulse Ox
97.7 F 57 18 162/75 98
04/04/25 11:35 04/04/25 11:35 04/04/25 11:35 04/04/25 11:35 04/04/25 11:35
I&O
04/03/25 04/04/25 04/05/25
06:59 06:59 06:59
Intake Total 1690 / 1690 610 / 610 480 / 480
Output Total 700 / 700
Balance 1690 / 1690 610 / 610 -220 / -220
Review of Systems
-
History Source: Patient
All other systems: Not reviewed unless documented
Physical Exam
-
General: Well Developed, Well Nourished, No Apparent Distress and Other (Frail-appearing)
HEENT: Normocephalic, Atraumatic, Moist Mucous Membranes and Anicteric
Respiratory: Clear to Auscultation and Non Labored Respirations; Negative Accessory Resp Muscle Use
Cardiac: Regular Rhythm, S1/S2, Murmur and Carotid Pulses (WNL); Negative Rub, JVD or Gallop
GI: Soft, Nontender, Nondistended and Normal Bowel Sounds
Musculoskeletal: No Clubbing, No Cyanosis and No Edema
Skin: Warm, Dry and Normal Turgor; Negative Rash or Jaundice
Neuro: AO x 3 and Nonfocal/Grossly Intact; Negative Tremors
Psych: Calm
[2025-04-04] MEDS: FERRLECIT 110 MG IV (14:08)
[2025-04-04] MEDS: TYLENOL 650 MG PO (14:44)
[2025-04-04 15:25] VITALS: BP 160/62
[2025-04-04 16:49] LABS: Glucose - Point of Care 149 mg/dl (70-99)
[2025-04-04] MEDS: LIPITOR 10 MG PO (16:57)
[2025-04-04 19:32] VITALS: BP 150/55
[2025-04-04] MEDS: SENOKOT 17.2 MG PO (20:21)
[2025-04-04 21:35] LABS: Glucose - Point of Care 101 mg/dl (70-99)
[2025-04-04 23:49] VITALS: BP 147/47
[2025-04-05 03:45] VITALS: BP 138/63
[2025-04-05 04:15] VITALS: BP 127/55
--- NOTE | 2025-04-05 04:34 | PTCARENOTE ---
pt converted from sinus cortez to afib at 0400. EKG completed, confirming afib rhythm. VSS- afebrile 98.2, HR 105, BP 127/55, RR 16, 92% on RA. HR maintaining 90s- 100s on tele. CTRS notified- mag level added to AM labs. will continue to monitor pt
closely.
[2025-04-05 06:00] VITALS: BMI 29.4
[2025-04-05 07:49] VITALS: BP 126/55
[2025-04-05 07:56] LABS: Blood Urea Nitrogen 11 mg/dl (7-17); Calcium 8.2 mg/dl (8.4-10.2); Carbon Dioxide 31 mmol/L (22-30); Chloride 109 mmol/L (98-107); Estimated Creatinine Clearance 45 ml/min; Glucose 89 mg/dl (70-99); Magnesium 1.9 mg/dl (1.6-2.3); Potassium 3.3 mmol/L (3.5-5.1); Sodium 144 mmol/L (135-145); eGFR > 60.00
[2025-04-05 07:58] LABS: Hematocrit 29.7 % (37.0-47.0); Hemoglobin 8.6 g/dL (12.0-16.0); Mean Corpuscular Hgb 22.6 pg (27.0-31.0); Mean Corpuscular Volume 78.2 fL (81.0-99.0); Platelet Count 155 10^3/uL (130-400); Red Cell Dist. Width 30.9 % (11.5-14.5); White Blood Cell Count 6.5 10^3/uL (4.8-10.8)
[2025-04-05 08:08] LABS: Glucose - Point of Care 112 mg/dl (70-99)
[2025-04-05] MEDS: DESENEX/MITRAZOL/ZEASORB 1 APPLIC TOPICAL (08:15)
[2025-04-05] MEDS: PROTONIX 40 MG PO (08:51)
[2025-04-05] MEDS: VITAMIN C 500 MG PO (08:51)
[2025-04-05] MEDS: PACERONE 100 MG PO (08:52)
[2025-04-05] MEDS: ZOLOFT 25 MG PO (08:52)
[2025-04-05] MEDS: ZESTRIL 5 MG PO (08:52)
[2025-04-05] MEDS: FEOSOL 325 MG PO (08:52)
[2025-04-05] MEDS: OSCAL 500 + D 500 MG PO (08:52)
[2025-04-05] MEDS: LASIX 20 MG IV (08:53)
--- NOTE | 2025-04-05 09:10 | W.PN.CD ---
Today's Communication / Plan
-
start metoprolol 12.5mg po bid
transition back to typical lasix regimen of MWF
ics
ok to discharge from cardiac perspective
I will sign off
Impression / Plan
-
Severe Anemia:
-s/p 4 units PRBC's
-GI and heme following and notes reviewed: GI feels not likely GI source and invasive w/u deferred for now. Hematology notes severe MATHIEU and she is getting iron infusions. Of note, she has TAVR with elevated gradients; Heme note reviewed and feels
low probability of active hemolysis.
Atrial flutter:
-now in AF, will need to rate control as doac not an option currently
-continue amiodarone, will add a low dose bb
-on Eliquis as OP, but now held with severe anemia hgb 4.0 on arrival.
-[id number] score is 6 for age, female, HTN, HFpEF (likely per OP chart), and DM (diet controlled per OP chart)
-Hold AC indefinitely. Will discuss [facility] as outpatient
HFpEF: Acute on chronic, likely secondary to severe anemia and iatrogenic volume overload.
-improved, will need to reweigh
-has some atelectasis, ICS ordered
Severe mitral regurgitation
-TTE 04/02/25: LVEF 55-60%, severe MR, TAVR 39/19 mmHg, mild/mod paravalvular AR, mod TR, PASP 62 mmHg
-Unclear if symptomatic given confounding anemia
-Continue diuresis with PO Lasix MWF on discharge
-Will reassess as outpatient
s/p TAVR:
-TTE 04/02/25: LVEF 55-60%, severe MR, TAVR 39/19 mmHg, mild/mod paravalvular AR, mod TR, PASP 62 mmHg
-CT scan 12/18/24: Examination was performed after transcatheter aortic valve replacement, with concern for HALT. Degree of contrast opacification is slightly suboptimal. There is no scan evidence for valve leaflet thickening, with no findings to
suggest HALT.
HTN:
-follow
-continue ACEi
Subjective: feeling better, less orthopnea, no dizziness or palpitations.
Physical Exam
Vital Signs/Labs
Vital Signs
Temp Pulse Resp BP Pulse Ox
98.3 F 100 20 126/60 96
04/05/25 07:49 04/05/25 08:53 04/05/25 07:49 04/05/25 08:53 04/05/25 07:49
04/04/25 04/05/25 04/06/25
06:59 06:59 06:59
Actual Weight 170 lb 4 oz 160 lb 6 oz
04/05/25 07:04
04/05/25 07:04
PT 20.9 Sec (11.4-14.6) H 03/29/25 15:30
INR 1.78 03/29/25 15:30
APTT 33.7 Sec (23.4-35.0) 03/29/25 15:30
Magnesium 1.9 mg/dl (1.6-2.3) 04/05/25 07:04
Physical Exam
Constitutional: No acute distress
Cardiovascular: JVD pressure is normal, Diastolic murmur absent, Rhythm/rate is irregular and Pedal edema present (soft )
Respiratory: Respiratory effort normal and Crackles Present (then clear with coughing)
Neuro/Psych: AO x 3
Data Reviewed
-
Date of Service: April 05, 2025
[2025-04-05] MEDS: KCL ELIXIR 40 MEQ PO (09:41)
[2025-04-05] MEDS: LOPRESSOR 12.5 MG PO (10:10)
--- NOTE | 2025-04-05 10:38 | CM ---
Patient likely stable for d/c today per hospitalist
Therapy rec home PT.
Attempted call to [facility] to update, left message
Updated daughter, Martha, agreeable to d/c today and can transport patient
Updated patient bedside, IMM verbally reviewed, copy given to patient, copy on chart
[facility]
Report: [phone] (ASK FOR NURSE)

Plan: D/c back to [facility] today. Daughter will transport
[2025-04-05 11:32] VITALS: BP 123/66
[2025-04-05 11:52] LABS: Glucose - Point of Care 132 mg/dl (70-99)
--- NOTE | 2025-04-05 12:27 | W.PN.ONC2 ---
Today's Communication / Plan
-
.
Impression
Impression
- Severe iron deficiency anemia
- atrial fibrillation on eliquis
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
Plan
Plan
- pt presenting with severe anemia which is new compared to labs in October post-TAVR which, at that time showed possibly a mild anemia developing on pre-op labs with hgb 10-11 g/dl from 12-13 g/dl in July.
- severe MATHIEU with IS 4%, ferritin 6.2 ng/ml. B12, folate normal. pt denies obvious bleeding symptoms. FOBT by GI negative.
- no active hemolysis with normal haptoglobin.
- even if stool negative now some bleeding event likely occurred to lead to such a severe anemia over 4-5 months with such severe MATHIEU. Pt and family deferred endoscopic evaluation which I feel is reasonable at her age but may need to be
reconsidered depending on hgb trend/need for repeat transfusions.
- s/p 4 units prbcs and s/p ferrlecit 03/31 -04/04
- cardiology will need to weigh risks and benefits of resuming DOAC for AF depending on hgb trend.
- will arrange for hematology follow up for ongoing monitoring and management of anemia.
Subjective/Objective
Subjective
no new complaints
denies bleeding
denies pain
Vital Signs:
Vital Signs
Temp Pulse Resp BP Pulse Ox
98.3 F 98 20 112/59 96
04/05/25 07:49 04/05/25 10:10 04/05/25 07:49 04/05/25 10:10 04/05/25 07:49
Lab Results:
Laboratory Data
WBC 6.5 10^3/uL (4.8-10.8) 04/05/25 07:04
Hgb 8.6 g/dL (12.0-16.0) L 04/05/25 07:04
Plt Count 155 10^3/uL (130-400) 04/05/25 07:04
PT 20.9 Sec (11.4-14.6) H 03/29/25 15:30
INR 1.78 03/29/25 15:30
APTT 33.7 Sec (23.4-35.0) 03/29/25 15:30
eGFR > 60.00 04/05/25 07:04
Physical Exam
HEENT: Moist Mucous Membranes; No Jaundice
Cardiology: Murmur
Pulmonary: Other (unlabored)
GI: Soft
Extremities: Pulses Present; No Edema
--- NOTE | 2025-04-05 13:30 | W.PN.HOSP.TC ---
Addendum entered and electronically signed by Estrada Lange MD 04/05/25 15:35:
[id number]
Addendum entered and electronically signed by Estrada Lange MD 04/05/25 13:40:
#Hypokalemia
� Monitor and replete
Original Note:
Today's Communication/Plan
-
po iron
po lasix
f/u cbc in 3-5 days
start on bb
f/u with pcp, hematology, cardiology outpt
Assessment / Plan
Assessment / Plan
#Severe iron deficiency anemia
#Acute blood loss anemia (?)
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
-S/p 3 units of PRBC prior to 04/02; initial hemoglobin 4.0 which was a significant drop from previous baseline near 11.0
-Patient was previously on Eliquis which has since been discontinued; Hemoccult negative, LFTs WNL, mildly elevated LDH
-Did have significant iron deficiency on previous iron studies, started on IV iron day 12/20
-CBC morning of 04/02 showed hemoglobin drop from 7.7-6.9
-Ordered 1 unit PRBC on 04/02, will make 4U total on this hospital stay; i suspect 6.9 was spurious
-ECHO - severe MR;
-Continue to trend CBC and transfuse for Hgb <7 or present symptoms
-Continue with IV iron while hospitalized, plan for p.o. at discharge
-Discontinued Eliquis
-F/u CBC in 3-5 days
-If continued hgb drop, then may need to consider GI work up; family opted out inpatient
#Paroxysmal atrial fibrillation/flutter
-Currently sinus rhythm
-Continue amiodarone
-DC eliquis due to severe MATHIEU
-start on bb
#CKD stage IIIa
-Baseline creatinine near 0.8-1.0, GFR mid 40s to 50s
-Creatinine has been stable here
#Hypokalemia.
-Replace and monitor
#Essential hypertension
-Continue lisinopril
#Hyperlipidemia
-Continue statin
#Type 2 diabetes
-Insulin sliding scale
#Anxiety/depression
-Continue sertraline
#Acute HFpEF, 2/2 to to iatrogenic volume overload with blood transfusions
#Lower extremity edema
-IV lasix - switch back to PO regimen
-On Continue PO Lasix MWF. Monitor for volume overload with ongoing transfusion requirements
CODE STATUS: DNR/DNI
DVT prophylaxis: SCDs
Diet: cardiac diet
More than 30 minutes spent in discharge including
Final examination of the patient
Summarizing hospital stay
Instructions for continuing care to all relevant caregivers
Preparation of discharge records, prescriptions, and referral forms
Total time spent (in minutes): 36
Anticipated Discharge: Today
Subjective/Interval History
-
Date of Service: April 05, 2025
No acute events
Objective Data
-
Labs:
Laboratory Results
04/05/25
07:04
WBC 6.5
Hgb 8.6 L
Hct 29.7 L
Plt Count 155
Sodium 144
Potassium 3.3 L
Chloride 109 H
Carbon Dioxide 31 H
BUN 11
Creatinine 0.8
Glucose 89
Calcium 8.2 L
Vital Signs:
Vital Signs
Temp Pulse Resp BP Pulse Ox
97.7 F 94 18 123/66 98
04/05/25 11:32 04/05/25 11:32 04/05/25 11:32 04/05/25 11:32 04/05/25 11:32
I&O
04/04/25 04/05/25 04/06/25
06:59 06:59 06:59
Intake Total 610 / 610 1430 / 1430
Output Total 2950 / 2950
Balance 610 / 610 -1520 / -1520
Review of Systems
-
History Source: Patient
All other systems: Not reviewed unless documented
Physical Exam
-
General: Well Developed, Well Nourished, No Apparent Distress and Other (Frail-appearing)
HEENT: Normocephalic, Atraumatic, Moist Mucous Membranes and Anicteric
Respiratory: Clear to Auscultation and Non Labored Respirations; Negative Accessory Resp Muscle Use
Cardiac: Regular Rhythm, S1/S2, Murmur and Carotid Pulses (WNL); Negative Rub, JVD or Gallop
GI: Soft, Nontender, Nondistended and Normal Bowel Sounds
Musculoskeletal: No Clubbing, No Cyanosis and No Edema
Skin: Warm, Dry and Normal Turgor; Negative Rash or Jaundice
Neuro: AO x 3 and Nonfocal/Grossly Intact; Negative Tremors
Psych: Calm
Data Reviewed
-
Diagnostic Radiology: Report Reviewed by me
Labs: Labs Reviewed by me, Discussed with Nurse and Discussed with Patient
--- NOTE | 2025-04-05 13:37 | W.DS.TRANS ---
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
-
Discharge Instructions:
Sleep Apnea Risk Intermediate
Discharge Diagnosis/Procedures Severe iron deficiency anemia
atrial fibrillation on eliquis
Diet Low Cholesterol,Low Fat
Activity As tolerated
Blood Work cbc in 3-5 days
Instructions:
Stand-Alone Forms:
Changes to Home Medications: Yes
Discharge Medications:
DC Medications w/original date entered in [facility]
ascorbic acid (vitamin C) 500 mg tablet (Vitamin C) 500 mg PO DAILY supplement 07/24/23
atorvastatin 10 mg tablet 10 mg PO QPM 30 days #0 tabs 07/30/23
furosemide 20 mg tablet 20 mg PO MOWEFR Fluid Retention/Swelling 02/03/24
lisinopril 5 mg tablet 5 mg PO BID Blood Pressure 02/03/24
cyanocobalamin (vitamin B-12) 1,000 mcg tablet (Vitamin B-12) 1,000 mcg PO MO Supplement 09/06/24
sertraline 25 mg tablet 25 mg PO DAILY Mental Health/Anxiety 09/06/24
calcium 200 mg (as citrate)-vitamin D3 6.25 mcg (250 unit) tablet (Citracal-D3 Petites) 2 tab PO BID Supplement 10/09/24
sennosides 8.6 mg capsule (senna) 17.2 mg PO HS Gastrointestinal Issue 10/19/24
amiodarone 100 mg tablet 100 mg PO DAILY #30 tabs 10/20/24
acetaminophen 325 mg tablet 650 mg PO Q6HPRN PRN MILD PAIN 03/29/25
ferrous sulfate 325 mg (65 mg iron) tablet (FeroSul) 325 mg PO DAILY #30 tabs 04/05/25
metoprolol tartrate 25 mg tablet 12.5 mg (1/2 x 25 mg) PO Q12 30 days #30 tabs 04/05/25
miconazole nitrate 2 % topical powder (Miconazorb AF) 1 applic topical BID #85 grams 04/05/25
pantoprazole 40 mg tablet,delayed release 40 mg PO BID 30 days #60 tabs 04/05/25
Home Medication Changes
ferrous sulfate 325 mg (65 mg iron) tablet (FeroSul) 325 mg PO DAILY #30 tabs 04/05/25
metoprolol tartrate 25 mg tablet 12.5 mg (1/2 x 25 mg) PO Q12 30 days #30 tabs 04/05/25
miconazole nitrate 2 % topical powder (Miconazorb AF) 1 applic topical BID #85 grams 04/05/25
pantoprazole 40 mg tablet,delayed release 40 mg PO BID 30 days #60 tabs 04/05/25
Pending Results: No
[2025-04-05] MEDS: TYLENOL 650 MG PO (15:36)
[2025-04-05 15:58] VITALS: BP 131/49
== END 2025-04-05 17:02 | disposition home health service (06) | DRG 811 ==
LOC: 4 EAST ACU 19:02
PROVIDERS: General Practice; Internal Medicine; Nurse Practitioner Family; Student in an Organized Health Care Education/Training Program; ADMITTING PHYSICIAN Hospitalist; ATTENDING PHYSICIAN Internal Medicine; CONSULT PHYSICIAN Internal Medicine Gastroenterology; CONSULT PHYSICIAN Internal Medicine Hematology & Oncology; EMERGENCY PHYSICIAN Emergency Medicine; FAMILY PHYSICIAN Hospitalist; OTHER PHYSICIAN Internal Medicine
PROC: 30233N1 Transfusion of Nonautologous Red Blood Cells into Peripheral Vein, Percutaneous Approach (ICD-10-PCS; 2025-03-29)
DX: D62 Acute posthemorrhagic anemia (principal); I50.33 Acute on chronic diastolic (congestive) heart failure; K76.7 Hepatorenal syndrome; I13.0 Hypertensive heart and chronic kidney disease with heart failure and stage 1 through stage 4 chronic kidney disease, or unspecified chronic kidney disease; I48.92 Unspecified atrial flutter; D50.9 Iron deficiency anemia, unspecified; I48.0 Paroxysmal atrial fibrillation; N18.31 Chronic kidney disease, stage 3a; E11.22 Type 2 diabetes mellitus with diabetic chronic kidney disease; E78.00 Pure hypercholesterolemia, unspecified; I34.0 Nonrheumatic mitral (valve) insufficiency; F32.A Depression, unspecified; E11.649 Type 2 diabetes mellitus with hypoglycemia without coma; E87.6 Hypokalemia; Z66 Do not resuscitate; Z79.01 Long term (current) use of anticoagulants; Z90.49 Acquired absence of other specified parts of digestive tract; Z85.51 Personal history of malignant neoplasm of bladder; Z85.820 Personal history of malignant melanoma of skin; Z88.5 Allergy status to narcotic agent; Z88.2 Allergy status to sulfonamides; Z95.2 Presence of prosthetic heart valve; Z11.52 Encounter for screening for COVID-19
CPT/HCPCS: 93308; 36430; 71045; 80048; 80053; 82607; 82728; 82746; 82962; 83010; 83036; 83540; 83550; 83615; 83735; 84484; 85014; 85018; 85025; 85027; 85045; 85610; 85730; 86850; 86900; 86901; 86920; 87070; 87502; 87811; 93005; 93321; 93325; 94640; 97162; 97166; 97530; 97535; 99285; J2916; P9016